=== PATIENT | male | born 1960 | race Two or more races ===

== ENCOUNTER 2020-06-12 12:53 | Outpatient (REF) | payer OTHER, SELFPAY ==
--- NOTE | 2020-06-12 | US_ITS ---
EXAMINATION: RIGHT and LEFT LOWER EXTREMITY VENOUS ULTRASOUND (Reflux Exam) CLINICAL INDICATION: leg pain and varicose veins. COMPARISON: None. TECHNIQUE: Color flow triplex imaging and compression Doppler was performed to evaluate both the deep and the superficial systems bilaterally. To evaluate the superficial system, the examination was performed in the upright position. Color-flow Doppler ultrasound and compression ultrasound were utilized. In addition, maneuvers were utilized to demonstrate reflux. FINDINGS: 1. DEEP VENOUS ULTRASOUND OF THE RIGHT LOWER EXTREMITY: Respiratory variation, normal compression and augmented flow are noted in the right common femoral vein as well as the right popliteal vein and there is no evidence of deep venous thrombosis at these locations. There is no evidence of reflux in the deep system in either the common femoral vein or the popliteal vein. There is no evidence of a Roberson's cyst. 2. SUPERFICIAL ULTRASOUND WITH DOPPLER OF RIGHT LOWER EXTREMITY: The right great saphenous vein at the saphenofemoral junction measures 7 mm, at the mid thigh 2 mm, jkfph-hah-bdqd 2 mm, ldjoo-nkk-esof 2 mm, at mid calf 2 mm and at the ankle measures 2 mm. There is no reflux demonstrated in the right great saphenous vein. There is a small lateral accessory right greater saphenous vein that measures 2 mm and does not demonstrate reflux. The right small saphenous vein measures 1 mm and shows no reflux. There is a varicosity in the mid thigh and at the knee that measure 4 mm and do not demonstrate reflux. 3. DEEP VENOUS ULTRASOUND OF THE LEFT LOWER EXTREMITY: Respiratory variation, normal compression and augmented flow are noted in the left common femoral vein as well as the left popliteal vein and there is no evidence of deep venous thrombosis at these locations. There is no evidence of reflux in the deep system in either the common femoral vein or the popliteal vein. . There is no evidence of a Roberson's cyst. 4. SUPERFICIAL ULTRASOUND WITH DOPPLER OF LEFT LOWER EXTREMITY: Left great saphenous vein at the saphenofemoral junction measures 5 mm, at the mid thigh 3 mm, jmnxr-qdo-zzlg 2 mm, beocn-jes-cbgo 4 mm, at mid calf to mm and at the ankle measures 2 mm. There is 3.4 seconds reflux in the left greater saphenous vein at the mid thigh and at the knee. There is an accessory lateral greater saphenous vein that measures 3 mm and does not demonstrate reflux. The left small saphenous vein measures 1-2 mm and shows no reflux. IMPRESSION: 1. No evidence of reflux or thrombus in the common femoral veins or popliteal veins bilaterally. 2. Left greater saphenous vein reflux. No right greater saphenous vein reflux.
== END 2020-06-12 12:54 | disposition home or self-care (01) ==
LOC: HO.US 12:53
PROVIDERS: Visit Provider Surgery Vascular Surgery
DX: I83.12 Varicose veins of left lower extremity with inflammation (principal)
CPT/HCPCS: 93970

== ENCOUNTER → 2020-06-26 13:02 | Outpatient (BNVA) | payer OTHER, SELFPAY | PROVIDERS: PCP Internal Medicine; Visit Provider Surgery Vascular Surgery | DX: Z76.89 Persons encountering health services in other specified circumstances (principal) ==

== ENCOUNTER → 2020-07-25 10:28 | Outpatient (BNVA) | payer OTHER, SELFPAY | PROVIDERS: PCP Internal Medicine; Visit Provider Surgery Vascular Surgery | DX: I83.12 Varicose veins of left lower extremity with inflammation (principal) | CPT/HCPCS: 36482 ==

== ENCOUNTER → 2020-08-07 12:57 | Outpatient (BNVA) | payer OTHER, SELFPAY | PROVIDERS: PCP Internal Medicine; Visit Provider Surgery Vascular Surgery | DX: Z76.89 Persons encountering health services in other specified circumstances (principal) ==

== ENCOUNTER → 2020-08-08 14:25 | Outpatient (BNVA) | payer OTHER, SELFPAY | PROVIDERS: PCP Internal Medicine; Referring Provider Internal Medicine; Visit Provider Nurse Practitioner | DX: Z76.89 Persons encountering health services in other specified circumstances (principal) ==

== ENCOUNTER → 2020-08-22 11:23 | Outpatient (BNVA) | payer OTHER, SELFPAY | PROVIDERS: PCP Internal Medicine; Referring Provider Internal Medicine; Visit Provider Surgery Vascular Surgery | DX: I83.12 Varicose veins of left lower extremity with inflammation (principal) | CPT/HCPCS: 37766 ==

== ENCOUNTER → 2020-09-04 10:24 | Outpatient (BNVA) | payer OTHER, SELFPAY | PROVIDERS: PCP Internal Medicine; Visit Provider Surgery Vascular Surgery | DX: Z76.89 Persons encountering health services in other specified circumstances (principal) ==

== ENCOUNTER 2021-07-02 09:02 | Outpatient (REF) | payer OTHER, SELFPAY ==
--- NOTE | 2021-07-02 | PFT_ITS ---
FLOWS: FEV1 109% of predicted at 3.88 L. FVC 101% of predicted at 4.64 L. FEV1 to FVC ratio of 0.84. No bronchodilator response. LUNG VOLUMES: Total lung capacity 107% of predicted at 7.53 L. Residual volume 114% of predicted at 2.65 L. Slow vital capacity 104% of predicted at 4.89 L. Expiratory reserve volume 66% of predicted at 0.91 L. Diffusion capacity is normal. IMPRESSION: No obstructive or restrictive ventilatory defect. No bronchodilator response. Normal pulmonary function test. MD TIAGO Morales/MODL / [id number] MTDD
== END 2021-07-02 09:03 | disposition home or self-care (01) ==
LOC: HO.RESP 09:02
PROVIDERS: PCP Internal Medicine; Visit Provider Internal Medicine
DX: R05.9 Cough, unspecified (principal)
CPT/HCPCS: 94060; 94727; 94729

== ENCOUNTER → 2021-08-10 12:56 | Outpatient (BNVA) | payer OTHER, SELFPAY | PROVIDERS: PCP Internal Medicine; Referring Provider Internal Medicine; Visit Provider Nurse Practitioner ==

== ENCOUNTER 2021-12-24 08:24 | Day surgery (SDC) | payer OTHER, SELFPAY ==
[2021-12-16 12:46] VITALS: BMI 28.5
[2021-12-24 08:26] VITALS: BP 163/92; PULSE 69; RESP 18; TEMP 36.6; O2SAT 100
--- NOTE | 2021-12-24 08:55 | MHC.SHP ---
Pre-Procedural Eval Section A Date of Service: 12/24/21 Section B Chief Complaint: screening Details of Present Illness: FHX of CRC, brother at age 45 of CRC. Relevant Family History (Specify if Yes): Yes Relevant Social History: None Present Medications: see Short Stay Collaborative assessment Medical History: Significant History (HTN, Hep C, varicose veins ) History of Previous Operations: Relevant previous surgery/procedure and date(s) (History of colonoscopy Mass of ureter) Allergies: Allergies Allergy/AdvReac Type Severity Reaction Status Date / Time SEASONAL ALLERGIES Allergy Unknown UNKNOWN Uncoded 05/22/20 15:12 Review of Systems Sugical H&P ROS: Negative: Constitution, Cardiovascular, Respiratory, Neurological, Psychiatric, Hem-Onc, Allergic/Immunologic, Gastrointestinal, Genitourinary, Musculoskeletal, Integumentary, Endocrine and Eyes/Ears/Nose/Throat Exam Surgical H&P Exam: Normal: HEENT, Normal: Heart, Normal: Lungs, Normal: Extremities, Normal: Abdomen, Normal: Skin and Normal: Neurological Plan Diagnosis/Plan: Unchanged I have reviewed the history and physical and performed a pertinent physical examination on my patient. No changes have occurred unless specified.
--- NOTE | 2021-12-24 09:26 | PM.OP ---
Brief Operative Note Date of Service: 12/24/21 Pre-op diagnosis: FH CRC Post-op diagnosis: same Procedure: see op note Surgeon: Hussein Whitehead MD Anesthesia: MAC Was an Wrecking Supervisor used for this Procedure?: No Estimated blood loss (mL): 0 Condition: stable Disposition: PACU
--- NOTE | 2021-12-24 09:27 | W.PM.OPN ---
Operative Note Operative Note Date of Service: 12/24/21 Narrative: Operative Information Procedure Description: Colonoscopy Indication: colon cancer screening, high risk-FH of CRC in brother Anesthesia: MAC COLONOSCOPY Instrument: Olympus variable stiffness pediatric scope 190L Colonoscopy Monitoring: Vital signs and clinical assessment, continuous EKG monitoring, Pulse oximetry, Carbon Dioxide monitoring and blood pressure monitoring were done throughout the procedure. Colon withdrawal time was 11 minutes. Procedure: The patient was placed in the left lateral decubitis position and pre-procedure medications were administered. After a digital rectal examination of the ano-rectum, the video colonoscope was inserted into the rectum and advanced through the colon to the cecum/TI. The colonoscope was slowly withdrawn in a retrograde panoramic fashion and the colon mucosa was carefully examined including a retroflexed view of the rectum. Findings and interventions are described below. Procedure Difficulty: easy Findings: Terminal Ileum-normal Right sided retroflexion was normal Cecum:normal Ascending Colon: normal Transverse Colon -normal Descending Colon:normal Sigmoid Colon: 9-10 mm sessile polyp removed with cold snare and then some residual tissue with cold forceps Rectum: Retroflexion with small internal hemorrhoids, grade I Anorectum - normal Colon preparation: [place] Bowel Preparation Scale Right colon; 2 Transverse colon: 3 Left colon; 3 (0 = Unprepared colon segment with mucosa not seen due to solid stool that cannot be cleared. 1 = Portion of mucosa of the colon segment seen, but other areas of the colon segment not well seen due to staining, residual stool and/or opaque liquid. 2 = Minor amount of residual staining, small fragments of stool and/or opaque liquid, but mucosa of colon segment seen well. 3 = Entire mucosa of colon segment seen well with no residual staining, small fragments of stool or opaque liquid) Impression and Post Procedure Diagnosis: polyp internal hemorrhoids Plan: High fiber diet leaflet Avoid straining at stool, epsom salts and sitz bath, anusol supps or cream Repeat Colonoscopy in 5 years due to FH of CRC or earlier if clinically indicated Above findings were reviewed with the patient and relevant handouts were provided if indicated.
[2021-12-24 10:05] VITALS: BP 94/48; PULSE 56; RESP 16; TEMP 36.5; O2SAT 98
[2021-12-24 10:20] VITALS: BP 116/67; PULSE 64; RESP 16; TEMP 36.5; O2SAT 100
== END 2021-12-24 10:42 | disposition home or self-care (01) ==
PROVIDERS: PCP Internal Medicine; Visit Provider Internal Medicine Gastroenterology
PROC: 0DJD8ZZ Inspection of Lower Intestinal Tract, Via Natural or Artificial Opening Endoscopic (ICD-10-PCS; CPT 45378; principal; 2021-12-24 10:10)
DX: Z12.11 Encounter for screening for malignant neoplasm of colon (principal); Z86.010 Personal history of colon polyps; Z80.0 Family history of malignant neoplasm of digestive organs; K63.5 Polyp of colon; K64.0 First degree hemorrhoids; B19.20 Unspecified viral hepatitis C without hepatic coma; I10 Essential (primary) hypertension; R73.9 Hyperglycemia, unspecified; Z79.899 Other long term (current) drug therapy
CPT/HCPCS: 45385; 45380; 88305

== ENCOUNTER 2022-06-24 07:41 | Outpatient (REF) | payer OTHER, SELFPAY ==
--- NOTE | ~2022-06-24 | US_ITS ---
EXAMINATION: US COMPLETE ABDOMEN WITH LIVER ELASTOGRAPHY CLINICAL INFORMATION: Chronic viral hepatitis C COMPARISON: None. TECHNIQUE: Real-time imaging of the abdominal viscera. Noninvasive ultrasound liver fibrosis assessment is performed using Aissat[employer] ElastPQ point quantification shear wave elastography (2D-SWE) with a C5-2 MHz transducer. Multiple elastography samples are obtained. FINDINGS: PANCREAS: Normal. ABDOMINAL AORTA: The proximal, middle, and distal aortic segments are normal in caliber. There is evidence of atherosclerotic disease with vessel wall calcification. INFERIOR VENA CAVA: Visualized portions are normal. LIVER: Liver echotexture is slightly heterogeneous. No focal lesion or intrahepatic biliary duct dilatation. The left lobe is enlarged. The right lobe measures 12 cm in length. The left lobe measures 13.6 cm in length. Portal flow is normal/hepatopedal Shear wave liver elastography median stiffness is 2 m/s (reference: normal median stiffness is 1.3 m/s or less). IQR/median stiffness to assess sampling precision is 0.07 (reference: good quality data set is IQR/median stiffness of 0.15 or less). GALLBLADDER: Small 2 mm echogenic density adjacent to the gallbladder wall probably representing a small gallbladder wall polyp. No definite gallstones. Normal-size gallbladder. COMMON BILE DUCT: Normal in caliber measuring 0.5 cm in diameter. RIGHT KIDNEY: Normal. No hydronephrosis. No renal calculi or focal parenchymal lesions. The kidney measures 12 cm in maximum dimension. LEFT KIDNEY: Normal. No hydronephrosis. No renal calculi or focal parenchymal lesions. The kidney measures 12.6 cm in maximum dimension. SPLEEN: The spleen is enlarged. The spleen measures 15.6 cm in maximum dimension. FREE FLUID: None. US/US abdomen comp w elastography IMPRESSION: 1. Impression: Question mild cirrhotic changes of the liver. No focal liver lesion. Small gallbladder wall polyp. Enlarged spleen. No ascites. 2. Liver elastography: Adequate liver sampling. Increased liver stiffness suggestive of compensated advanced chronic liver disease but need further test for confirmation. REFERENCE: Society of Radiologists in Ultrasound Liver Stiffness Thresholds (2019): LIVER STIFFNESS THRESHOLDS: *Liver Stiffness equal or less than 1.3 m/s: High probability of being normal. *Liver Stiffness less than 1.7 m/s: In the absence of other known clinical signs, rules out compensated advanced chronic liver disease. *Liver Stiffness 1.7-2.1 m/s: Suggestive of compensated advanced chronic liver disease but need further test for confirmation. *Liver Stiffness over 2.1 m/s: Rules in compensated advanced chronic liver disease. *Liver Stiffness over 2.4 m/s: Suggestive of clinically significant portal hypertension. QUALITY OF DATA SET: *IQR/Median value equal or less than 0.15 implies a quality data set. *IQR/Median value over 0.15 implies a poor quality data set. SIGNIFICANT CHANGE FROM PRIOR EXAM: Significant change if liver stiffness measurement is 10% or greater from prior exam. OTHER CONSIDERATIONS: The stage of liver fibrosis may be overestimated in the setting of acute hepatitis, liver inflammation, elevated liver function tests, hepatic vascular congestion, obstructive cholestasis, non-fasting state, and infiltrative diseases such as amyloidosis and lymphoma. In some patients with NAFLD, the liver stiffness thresholds for compensated advanced chronic liver disease may be lower. In causes other than viral hepatitis and NAFLD, liver stiffness thresholds are not well established.
== END 2022-06-24 07:42 | disposition home or self-care (01) ==
LOC: HO.US 07:41
PROVIDERS: PCP Internal Medicine; Visit Provider Internal Medicine
DX: B18.2 Chronic viral hepatitis C (principal)
CPT/HCPCS: 76705; 76981

== ENCOUNTER 2023-06-22 08:08 | Outpatient (AMB) | payer MEDICARE, SELFPAY ==
--- NOTE | 2023-06-22 08:16 | A.OFFVIS_ITS ---
Intake Vital Signs 06/22/23 08:17 Height 5 ft 9 in Weight 170 lb BMI 25.1 BP 144/60 H Blood Pressure Location Lt brachial Position Sitting Pulse 62 Intake Visit Reasons: Hep C follow up Intake Note: Patient follow up for HCV Patient denies any GI issues. Morning Nanny Required: No Accompanied by: Self / Same As Patient Allergies SEASONAL ALLERGIES Allergy (Unknown, Uncoded 02/23/22 13:26) UNKNOWN HPI Hep C follow up HPI Details This is a [facility] patient and last time I saw in the setting hepatitis C was being treated in-house by their providers. He says says he was tx'ed for Hep C but did not achieve SVR. He has an upcoming appt with his Hep C provider to discuss re treatment. He says he has insurance problems and coverage problems with the tx. CURRENT CORRESPONDENCE On 06/21/23 @ 13:47 Laure Abbott Wrote To ScarLaure (2) Okay, now that makes more sense. No I should be able to handle this. On 06/21/23 @ 13:39 Sohan Johnson Wrote To ScarDecember Per [facility] notes reviewed patient was treated for Hep C by Dr. Mcbride on 2019 but PT failed treatment with Epclusa. He was referred to us back in September this year for management of Hep C and liver cirrhosis. Should he go to MD? PMX Allergic rhinitis Hepatitis C Hypertension Mild varicose veins of lower extremities Impaired fasting glucose Nocturia Erectile dysfunction Housing instability Allergic rhinitis Tubular adenoma * SURGICAL HISTORY Colonoscopy Removal of ureter mass 2012 * ALLERGIES Jey inhibitors * LABS SUPPLIED BY PCP: 06/15/2022 AST/ALT 176/119 alk-phos is normal total bilirubin 1.0, unremarkable renal panel, GGT 51, ULTRASOUND OF THE ABDOMEN WITH ELASTOGRAPHY. 06/30/22 (F-2.) .FINDINGS: PANCREAS: Normal. ABDOMINAL AORTA: The proximal, middle, and distal aortic segments are normal in caliber. There is evidence of atherosclerotic disease with vessel wall calcification. INFERIOR VENA CAVA: Visualized portions are normal. LIVER: Liver echotexture is slightly heterogeneous. No focal lesion or intrahepatic biliary duct dilatation. The left lobe is enlarged. The right lobe measures 12 cm in length. The left lobe measures 13.6 cm in length. Portal flow is normal/hepatopedal Shear wave liver elastography median stiffness is 2 m/s (reference: normal median stiffness is 1.3 m/s or less). IQR/median stiffness to assess sampling precision is 0.07 (reference: good quality data set is IQR/median stiffness of 0.15 or less). GALLBLADDER: Small 2 mm echogenic density adjacent to the gallbladder wall probably representing a small gallbladder wall polyp. No definite gallstones. Normal-size gallbladder. COMMON BILE DUCT: Normal in caliber measuring 0.5 cm in diameter. RIGHT KIDNEY: Normal. No hydronephrosis. No renal calculi or focal parenchymal lesions. The kidney measures 12 cm in maximum dimension. LEFT KIDNEY: Normal. No hydronephrosis. No renal calculi or focal parenchymal lesions. The kidney measures 12.6 cm in maximum dimension. SPLEEN: The spleen is enlarged. The spleen measures 15.6 cm in maximum dimension. FREE FLUID: None. US/US abdomen comp w elastography IMPRESSION: 1. Impression: Question mild cirrhotic c hanges of the liver. No focal liver lesion. Small gallbladder wall polyp. Enlarged spleen. No ascites. 2. Liver elastography: Adequate liver s ampling. Increased liver stiffness suggestive of compensated advanced chronic liver disease but need further test for confirmation. TODAY'S VISIT THIS PATIENT HAS NOT BEEN SEEN SINCE 10/2021 No sgn/sx of liver disease. No ETOH, no repeat IVDU etc. he has failed to reg imens 1 years back PEG interferon/ribavirin and then Epclusa treatment more recently. He says he was told years ago that he had a ?harder to cure? genotype. Since I have no information on genotype last viral load etc. I will need to retest him. This is also true because it has been over a year since his last labs and his last ultrasound with elastography. I explained to him that this really is an insurance requirement and also will help ensure that there are no problems to risk his health or the success of treatment. Once I noted that he does not or does have any [place] hepatitis-B infection to watch for and once I have the labs then we will consider starting him on Vosevi rescue therapy. Time was spent educating him that this treatment should be well tolerated along same lines as his Epclusa.. He is very eager a to be cured. He is trying to live ?as clean as possible? he is trying to attended his diet he exercises regularly and does not engage in any unhealthy habits. He does have hypertension which is well controlled. At this point return office visit in 8 weeks or sooner depending on how long it takes us to get the ultrasound. He is going to go update his insurance information with my staff in the front office so that this will be ready when we try to go get a prior approval for his medications. [facility] Medical History (Updated 06/22/23 @ 10:04 by MUKUL Slade) Hepatitis Hyperglycemia Complications affecting other specified body systems, hypertension Surgical History History of colonoscopy Mass of ureter Family History Father No problems noted. Mother Family history of high blood pressure Social History Alcohol intake: never Patient Tobacco Use Status: Never used Tobacco Advance Directives Date on File: 06/12/20 Review of Systems Const Denies fatigue, Denies fever(s), Denies night sweats, Denies poor appetite and Denies weight loss Eyes Details: glasses Reports requires corrective lenses ENT Reports Normal hearing present, Denies dental pain, Denies dysphagia, Denies hearing loss, Denies mouth pain, Denies odynophagia, Denies throat swelling, Denies tongue swelling and Reports other (Dentition adequate) Card Reports no additional complaints Resp Reports no additional complaints GI Denies abdominal pain, Denies melena, Denies bloating, Denies hematochezia, Denies constipation, Denies GI cramping, Denies dysphagia, Denies excessive flatus, Denies early satiety, Denies heartburn, Denies diarrhea, Denies nausea, Denies odynophagia, Denies vomiting and Denies hematemesis Skin/Breast Denies pruritus, Denies lesions, Denies rash and Denies jaundice Neuro Reports Normal hearing present and Denies Abnormal speech present Endo Denies fatigue Aller/Immun Denies throat swelling and Denies tongue swelling Physical Exam Vital Signs: Last Vital Signs Pulse 62 06/22/23 08:17 BP 144/60 H 06/22/23 08:17 BMI result Body Mass Index 25.1 Const General: cooperative, no acute distress, well developed and well groomed Nutritional Appearance: average body habitus and well nourished Orientation/consciousness: oriented to person, oriented to place and oriented to time Limitations: No language barrier HEENT Head: Yes normocephalic and Yes atraumatic Eyes General: appearance normal, both eyes and all related structures Pupils: Equal, round and reactive pupils present Neck Neck: Yes normal visual inspection and Yes no lymphadenopathy Thyroid: Thyroid normal Resp Effort & Inspection: normal respiratory effort and able to speak in complete sentences Auscultation: clear to auscultation bilaterally Cardio Rate: regular rate Rhythm: regular rhythm Heart sounds: Normal, physiologic split S2 sound present Peripheral pulses: radial pulses present and posterior tibial pulses present GI Inspection: No distended and No Abdominal panniculus present Palpation (GI): Soft to palpation, nontender, no guarding, not rigid and No hepatosplenomegaly present Percussion: Yes normal to percussion Auscultation: normal bowel sounds Rectal Exam - Male: Yes deferred Skin General skin exam: no rashes or lesions noted, turgor normal, skin not dry, no jaundice, No spider nevi and no striae Rashes: no rashes Nails: normal Neuro General: oriented to person, oriented to place and oriented to time Cranial nerves: Yes Equal, round and reactive pupils present and Yes Normal hearing present Speech: No Abnormal speech present Extrem General: Yes normal to inspection, No clubbing, No cyanosis and No edema Psych Appearance: grossly normal and well kempt Mental Status: mental status grossly normal Speech and movement: Normal speech and movement present Affect: normal affect Attitude: cooperative Thought process: Normal thought process present and not confabulating Thought content: Normal thought content present Insight: Fair insight present (Psych) Judgement: Fair judgement present (Psych) Assessment & Plan Assessment & Plan (1) Hepatitis C: Comment: In the past was treated by [facility] but recently failed to have a sustained viral clearance status post Epclusa and was referred to our services Code(s): B19.20 - Unspecified viral hepatitis C without hepatic coma Plan: THIS PATIENT HAS NOT BEEN SEEN SINCE 10/2021 No sgn/sx of liver disease. No ETOH, no repeat IVDU etc. he has failed to regimens 1 years back PEG interferon/ribavirin and then Epclusa treatment more recently. He says he was told years ago that he had a ?harder to cure? genotype. Since I have no information on genotype last viral load etc. I will need to retest him. This is also true because it has been over a year since his last labs and his last ultrasound with elastography. I explained to him that this really is an insurance requirement and also will help ensure that there are no problems to risk his health or the success of treatment. Once I noted that he does not or does have any [place] hepatitis-B infection to watch for and once I have the labs then we will consider starting him on Vosevi rescue therapy. Time was spent educating him that this treatment should be well tolerated along same lines as his Epclusa.. He is very eager a to be cured. He is trying to live ?as clean as possible? he is trying to attended his diet he exercises regularly and does not engage in any unhealthy habits. He does have hypertension which is well controlled. At this point return office visit in 8 weeks or sooner depending on how long it takes us to get the ultrasound. He is going to go update his insurance information with my staff in the front office so that this will be ready when we try to go get a prior approval for his medications. (2) Transaminitis: Code(s): R74.01 - Elevation of levels of liver transaminase levels Orders: Orders Hepatitis C Viral Load Today B19.20 - Unspecified viral hepatitis C without hepatic coma, R74.01 - Elevation of levels of liver transaminase levels Liver Fibrosis Pnl Today B19.20 - Unspecified viral hepatitis C without hepatic coma, R74.01 - Elevation of levels of liver transaminase levels T Spot TB Today B19.20 - Unspecified viral hepatitis C without hepatic coma, R74.01 - Elevation of levels of liver transaminase levels Alpha Fetoprotein Today B19.20 - Unspecified viral hepatitis C without hepatic coma, R74.01 - Elevation of levels of liver transaminase levels JEFF Reflex Titer and Pattern Today B19.20 - Unspecified viral hepatitis C without hepatic coma, R74.01 - Elevation of levels of liver transaminase levels Hepatitis A,B,C Profile Today B19.20 - Unspecified viral hepatitis C without hepatic coma, R74.01 - Elevation of levels of liver transaminase levels Hepatitis C Genotype Today B19.20 - Unspecified viral hepatitis C without hepatic coma, R74.01 - Elevation of levels of liver transaminase levels Comprehensive Met. Panel Today B19.20 - Unspecified viral hepatitis C without hepatic coma, R74.01 - Elevation of levels of liver transaminase levels Complete Blood Count Auto Diff Today B19.20 - Unspecified viral hepatitis C without hepatic coma, R74.01 - Elevation of levels of liver transaminase levels US abdomen comp w elastography Today B19.20 - Unspecified viral hepatitis C without hepatic coma, R74.01 - Elevation of levels of liver transaminase levels HIV Ab/Ag Today B19.20 - Unspecified viral hepatitis C without hepatic coma, R74.01 - Elevation of levels of liver transaminase levels Ferritin Today B19.20 - Unspecified viral hepatitis C without hepatic coma, R74.01 - Elevation of levels of liver transaminase levels Mitochondrial Antibody Today B19.20 - Unspecified viral hepatitis C without hepatic coma, R74.01 - Elevation of levels of liver transaminase levels Smooth Muscle Antibody Today B19.20 - Unspecified viral hepatitis C without hepatic coma, R74.01 - Elevation of levels of liver transaminase levels Coding Level of Care Code Est Pt Level 4 (52559) Diagnoses Hepatitis C B19.20 Transaminitis R74.01
[2023-06-22 08:17] VITALS: BP 144/60; PULSE 62; BMI 25.1
== END 2023-06-22 09:00 | disposition home or self-care (01) ==
PROVIDERS: PCP Internal Medicine; Visit Provider Nurse Practitioner
DX: B19.20 Unspecified viral hepatitis C without hepatic coma (principal); R74.01 Elevation of levels of liver transaminase levels
CPT/HCPCS: 99214

== ENCOUNTER 2023-06-22 08:08 | Outpatient (REF) | payer MEDICARE, SELFPAY ==
[2023-06-22 09:35] LABS: MANUAL DIFF FLAG NO
[2023-06-22 10:21] LABS: Basophils Percent Auto 0.5 % (0-2); Eosinophils Absolute Auto 0.1 X10*3/uL (0.0-0.4); Eosinophils Percent Auto 2.3 % (0-4); Hematocrit 42.5 % (42.0-52.0); Hemoglobin 14.9 g/dl (14.0-18.0); Imm Gran Abs Auto 0.01 X10*3/uL (0.00-0.03); Imm Gran Pct Auto 0.2 % (0.0-0.4); Lymphocytes Percent Auto 22.4 % (20-40); Mean Corpuscular HGB Conc 35.1 g/dl (31.0-36.0); Mean Corpuscular Hemoglobin 31.5 pg (27.0-33.0); Mean Corpuscular Volume 89.9 fL (80.0-98.0); Mean Platelet Volume 10.8 fL (9.4-12.4); Monocytes Absolute Auto 0.6 X10*3/uL (0.1-1.2); Monocytes Percent Auto 13.5 % (2-11); Neutrophils Absolute Auto 2.6 x10*3/uL (2.0-8.3); Neutrophils Percent Auto 61.1 % (45-73); Platelet Count 116 X10*3/uL (160-400); Red Blood Count 4.73 X10*6/uL (4.60-5.80); Red Cell Distribution Width 11.8 % (11.0-16.0); White Blood Count 4.3 X10*3/uL (4.8-10.8)
[2023-06-22 10:56] LABS: Alanine Aminotransferase 196 U/L (0-40); Albumin Level 3.8 g/dL (3.5-5.0); Alkaline Phosphatase 99 U/L (39-117); Anion Gap 13 (12-20); Aspartate Amino Transferase 114 U/L (5-37); Blood Urea Nitrogen 26 mg/dL (9-16); Calcium 9.2 mg/dL (8.4-10.2); Carbon Dioxide 23 mmol/L (22-29); Chloride 104 mmol/L (96-108); Estimated Glomerular Filt Rate > 60; Glucose Random 142 mg/dL (60-115); Potassium 4.1 mmol/L (3.3-5.1); Sodium 136 mmol/L (135-145); Total Protein 7.1 g/dL (6.5-8.0)
[2023-06-22 11:12] LABS: Ferritin 253 ng/mL (20-250); HBS Num1 67.44 mIU/mL (0-7.99); HBc Num1 4.77 S/CO (0.00-0.79); HBsAGNum1 0.39 S/CO (0.00-0.99); HIV AB/AG Nonreactive (Nonreactive); HIV Num 1 0.05 S/CO (0.00-0.99); Hepatitis A Antibody IgM 0.14 Index (0-0.79); Hepatitis B Surface Antigen Negative (Negative); ~HepC Num1 15.08 S/CO (0.00-0.79); ~Hepatitis A Antibody IgM Nonreactive (Nonreactive); ~Hepatitis B Surface Antibody REACTIVE (Nonreactive); ~Hepatitis C Antibody Reactive (Nonreactive)
[2023-06-22 12:14] LABS: HBc Num2 4.82 S/CO; HBc Num3 4.76 S/CO; Hepatitis B Core Antibody Reactive (Nonreactive)
[2023-06-23 12:38] LABS: Alpha Fetoprotein 4.8 ng/mL (<6.1)
[2023-06-24 11:54] LABS: Mitochondrial Antibodies NEGATIVE (NEGATIVE)
[2023-06-24 16:13] LABS: HCV RNA PCR Qn 3170000 IU/mL (NOT DETECTED)
[2023-06-24 22:23] LABS: TS Negative Control Passed; TS Panel A 0; TS Panel B 0; TS Positive Control Passed; TSpotTB Negative (Negative)
[2023-06-26 22:43] LABS: Smooth Muscle Antibody <20 U (<20)
[2023-06-27 10:00] LABS: Anti Nuclear Antibody Screen NEGATIVE (NEGATIVE)
[2023-06-29 10:13] LABS: HCV Genotype LiPA 1b
[2023-07-01 00:14] LABS: FIB-ALT 167 U/L (9-46); FIB-Alpha-2-Macroglobulin 329 mg/dL (106-279); FIB-Apolipoprotein A1 198 mg/dL (94-176); FIB-GGT 47 U/L (3-70); FIB-Haptoglobin 11 mg/dL (43-212); FIB-Total Bilirubin 0.9 mg/dL (0.2-1.2); Liver Fibrosis Score 0.84; Liver Fibrosis Stage F4; Nec Inflam Act Grade A3; Nec Inflam Act Score 0.88
== END 2023-06-22 08:09 | disposition home or self-care (01) ==
LOC: HO.LAB 08:08
PROVIDERS: PCP Internal Medicine; Visit Provider Nurse Practitioner
DX: B19.20 Unspecified viral hepatitis C without hepatic coma (principal); R74.01 Elevation of levels of liver transaminase levels; Z11.3 Encounter for screening for infections with a predominantly sexual mode of transmission
CPT/HCPCS: 36415; 80053; 81596; 82105; 82728; 85025; 86015; 86038; 86381; 86481; 86704; 86706; 86709; 86803; 87340; 87389; 87522; 87902; 99212

== ENCOUNTER 2023-07-21 09:50 | Outpatient (REF) | payer MEDICARE, SELFPAY ==
--- NOTE | ~2023-07-21 | US_ITS ---
EXAMINATION: US COMPLETE ABDOMEN WITH LIVER ELASTOGRAPHY CLINICAL INFORMATION: Viral hepatitis COMPARISON: Previous abdominal ultrasound most recent June 2022 TECHNIQUE: Real-time imaging of the abdominal viscera. Noninvasive ultrasound liver fibrosis assessment is performed using Aissat[employer] ElastPQ point quantification shear wave elastography (2D-SWE) with a C5-2 MHz transducer. Multiple elastography samples are obtained. FINDINGS: PANCREAS: Normal. ABDOMINAL AORTA: The proximal, middle aortic segments are normal in caliber. Distal abdominal aorta not well visualized due to bowel gas. INFERIOR VENA CAVA: Visualized portions are normal. LIVER: Echotexture is slightly increased and heterogeneous. The liver is normal in contour. The left lobe is enlarged. No focal lesion or intrahepatic biliary duct dilatation. The right lobe measures 12 cm in length. The left lobe measures 13 cm in length. Portal flow is normal/hepatopedal Shear wave liver elastography median stiffness is 2.2 m/s (reference: normal median stiffness is 1.3 m/s or less). Previous 1.97 m/s. IQR/median stiffness to assess sampling precision is 0.16 (reference: good quality data set is IQR/median stiffness of 0.15 or less). GALLBLADDER: two stable small polyps largest measuring 3 mm. The gallbladder is otherwise normal. No definite stones. COMMON BILE DUCT: Normal in caliber measuring 0.4 cm in diameter. RIGHT KIDNEY: Normal. No hydronephrosis. No renal calculi or focal parenchymal lesions. The kidney measures 11 cm in maximum dimension. LEFT KIDNEY: Normal. No hydronephrosis. No renal calculi or focal parenchymal lesions. The kidney measures 12 cm in maximum dimension. SPLEEN: The spleen is enlarged. The spleen measures 15 cm in maximum dimension. FREE FLUID: None. US/US abdomen comp w elastography IMPRESSION: 1. Impression: Slightly echogenic heterogeneous appearing liver. Enlarged spleen. Stable small gallbladder wall polyps. 2. Liver elastography: Slightly limited due to sampling error. Increased liver stiffness suggestive of compensated advanced chronic liver disease. REFERENCE: Society of Radiologists in Ultrasound Liver Stiffness Thresholds (2020): LIVER STIFFNESS THRESHOLDS: *Liver Stiffness equal or less than 1.3 m/s: High probability of being normal. *Liver Stiffness less than 1.7 m/s: In the absence of other known clinical signs, rules out compensated advanced chronic liver disease. *Liver Stiffness 1.7-2.1 m/s: Suggestive of compensated advanced chronic liver disease but need further test for confirmation. *Liver Stiffness over 2.1 m/s: Rules in compensated advanced chronic liver disease. *Liver Stiffness over 2.4 m/s: Suggestive of clinically significant portal hypertension. QUALITY OF DATA SET: *IQR/Median value equal or less than 0.15 implies a quality data set. *IQR/Median value over 0.15 implies a poor quality data set. SIGNIFICANT CHANGE FROM PRIOR EXAM: Significant change if liver stiffness measurement is 10% or greater from prior exam. OTHER CONSIDERATIONS: The stage of liver fibrosis may be overestimated in the setting of acute hepatitis, liver inflammation, elevated liver function tests, hepatic vascular congestion, obstructive cholestasis, non-fasting state, and infiltrative diseases such as amyloidosis and lymphoma. In some patients with NAFLD, the liver stiffness thresholds for compensated advanced chronic liver disease may be lower. In causes other than viral hepatitis and NAFLD, liver stiffness thresholds are not well established.
== END 2023-07-21 09:51 | disposition home or self-care (01) ==
LOC: HO.US 09:50
PROVIDERS: PCP Internal Medicine; Visit Provider Nurse Practitioner
DX: B19.20 Unspecified viral hepatitis C without hepatic coma (principal); R74.01 Elevation of levels of liver transaminase levels
CPT/HCPCS: 76705; 76981

== ENCOUNTER 2023-08-23 08:36 | Outpatient (AMB) | payer MEDICARE, SELFPAY ==
--- NOTE | 2023-08-23 08:54 | AM.OFFVISNUR ---
Intake Vital Signs 08/23/23 08:55 Height 5 ft 9 in Weight 173 lb BMI 25.5 Intake Visit Reasons: 2 month follow up Intake Note: Patient returns to in office visit today in 2 months follow up of hep C and labs. CC: Allergies SEASONAL ALLERGIES Allergy (Unknown, Uncoded 02/23/22 13:26) UNKNOWN Coding
[2023-08-23 08:55] VITALS: BP 154/80; PULSE 67; BMI 25.5
--- NOTE | 2023-08-23 08:59 | MHC.OFFVIS ---
Intake Vital Signs 08/23/23 08:55 Height 5 ft 9 in Weight 173 lb BMI 25.5 BP 154/80 H Blood Pressure Location Rt brachial Position Sitting Pulse 67 Intake Visit Reasons: 2 month follow up Intake Note: Patient returns to in office visit today in follow up of Hepatitis C. CC: Patient in 2 months follow up to discuss US and lab results. Reports doing well today and denies having any GI symptoms today. Instrument Sterilizer Required: No Accompanied by: Self / Same As Patient Allergies No Known Drug Allergies Allergy (Unknown, Verified 08/23/23 08:58) none SEASONAL ALLERGIES Allergy (Unknown, Uncoded 02/23/22 13:26) UNKNOWN Medication List - Last Reconciled 08/23/23 by MUKUL Slade blood pressure test kit-large As directed fluticasone propionate 50 mcg/actuation 1 spray intranasal BID losartan-hydrochlorothiazide 50-12.5 mg 1 tab PO DAILY sildenafil mg PO nyctjllboj-yelxvrsu-hfvtisyjry 400-100-100 mg (Vosevi) 1 tab PO DAILY tamsulosin 0.4 mg PO DAILY HPI 2 month follow up HPI Details Assessment & Plan (1) Hepatitis C: Comment: In the past was treated by [facility] but recently failed to have a sustained viral clearance status post Epclusa and was referred to our services Code(s): B19.20 - Unspecified viral hepatitis C without hepatic coma Plan: THIS PATIENT HAS NOT BEEN SEEN SINCE 10/2021 No sgn/sx of liver disease. No ETOH, no repeat IVDU etc. he has failed to regimens 1 years back PEG interferon/ribavirin and then Epclusa treatment more recently. He says he was told years ago that he had a ?harder to cure? genotype. Since I have no information on genotype last viral load etc. I will need to retest him. This is also true because it has been over a year since his last labs and his last ultrasound with elastography. I explained to him that this really is an insurance requirement and also will help ensure that there are no problems to risk his health or the success of treatment. Once I noted that he does not or does have any [place] hepatitis-B infection to watch for and once I have the labs then we will consider starting him on Vosevi rescue therapy. Time was spent educating him that this treatment should be well tolerated along same lines as his Epclusa.. He is very eager a to be cured. He is trying to live ?as clean as possible? he is trying to attended his diet he exercises regularly and does not engage in any unhealthy habits. He does have hypertension which is well controlled. At this point return office visit in 8 weeks or sooner depending on how long it takes us to get the ultrasound. He is going to go update his insurance information with my staff in the front office so that this will be ready when we try to go get a prior approval for his medications. (2) Transaminitis: Code(s): R74.01 - Elevation of levels of liver transaminase levels Orders: Orders Hepatitis C Viral Load Today B19.20 - Unspecifi ed viral hepatitis C without hepatic coma, R74.01 - El evation of levels of liver transamin ase levels Liver Fibrosis Pnl Today B19.20 - Unspecifi ed viral hepatitis C without hepatic coma, R74.01 - El evation of levels of liver transamin ase levels T Spot TB Today B19.20 - Unspecifi ed viral hepatitis C without hepatic coma, R74.01 - El evation of levels of liver transamin ase levels Alpha Fetoprotein Today B19.20 - Unspecifi ed viral hepatitis C without hepatic coma, R74.01 - El evation of levels of liver transamin ase levels JEFF Reflex Titer a nd Pattern Today B19.20 - Unspecifi ed viral hepatitis C without hepatic coma, R74.01 - El evation of levels of liver transamin ase levels Hepatitis A,B,C Pr ofile Today B19.20 - Unspecifi ed viral hepatitis C without hepatic coma, R74.01 - El evation of levels of liver transamin ase levels Hepatitis C Genoty pe Today B19.20 - Unspecifi ed viral hepatitis C without hepatic coma, R74.01 - El evation of levels of liver transamin ase levels Comprehensive Met. Panel Today B19.20 - Unspecifi ed viral hepatitis C without hepatic coma, R74.01 - El evation of levels of liver transamin ase levels Complete Blood Cou nt Auto Diff Today B19.20 - Unspecifi ed viral hepatitis C without hepatic coma, R74.01 - El evation of levels of liver transamin ase levels US abdomen comp w elastography Today B19.20 - Unspecifi ed viral hepatitis C without hepatic coma, R74.01 - El evation of levels of liver transamin ase levels HIV Ab/Ag Today B19.20 - Unspecifi ed viral hepatitis C without hepatic coma, R74.01 - El evation of levels of liver transamin ase levels Ferritin Today B19.20 - Unspecifi ed viral hepatitis C without hepatic coma, R74.01 - El evation of levels of liver transamin ase levels Mitochondrial Anti body Today B19.20 - Unspecifi ed viral hepatitis C without hepatic coma, R74.01 - El evation of levels of liver transamin ase levels Smooth Muscle Anti body Today B19.20 - Unspecifi ed viral hepatitis C without hepatic coma, R74.01 - El evation of levels of liver transamin ase levels LABS: Laboratory Tests 06/22/23 09:21 WBC 4.3 L Hgb 14.9 Hct 42.5 Plt Count 116 L Estimated GFR > 60 Ferritin 253 H Total Bilirubin 1.0 AST 114 H ALT 196 H Alkaline Phosphata se 99 Liver GGT 47 Liver Fibrosis Sta ge F4 Alpha Fetoprotein 4.8 JEFF Screen NEGATIVE Anti-Mitochondrial Ab NEGATIVE Anti-Smooth Muscle Ab <20 Hepatitis A IgM Ab Nonreactive Hep Bs Antigen Negative Hep Bs Antibody REACTIVE Hep B Core Total A b Reactive Hepatitis C Ab (EI A) Reactive H HCV RNA Genotype L iPA 1b HCV RNA (PCR) IUs/ ml [id number] H HCV RNA PCR log IU s/ml 6.50 H HIV 1&2 Ab/P24 Ag 4thGn Nonreactive TB Test (T-Spot) C om Negative ULTRASOUND OF THE ABDOMEN ELASTOGRAPHY . 07/22/23 . (F3) FINDINGS: PANCREAS: Normal. ABDOMINAL AORTA: The proximal, middle aortic segments are normal in caliber. Distal abdominal aorta not well visualized due to bowel gas. INFERIOR VENA CAVA: Visualized portions are normal. LIVER: Echotexture is slightly increased and heterogeneous. The liver is normal in contour. The left lobe is enlarged. No focal lesion or intrahepatic biliary duct dilatation. The right lobe measures 12 cm in length. The left lobe measures 13 cm in length. Portal flow is normal/hepatopedal Shear wave liver elastography median stiffness is 2.2 m/s (reference: normal median stiffness is 1.3 m/s or less). Previous 1.97 m/s. IQR/median stiffness to assess sampling precision is 0.16 (reference: good quality data set is IQR/median stiffness of 0.15 or less). GALLBLADDER: two stable small polyps largest measuring 3 mm. The gallbladder is otherwise normal. No definite stones. COMMON BILE DUCT: Normal in caliber measuring 0.4 cm in diameter. RIGHT KIDNEY: Normal. No hydronephrosis. No renal calculi or focal parenchymal lesions. The kidney measures 11 cm in maximum dimension. LEFT KIDNEY: Normal. No hydronephrosis. No renal calculi or focal parenchymal lesions. The kidney measures 12 cm in maximum dimension. SPLEEN: The spleen is enlarged. The spleen measures 15 cm in maximum dimension. FREE FLUID: None. US/US abdomen comp w elastography IMPRESSION: 1. Impression: Slightly echogenic heterogeneous appearing liver. Enlarged spleen. Stable small gallbladder wall polyps. 2. Liver elastography: Slightly limited due to sampling error. Increased liver stiffness suggestive of compensated advanced chronic liver disease. TODAY'S VISIT He continues to feel well without any signs or symptoms of overt liver disease. We review all of the labs and he does have hepatitis C genotype 1 B that has failed PEG interferon treatment and Epclusa. At this point we will progress him to [facility]. He was unaware that he also had a [place] hepatitis-B infection and I educate him about this because of the importance of watching for possible reactivation. I explained to him that his body fought the initial infection off and he is not carrying any viral load so he cannot transmitted this infection but it is important that he keep his appointments for his lab follow-ups we can make sure we do not complicate his cure possibility. He is aware that he still contends med hepatitis C since he does carry an active viral load. He avoids repeat risky behaviors and he is aware of the behaviors he should avoid to limit transmission to anyone else. At this point we need to do a prior approval for the medication and he is aware that he should call us before he starts treatment so that we can set up his lab in follow-up date. Return office visit to be determined. [facility] Medical History Hepatitis Hyperglycemia Complications affecting other specified body systems, hypertension Surgical History History of colonoscopy Mass of ureter Family History Father No problems noted. Mother Family history of high blood pressure Social History Alcohol intake: never Patient Tobacco Use Status: Never used Tobacco Advance Directives Date on File: 06/12/20 Review of Systems Const Denies fatigue, Denies fever(s), Denies night sweats, Denies poor appetite and Denies weight loss Eyes Details: glasses Reports requires corrective lenses ENT Reports Normal hearing present, Denies dental pain, Denies dysphagia, Denies hearing loss, Denies mouth pain, Denies odynophagia, Denies throat swelling, Denies tongue swelling and Reports other (Dentition adequate) Card Reports no additional complaints Resp Reports no additional complaints GI Denies abdominal pain, Denies melena, Denies bloating, Denies hematochezia, Denies constipation, Denies GI cramping, Denies dysphagia, Denies excessive flatus, Denies early satiety, Denies heartburn, Denies diarrhea, Denies nausea, Denies odynophagia, Denies vomiting and Denies hematemesis Skin/Breast Denies pruritus, Denies lesions, Denies rash and Denies jaundice Neuro Reports Normal hearing present and Denies Abnormal speech present Endo Denies fatigue Aller/Immun Denies throat swelling and Denies tongue swelling Physical Exam Vital Signs: Last Vital Signs Pulse 67 08/23/23 08:55 BP 154/80 H 08/23/23 08:55 BMI result Body Mass Index 25.5 Const General: cooperative, no acute distress, well developed and well groomed Nutritional Appearance: average body habitus and well nourished Orientation/consciousness: oriented to person, oriented to place and oriented to time Limitations: No language barrier HEENT Head: Yes normocephalic and Yes atraumatic Eyes General: appearance normal, both eyes and all related structures Pupils: Equal, round and reactive pupils present Neck Neck: Yes normal visual inspection and Yes no lymphadenopathy Thyroid: Thyroid normal Resp Effort & Inspection: normal respiratory effort and able to speak in complete sentences Auscultation: clear to auscultation bilaterally Cardio Rate: regular rate Rhythm: regular rhythm Heart sounds: Normal, physiologic split S2 sound present Peripheral pulses: radial pulses present and posterior tibial pulses present GI Inspection: No distended and No Abdominal panniculus present Palpation (GI): Soft to palpation, nontender, no guarding, not rigid and No hepatosplenomegaly present Percussion: Yes normal to percussion Auscultation: normal bowel sounds Rectal Exam - Male: Yes deferred Skin General skin exam: no rashes or lesions noted, turgor normal, skin not dry, no jaundice, No spider nevi and no striae Rashes: no rashes Nails: normal Neuro General: oriented to person, oriented to place and oriented to time Cranial nerves: Yes Equal, round and reactive pupils present and Yes Normal hearing present Speech: No Abnormal speech present Extrem General: Yes normal to inspection, No clubbing, No cyanosis and No edema Psych Appearance: grossly normal and well kempt Mental Status: mental status grossly normal Speech and movement: Normal speech and movement present Affect: normal affect Attitude: cooperative Thought process: Normal thought process present and not confabulating Thought content: Normal thought content present Insight: Good insight present (Psych) Judgement: Good judgement present (Psych) Assessment & Plan Assessment & Plan (1) Hepatitis C: Comment: In the past was treated by [facility] but recently failed to have a sustained viral clearance status post Epclusa and was referred to our services Laboratory Tests 06/22/23 09:21 WBC 4.3 L Hgb 14.9 Hct 42.5 Plt Count 116 L Estimated GFR > 60 Ferritin 253 H Total Bilirubin 1.0 AST 114 H ALT 196 H Alkaline Phosphatase 99 Liver GGT 47 Liver Fibrosis Stage F4 Alpha Fetoprotein 4.8 JEFF Screen NEGATIVE Anti-Mitochondrial Ab NEGATIVE Anti-Smooth Muscle Ab <20 Hepatitis A IgM Ab Nonreactive Hep Bs Antigen Negative Hep Bs Antibody REACTIVE Hep B Core Total Ab Reactive Hepatitis C Ab (EIA) Reactive H HCV RNA Genotype LiPA 1b HCV RNA (PCR) IUs/ml [id number] H HCV RNA PCR log IUs/ml 6.50 H HIV 1&2 Ab/P24 Ag 4thGn Nonreactive TB Test (T-Spot) Com Negative ULTRASOUND OF THE ABDOMEN ELASTOGRAPHY . 07/22/23 . (F3) FINDINGS: PANCREAS: Normal. ABDOMINAL AORTA: The proximal, middle aortic segments are normal in caliber. Distal abdominal aorta not well visualized due to bowel gas. INFERIOR VENA CAVA: Visualized portions are normal. LIVER: Echotexture is slightly increased and heterogeneous. The liver is normal in contour. The left lobe is enlarged. No focal lesion or intrahepatic biliary duct dilatation. The right lobe measures 12 cm in length. The left lobe measures 13 cm in length. Portal flow is normal/hepatopedal Shear wave liver elastography median stiffness is 2.2 m/s (reference: normal median stiffness is 1.3 m/s or less). Previous 1.97 m/s. IQR/median stiffness to assess sampling precision is 0.16 (reference: good quality data set is IQR/median stiffness of 0.15 or less). GALLBLADDER: two stable small polyps largest measuring 3 mm. The gallbladder is otherwise normal. No definite stones. COMMON BILE DUCT: Normal in caliber measuring 0.4 cm in diameter. RIGHT KIDNEY: Normal. No hydronephrosis. No renal calculi or focal parenchymal lesions. The kidney measures 11 cm in maximum dimension. LEFT KIDNEY: Normal. No hydronephrosis. No renal calculi or focal parenchymal lesions. The kidney measures 12 cm in maximum dimension. SPLEEN: The spleen is enlarged. The spleen measures 15 cm in maximum dimension. FREE FLUID: None. US/US abdomen comp w elastography IMPRESSION: 1. Impression: Slightly echogenic heterogeneous appearing liver. Enlarged spleen. Stable small gallbladder wall polyps. 2. Liver elastography: Slightly limited due to sampling error. Increased liver stiffness suggestive of compensated advanced chronic liver disease. Code(s): B19.20 - Unspecified viral hepatitis C without hepatic coma (2) Hepatitis B core antibody positive: Code(s): R76.8 - Other specified abnormal immunological findings in serum Plan He continues to feel well without any signs or symptoms of overt liver disease. We review all of the labs and he does have hepatitis C genotype 1 B that has failed PEG interferon treatment and Epclusa. At this point we will progress him to [facility]. He was unaware that he also had a [place] hepatitis-B infection and I educate him about this because of the importance of watching for possible reactivation. I explained to him that his body fought the initial infection off and he is not carrying any viral load so he cannot transmitted this infection but it is important that he keep his appointments for his lab follow-ups we can make sure we do not complicate his cure possibility. He is aware that he still contends med hepatitis C since he does carry an active viral load. He avoids repeat risky behaviors and he is aware of the behaviors he should avoid to limit transmission to anyone else. At this point we need to do a prior approval for the medication and he is aware that he should call us before he starts treatment so that we can set up his lab in follow-up date. Return office visit to be determined. Coding Level of Care Code Est Pt Level 3 (64987) Diagnoses Hepatitis C B19.20 Hepatitis B core antibody positive R76.8
== END 2023-08-23 09:24 | disposition home or self-care (01) ==
PROVIDERS: PCP Internal Medicine; Visit Provider Nurse Practitioner
DX: B19.20 Unspecified viral hepatitis C without hepatic coma (principal); R76.8 Other specified abnormal immunological findings in serum
CPT/HCPCS: 99213

== ENCOUNTER → 2023-08-23 08:36 | Outpatient (BNVA) | payer MEDICARE, SELFPAY | PROVIDERS: PCP Internal Medicine; Visit Provider Nurse Practitioner | DX: B19.20 Unspecified viral hepatitis C without hepatic coma (principal); R76.8 Other specified abnormal immunological findings in serum | CPT/HCPCS: 99212 ==

== ENCOUNTER 2024-01-29 13:26 | Emergency (ER) | payer MEDICARE, SELFPAY ==
--- NOTE | ~2024-01-29 | CT_ITS ---
EXAMINATION: US VENOUS ULTRASOUND WITH DOPPLER LOWER EXTREMITY, BILATERAL CLINICAL INFORMATION: Bilateral lower extremity swelling. COMPARISON: 06/12/2020. TECHNIQUE: Ultrasound of the deep veins is performed from the hip to the calf with compression sonography and color and pulse Doppler assessment. Spectral analysis with color-flow imaging is performed. FINDINGS: RIGHT: There is normal venous compression and respiratory variation and augmented flow. The visualized common femoral vein, superficial femoral vein, profunda femoral vein, popliteal vein, and the trifurcation region shows no evidence of deep venous thrombosis. There is no significant popliteal fossa cyst. LEFT: There is normal venous compression and respiratory variation and augmented flow. The visualized common femoral vein, superficial femoral vein, profunda femoral vein, popliteal vein, and the trifurcation region shows no evidence of deep venous thrombosis. There is no significant popliteal fossa cyst. If the patient's symptoms persist, followup ultrasound in 5 days 7 days might be of value to exclude proximal propagation from a non-visualized calf vein. CT/CT abdomen pelvis w IV con IMPRESSION: No DVT demonstrated in the bilateral lower extremities.
[2024-01-29 13:55] VITALS: BP 177/82; PULSE 57; RESP 16; TEMP 37.1; O2SAT 98; BMI 25.3
--- NOTE | 2024-01-29 13:55 | ED.GENADULT ---
HPI - General Adult General Chief complaint: General Medical Stated complaint: Numbness/tingling in legs/arms Time Seen by Provider: 01/29/24 20:56 Source: patient Mode of arrival: ambulatory Limitations: no limitations History of Present Illness ED Provider: Dr. Deric Harris HPI narrative: 63-year-old male with a history of hepatitis-C, hypertension who presents emergency department for evaluation of dull, constant abdominal pain with a bloated sensation x1 week, bilateral lower extremity swelling x1 month with left greater than right and bilateral lower extremity numbness x2 weeks with left upper extremity numbness starting this morning. Patient states that all of these symptoms are new and he has never had them before in the past. The patient did have varicose veins in the left lower extremity which were treated he states that since then he was worn a compression stocking but despite wearing this he still has had increased swelling. He denied fever, chills, chest pain, shortness of breath, dyspnea on exertion. He does have nausea but no vomiting. He states that he has 2 bowel movements per day. Patient has a history of hepatitis states that was treated in the past but was unsuccessful. He states that he has been offered a need treatment however his co-payment is $3,000 per treatment and he will need 3 treatments and he has not been able to afford his co-pay.. Related Data Home Medications ?Medication ?Instructions ?Recorded ?Confirmed blood pressure test kit-large #1 ea 06/26/20 fluticasone propionate 50 1 spray intranasal BID 08/10/21 mcg/actuation nasal spray,suspension losartan 50 mg-hydrochlorothiazide 1 tab PO DAILY 08/10/21 12.5 mg tablet sildenafil 100 mg tablet mg PO 08/10/21 tamsulosin 0.4 mg capsule 0.4 mg PO DAILY 08/23/23 Previous Rx's ?Medication ?Instructions ?Recorded sofosbuvir 400 mg-velpatasvir 100 1 tab PO DAILY 30 days #30 tabs 09/13/23 mg-voxilaprevir 100 mg tablet (Vosevi) furosemide 40 mg tablet (Lasix) 40 mg PO DAILY #60 tabs 01/30/24 Allergies Allergy/AdvReac Type Severity Reaction Status Date / Time No Known Drug Allergies Allergy Unknown none Verified 01/29/24 13:57 SEASONAL ALLERGIES Allergy Unknown UNKNOWN Uncoded 01/29/24 13:57 Review of Systems Review of Systems: Yes all other systems are reviewed and are negative [facility] Past Medical History [facility] Narrative: Social history: He denies tobacco, alcohol and drug use. Medical History Hepatitis Hyperglycemia Complications affecting other specified body systems, hypertension Surgical History History of colonoscopy Mass of ureter Family History Family History Father No problems noted. Mother Family history of high blood pressure Social History Social History Alcohol intake: never Patient Tobacco Use Status: Never used Tobacco Advance Directives: No Advance Directives Information Provided: Yes Advance Directives Date on File: 06/12/20 Physical Exam ED Vital Signs: Vital Signs - 24 hr 01/29/24 13:55 01/29/24 20:28 01/29/24 22:53 Temperature 98.8 F 97.9 F Pulse Rate 57 54 50 Respiratory Rate 16 16 16 Blood Pressure 177/82 H 157/75 H 150/81 H Pulse Oximetry 98 99 96 Oxygen Delivery Method Room Air Room Air Room Air 01/29/24 23:59 01/30/24 00:13 Temperature 98.1 F 98.1 F Pulse Rate 56 56 Respiratory Rate 16 16 Blood Pressure 144/81 H 144/81 H Pulse Oximetry 98 98 Oxygen Delivery Method Room Air Room Air BMI result Body Mass Index 25.3 Vital signs revealed an elevated blood pressure of 177/86. Exam: General: Awake, alert in no distress Head: Normocephalic, atraumatic EENT: PERRL, Lids normal, sclera normal, conjunctiva normal, nose normal , ears normal, throat without erythema or exudates Neck: Supple, no adenopathy Lung: breath sounds symmetric, no wheezing, rales or rhonchi Chest: symmetric movement, nontender Heart: regular rate and rhythm, normal S1, S2 no murmurs or rubs Abdomen: Mildly distended, normoactive bowel sounds, mild diffuse tenderness with no localizing tenderness, no rebound, no voluntary or involuntary guarding Back: no vertebral tenderness, no CVAT Extremities: Patient has ecchymosis to the left knee area which she stated since due to a recent injury, patient does have varicose veins to the left lower extremity with +pitting edema, left lower extremity appears to be larger than the right lower extremity and he has 1+ pitting edema in the right lower Neuro: Awake, alert, oriented, normal speech, cranial nerves intact, moves all extremities symmetrically Psych: Pleasant, cooperative Course Course Course Narrative: RME- 63 year old male presents for evaluation of abdominal pain, nausea over the last week. He also endorses feeling numbness in both his arms and legs. Plan for cardiac workup. Medications Administered Discontinued Medications Generic Name Dose Route Start Last Admin Trade Name Freq PRN Reason Stop Dose Admin Iohexol 100 ml 01/29/24 22:20 01/29/24 22:20 Iohexol 350 Mg/Ml 100 Ml Infus..Btl IV 01/29/24 22:21 85 ml ONCE ONE Administration Medical Decision Making Medical Decision Making [facility] Narrative: 63-year-old male with a history of hepatitis-C, hypertension who presents emergency department for evaluation of dull, constant abdominal pain with a bloated sensation x1 week, bilateral lower extremity swelling x1 month with left greater than right and bilateral lower extremity numbness x2 weeks with left upper extremity numbness starting this morning. Vital signs did reveal an elevated blood pressure otherwise unremarkable. Physical examination did reveal mildly distended abdomen with diffuse tenderness and no localizing tenderness. Patient has 1+ pitting edema to his lower extremities left greater than right with varicose veins to the left lower extremities. Patient's neurologic exam was nonfocal. Differential diagnosis: ?Includes but is not limited to peripheral edema, cirrhosis secondary to hepatitis-C, ascites, bowel obstruction, bilateral DVT, myocardial infarction, myocardial ischemia, cardiomegaly, B12 and folate deficiency, hypothyroidism Following evaluation was ordered:CBC, CMP, lipase, magnesium, PT/INR, PTT, troponin, TSH, B12 and folate, EKG, CT scan of the abdomen pelvis with IV contrast, bilateral duplex ultrasound lower extremities. Course: My interpretation patient's laboratory evaluation is as follows: WBC low 4100, platelet count low 108,000-this is chronic most likely secondary to hepatitis-C Elevated BUN of 25 with a normal creatinine of 1.09. Elevated glucose 156. AST and ALT were elevated 135 and 247-chronic secondary to hepatitis-C. High sensitive troponin I was detectable but not elevated at 5.0. Lipase was normal. TSH was normal. Duplex ultrasound revealed no DVT. CT scan of the abdomen pelvis with IV contrast revealed cirrhotic appearing liver and splenomegaly. At this time I believe that the patient's peripheral edema is related to his liver disease. The patient was treated with Lasix 40 mg once a day for few weeks. 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 Admission/Observation Consideration of admission/observation: Escalation of care including admission/observation considered Lab Data MDM Lab Attestation statement: I reviewed the patient's lab results. 01/29/24 14:24 01/29/24 14:24 Labs: Lab Results 01/29/24 Range/Units 14:24 WBC 4.1 L (4.8-10.8) X10*3/uL RBC 4.56 L (4.60-5.80) X10*6/uL Hgb 14.3 (14.0-18.0) g/dl Hct 40.1 L (42.0-52.0) % MCV 87.9 (80.0-98.0) fL MCH 31.4 (27.0-33.0) pg MCHC 35.7 (31.0-36.0) g/dl RDW 11.7 (11.0-16.0) % Plt Count 108 L (160-400) X10*3/uL MPV 10.7 (9.4-12.4) fL Immature Gran % (Auto) 0.5 H (0.0-0.4) % Neut % (Auto) 54.8 (45-73) % Lymph % (Auto) 28.2 (20-40) % [place] % (Auto) 13.1 H (2-11) % Eos % (Auto) 2.7 (0-4) % Baso % (Auto) 0.7 (0-2) % Lymph # (Auto) 1.2 (1.2-4.9) X10*3/uL [place] # (Auto) 0.5 (0.1-1.2) X10*3/uL Eos # (Auto) 0.1 (0.0-0.4) X10*3/uL Baso # (Auto) 0.0 (0.0-0.2) X10*3/uL Abs Immat Gran (auto) 0.02 (0.00-0.03) X10*3/uL Absolute Neuts (auto) 2.3 (2.0-8.3) x10*3/uL Absolute Nucleated RBC 0.000 (0.0-0.012) X10*3/uL Nucleated RBC % (auto) 0.0 (0.0-0.2) /100WBC PT 11.8 (11.1-13.3) SEC INR 1.0 (0.9-1.1) Sodium 138 (135-145) mmol/L Potassium 3.7 (3.3-5.1) mmol/L Chloride 104 (96-108) mmol/L Carbon Dioxide 26 (22-29) mmol/L Anion Gap 12 (12-20) BUN 25 H (9-16) mg/dL Creatinine 1.09 (0.5-1.4) mg/dL Estim Creat Clear Calc 69.7 Estimated GFR > 60 Random Glucose 156 H (60-115) mg/dL Calcium 8.9 (8.4-10.2) mg/dL Magnesium 1.9 (1.6-2.6) mg/dL Total Bilirubin 0.7 (0.0-1.0) mg/dL AST 135 H (5-37) U/L ALT 247 H (0-40) U/L Alkaline Phosphatase 92 (39-117) U/L Troponin I High Sens 5.0 (<3.5-35.0) ng/L Total Protein 7.1 (6.5-8.0) g/dL Albumin 3.8 (3.5-5.0) g/dL Lipase 37 (8-78) U/L TSH 0.79 (0.32-4.0) uIU/mL Independent Interpretation I performed an independent interpretation of an: EKG Interpretation: My interpretation the patient's 12 EKG done at 14:15 hours is as follows: Sinus bradycardia with a rate of 50 200 and 6 milliseconds, normal QRS duration and QTC interval, no ST segment elevation, no ST segment depression, nonspecific T-wave abnormalities, compared to EKG dated 02/25/2020 there has no significant difference. Radiology Impression Discussion of test interpretation with radiology: I have reviewed the radiologist's reading. Radiologist Impression: US venous duplex LE BI IMPRESSION: No DVT demonstrated in the bilateral lower extremities. Dictated By: Madi Pollock EXAMINATION: CT ABDOMEN AND PELVIS WITH CONTRAST CLINICAL INFORMATION: Abdominal pain.. COMPARISON: None available. FINDINGS: VISUALIZED CHEST: Visualized lung bases and mediastinum are normal. No pleural effusion. LIVER, GALLBLADDER, AND BILIARY TREE: The liver is irregular in contour. No focal liver lesions are seen. There is no intrahepatic biliary duct dilatation. The gallbladder is normal in appearance. PANCREAS: Normal; no mass or surrounding fluid. SPLEEN: The spleen is enlarged measuring up to 16 cm. ADRENAL GLANDS: Normal; no mass. KIDNEYS AND URETERS: The kidneys are normal in size, shape, and attenuation. No hydronephrosis, hydroureter, or calculi. GASTROINTESTINAL TRACT: Stomach and small bowel non-dilated. No colonic wall thickening or pericolonic inflammatory changes. The appendix is visualized and is within normal limits. ABDOMINAL WALL: There is a small umbilical hernia containing fat. LYMPHOVASCULAR STRUCTURES: No lymphadenopathy. The aorta is normal in caliber. BLADDER: No focal mass or wall thickening seen. No bladder calculi. PELVIC VISCERA: There is mild prostate gland hypertrophy. OSSEOUS STRUCTURES: There is diffuse moderate lumbar disc degenerative change. IMPRESSION: Cirrhotic-appearing liver and splenomegaly. No acute findings Discharge Plan Discharge Clinical Impression: Edema, peripheral, Transaminitis Patient Disposition: Home, Self-Care Additional Instructions: You had a low white blood cell count, platelet count and elevated liver tests. This is consistent with your hepatitis-C and you had similar changes in your blood work in the past. On your examination you have fluid in your lower extremities, this is called peripheral edema. The duplex ultrasound test of your legs revealed no blood clots I am starting you on a water pill (diuretic) called Lasix (furosemide) 40 mg once a day for 2 weeks. While your on this water pill I want you to only drink fluid when you were thirsty. The idea is to get you into a negative fluid balance where your paying out more fluid than your drinking. You can stop the furosemide early if the fluid in your legs goes away Follow-up with your doctor in 2 days. Please return to the emergency department if your symptoms get worse or if you develop any symptoms that are concerning to you. Prescriptions: New furosemide [Lasix] 40 mg tablet 40 mg PO DAILY Qty: 60 0RF No Action Vosevi 400-100-100 mg tablet 1 tab PO DAILY 30 Days Qty: 30 3RF Rx Instructions: must administer with a meal/food (DME) blood pressure test kit-large Kit See Rx Instructions .ROUTE .MEDSUPPLY Qty: 1 Rx Instructions: As directed fluticasone propionate 50 mcg/actuation spray,suspension 1 spray intranasal BID losartan-hydrochlorothiazide 50-12.5 mg tablet 1 tab PO DAILY sildenafil 100 mg tablet PO tamsulosin 0.4 mg capsule 0.4 mg PO DAILY Interventions: ED Discharge Assessment Last Done: 01/30/24 00:13 Discharge Date/Time: 01/30/24 00:14 Print Language: Senegalese
--- NOTE | 2024-01-29 13:56 | ECG_ITS ---
Test Reason : PAIN Blood Pressure : / mmHG Vent. Rate : 058 BPM Atrial Rate : 058 BPM P-R Int : 206 ms QRS Dur : 096 ms QT Int : 452 ms P-R-T Axes : 000 -03 -12 degrees QTc Int : 443 ms Ectopic atrial rhythm Nonspecific ST and T wave abnormality Abnormal ECG When compared with ECG of 25-FEB-2020 09:48, ectopic atrial rhythm present Referred By: César Mata Electronically Signed By:Dheeraj Sales
[2024-01-29 14:31] LABS: MANUAL DIFF FLAG NO
[2024-01-29 14:33] LABS: Basophils Percent Auto 0.7 % (0-2); Eosinophils Absolute Auto 0.1 X10*3/uL (0.0-0.4); Eosinophils Percent Auto 2.7 % (0-4); Hematocrit 40.1 % (42.0-52.0); Hemoglobin 14.3 g/dl (14.0-18.0); Imm Gran Abs Auto 0.02 X10*3/uL (0.00-0.03); Imm Gran Pct Auto 0.5 % (0.0-0.4); Lymphocytes Absolute Auto 1.2 X10*3/uL (1.2-4.9); Lymphocytes Percent Auto 28.2 % (20-40); Mean Corpuscular HGB Conc 35.7 g/dl (31.0-36.0); Mean Corpuscular Hemoglobin 31.4 pg (27.0-33.0); Mean Corpuscular Volume 87.9 fL (80.0-98.0); Mean Platelet Volume 10.7 fL (9.4-12.4); Monocytes Absolute Auto 0.5 X10*3/uL (0.1-1.2); Monocytes Percent Auto 13.1 % (2-11); Neutrophils Absolute Auto 2.3 x10*3/uL (2.0-8.3); Neutrophils Percent Auto 54.8 % (45-73); Platelet Count 108 X10*3/uL (160-400); Red Blood Count 4.56 X10*6/uL (4.60-5.80); Red Cell Distribution Width 11.7 % (11.0-16.0); White Blood Count 4.1 X10*3/uL (4.8-10.8)
[2024-01-29 14:38] LABS: Prothrombin Time 11.8 SEC (11.1-13.3)
[2024-01-29 14:54] LABS: Alanine Aminotransferase 247 U/L (0-40); Albumin Level 3.8 g/dL (3.5-5.0); Alkaline Phosphatase 92 U/L (39-117); Anion Gap 12 (12-20); Aspartate Amino Transferase 135 U/L (5-37); Bilirubin Total 0.7 mg/dL (0.0-1.0); Blood Urea Nitrogen 25 mg/dL (9-16); Calcium 8.9 mg/dL (8.4-10.2); Carbon Dioxide 26 mmol/L (22-29); Chloride 104 mmol/L (96-108); Creatinine Clr Calc Pharmacy 69.7; Estimated Glomerular Filt Rate > 60; Glucose Random 156 mg/dL (60-115); Lipase 37 U/L (8-78); Magnesium 1.9 mg/dL (1.6-2.6); Potassium 3.7 mmol/L (3.3-5.1); Sodium 138 mmol/L (135-145); Total Protein 7.1 g/dL (6.5-8.0)
[2024-01-29 15:09] LABS: TSH reflex Free T4 0.79 uIU/mL (0.32-4.0)
[2024-01-29 20:28] VITALS: BP 157/75; PULSE 54; RESP 16; TEMP 36.6; O2SAT 99
[2024-01-29] MEDS: iohexoL 350 MG/ML 100 ML INFUS..BTL IV (22:20)
[2024-01-29 22:53] VITALS: BP 150/81; PULSE 50; RESP 16; O2SAT 96
[2024-01-29 23:59] VITALS: BP 144/81; PULSE 56; RESP 16; TEMP 36.7; O2SAT 98
[2024-01-30 00:13] VITALS: BP 144/81; PULSE 56; RESP 16; TEMP 36.7; O2SAT 98
== END 2024-01-30 00:14 | disposition home or self-care (01) ==
PROVIDERS: Physician Assistant; Emergency Provider Emergency Medicine Emergency Medical Services; PCP Internal Medicine
DX: R60.0 Localized edema (principal); R74.01 Elevation of levels of liver transaminase levels; R10.9 Unspecified abdominal pain; I10 Essential (primary) hypertension
CPT/HCPCS: 36415; 74177; 80053; 83690; 83735; 84443; 84484; 85025; 85610; 93005; 93970; 99284; Q9967

== ENCOUNTER → 2024-01-29 13:56 | Outpatient (BNV) | payer MEDICARE, SELFPAY | PROVIDERS: Emergency Provider Emergency Medicine Emergency Medical Services; PCP Internal Medicine; Visit Provider Internal Medicine Cardiovascular Disease | DX: R94.31 Abnormal electrocardiogram [ECG] [EKG] (principal) | CPT/HCPCS: 93010 ==

== ENCOUNTER 2024-02-09 14:47 | Outpatient (REF) | payer MEDICARE, SELFPAY ==
[2024-02-09 15:13] LABS: Ammonia 41 umol/L (13-55)
[2024-02-09 16:24] LABS: Partial Thromboplastin Time 28.4 SEC (26.0-36.8)
[2024-02-09 16:34] LABS: Anion Gap 10 (12-20); Blood Urea Nitrogen 25 mg/dL (9-16); Calcium 9.6 mg/dL (8.4-10.2); Carbon Dioxide 27 mmol/L (22-29); Chloride 105 mmol/L (96-108); Estimated Glomerular Filt Rate > 60; Glucose Random 107 mg/dL (60-115); Potassium 3.7 mmol/L (3.3-5.1); Sodium 138 mmol/L (135-145)
[2024-02-11 15:34] LABS: HCV Log PCR 6.63 Log IU/mL (NOT DETECTED); HepC Viral Load 4280000 IU/mL (NOT DETECTED)
[2024-02-13 15:04] LABS: Alpha Fetoprotein 4.9 ng/mL (<6.1)
[2024-02-14 07:03] LABS: Hepatitis C Genotype 1b
== END 2024-02-09 14:48 | disposition home or self-care (01) ==
LOC: HO.LAB 14:47
PROVIDERS: Nurse Practitioner; PCP Internal Medicine; Visit Provider Internal Medicine
DX: B19.20 Unspecified viral hepatitis C without hepatic coma (principal); R74.01 Elevation of levels of liver transaminase levels; B18.2 Chronic viral hepatitis C; K74.69 Other cirrhosis of liver
CPT/HCPCS: 36415; 80048; 82105; 82140; 85730; 87522; 87902

== ENCOUNTER 2024-02-17 12:14 | Outpatient (AMB) | payer MEDICARE, SELFPAY ==
--- NOTE | 2024-02-17 12:25 | MHC.OFFVIS ---
Vital Signs 02/17/24 12:33 Height 5 ft 9 in Weight 168 lb BMI 24.8 BP 115/56 L Blood Pressure Location Lt brachial Position Sitting Pulse 66 Intake Visit Reasons: ED f/u Cirrhotic Appearing Liver, Splenomegaly Intake Note: Patient follow up ED f/u Cirrhosis on liver, Splenomegaly Patient cc: abdominal pain with bloating on and off and some swallowing difficulty. 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 Accompanied by: Self / Same As Patient Allergies No Known Drug Allergies Allergy (Unknown, Verified 02/17/24 12:34) none SEASONAL ALLERGIES Allergy (Unknown, Uncoded 01/29/24 13:57) UNKNOWN HPI HPI ED f/u Cirrhotic Appearing Liver, Splenomegaly: Details: Assessment & Plan (1) Hepatitis C: Comment: In the past was treated by [facility] but recently failed to have a sustained viral clearance status post Epclusa and was referred to our services Laboratory Tests 06/22/23 09:21 WBC 4.3 L Hgb 14.9 Hct 42.5 Plt Count 116 L Estimated GFR > 60 Ferritin 253 H Total Bilirubin 1.0 AST 114 H ALT 196 H Alkaline Phosphatase 99 Liver GGT 47 Liver Fibrosis Stage F4 Alpha Fetoprotein 4.8 JEFF Screen NEGATIVE Anti-Mitochondrial Ab NEGATIVE Anti-Smooth Muscle Ab <20 Hepatitis A IgM Ab Nonreactive Hep Bs Antigen Negative Hep Bs Antibody REACTIVE Hep B Core Total Ab Reactive Hepatitis C Ab (EIA) Reactive H HCV RNA Genotype LiPA 1b HCV RNA (PCR) IUs/ml [id number] H HCV RNA PCR log IUs/ml 6.50 H HIV 1&2 Ab/P24 Ag 4thGn Nonreactive TB Test (T-Spot) Com Negative ULTRASOUND OF THE ABDOMEN ELASTOGRAPHY . 07/22/23 . (F3) FINDINGS: PANCREAS: Normal. ABDOMINAL AORTA: The proximal, middle aortic segments are normal in caliber. Distal abdominal aorta not well visualized due to bowel gas. INFERIOR VENA CAVA: Visualized portions are normal. LIVER: Echotexture is slightly increased and heterogeneous. The liver is normal in contour. The left lobe is enlarged. No focal lesion or intrahepatic biliary duct dilatation. The right lobe measures 12 cm in length. The left lobe measures 13 cm in length. Portal flow is normal/hepatopedal Shear wave liver elastography median stiffness is 2.2 m/s (reference: normal median stiffness is 1.3 m/s or less). Previous 1.97 m/s. IQR/median stiffness to assess sampling precision is 0.16 (reference: good quality data set is IQR/median stiffness of 0.15 or less). GALLBLADDER: two stable small polyps largest measuring 3 mm. The gallbladder is otherwise normal. No definite stones. COMMON BILE DUCT: Normal in caliber measuring 0.4 cm in diameter. RIGHT KIDNEY: Normal. No hydronephrosis. No renal calculi or focal parenchymal lesions. The kidney measures 11 cm in maximum dimension. LEFT KIDNEY: Normal. No hydronephrosis. No renal calculi or focal parenchymal lesions. The kidney measures 12 cm in maximum dimension. SPLEEN: The spleen is enlarged. The spleen measures 15 cm in maximum dimension. FREE FLUID: None. US/US abdomen comp w elastography IMPRESSION: 1. Impression: Slightly echogenic heterogeneous appearing liver. Enlarged spleen. Stable small gallbladder wall polyps. 2. Liver elastography: Slightly limited due to sampling error. Increased liver stiffness suggestive of compensated advanced chronic liver disease. Code(s): B19.20 - Unspecified viral hepatitis C without hepatic coma (2) Hepatitis B core antibody positive: Code(s): R76.8 - Other specified abnormal immunological findings in serum Plan He continues to feel well without any signs or symptoms of overt liver disease. We review all of the labs and he does have hepatitis C genotype 1 B that has failed PEG interferon treatment and Epclusa. At this point we will progress him to Vosevi. He was unaware that he also had a [place] hepatitis-B infection and I educate him about this because of the importance of watching for possible reactivation. I explained to him that his body fought the initial infection off and he is not carrying any viral load so he cannot transmitted this infection but it is important that he keep his appointments for his lab follow-ups we can make sure we do not complicate his cure possibility. He is aware that he still contends med hepatitis C since he does carry an active viral load. He avoids repeat risky behaviors and he is aware of the behaviors he should avoid to limit transmission to anyone else. At this point we need to do a prior approval for the medication and he is aware that he should call us before he starts treatment so that we can set up his lab in follow-up date. Return office visit to be determined. LABS: Laboratory Tests 01/29/24 02/09/24 14:24 15:00 WBC 4.1 L RBC 4.56 L Hgb 14.3 Hct 40.1 L MCV 87.9 Plt Count 108 L Estimated GFR > 60 Total Bilirubin 0.7 AST 135 H ALT 247 H Alkaline Phosphatase 92 Alpha Fetoprotein 4.9 TSH 0.79 Hep C Viral Load [id number] H Hep C Viral Load Log 6.63 H Hepatitis C Genotype 1b CORRESPONDENCE On 02/13/24 @ 16:06 Laure Abbott Wrote To ScarDecember (2) Okay thanks On 02/13/24 @ 15:49 Radha Luna Wrote To ScarDecember so December - this is what [facility] informed me of. I last spoke to patient on that day and I advised him to call for the copay assistance. Unfortunately when I first spoke w/ patient about this he informed me that he called but they required too much info so he didn't complete it. On 01/31/24 @ 14:23 Radha Luna Wrote To Scar I spoke w/ [facility], so it seems patient denied medication back in September due to high Copay cost of $3,316.74 and he was given the copay assistance number but never followed up. I called patient and inquired further. patient states he called but did not forward at the time. I encouraged him to call copay assistance program again to get cost waived given he is on a fixed income, retired. patient states he is going to call copay assistance program: #[phone] On 01/31/24 @ 14:07 Laure Abbott Wrote To Radha Luna Laure Abbott removed from item. On 01/31/24 @ 14:06 Laure Abbott Wrote To ScarDecember (2) Ok thanks, please schedule him for follow up as he seems to have fallen through the crack in follow up for hepatitis C. (Did he ever get Vosevi and riba therapyi??). On 01/31/24 @ 13:57 Radha Luna Wrote To ScarLaure patient called and states he went to ED recently. It looks like he had some Edema and they put him on diuretics. patient states he had CT due to abdominal pain and it shows Splenomegaly, and cirrhotic appearing liver. I scheduled him for f/u but wanted to forward the message so you could review in case you want to order anything prior to hi On 01/31/24 @ 14:06 Laure Abbott Wrote To ScarDecember (2) Ok thanks, please schedule him for follow up as he seems to have fallen through the crack in follow up for hepatitis C. (Did he ever get Vosevi and riba therapyi??). On 01/31/24 @ 13:57 Radha Luna Wrote To ScarDecember patient called and states he went to ED recently. It looks like he had some Edema and they put him on diuretics. patient states he had CT due to abdominal pain and it shows Splenomegaly, and cirrhotic appearing liver. I scheduled him for f/u but wanted to forward the message so you could review in case you want to order anything prior to his appt On 09/08/23 @ 14:22 Radha Luna Wrote To Radha Luna appeal was approved, [id number], 08/23/23 TO 11/22/23 On 08/24/23 @ 08:28 Radha Luna Wrote To Radha Luna re-submitted Radha Alfonso completed item. On 08/23/23 @ 16:10 Laure Abbott Wrote To Radha Luna I am reading the literature and I believe they are mistaken, adding ribavirin is only if they have genotype 3, have already failed vosavi or Mavyret or are decompensated: see the following link: [email or web address].com/view-large/[email or web address] On 08/23/23 @ 14:48 Radha Luna Wrote To Laure Abbott per denial notice, drug needs to be used in combination w/ Ribavirin? please advise On 08/23/23 @ 10:36 Radha Luna Wrote To Radha Luna Radha Luna completed item. On 08/23/23 @ 10:36 Radha Luna Wrote To Radha Luna PA submitted via [facility]. On 08/23/23 @ 09:22 Laure Abbott Wrote To Radha Luna THis pt needs a PA for Vosevi as he has failed peg/intron/ribavirin course and Epclusa. REVIEW OF THE ER VISIT Following evaluation was ordered:CBC, CMP, lipase, magnesium, PT/INR, PTT, troponin, TSH, B12 and folate, EKG, CT scan of the abdomen pelvis with IV contrast, bilateral duplex ultrasound lower extremities. Course: My interpretation patient's laboratory evaluation is as follows: WBC low 4100, platelet count low 108,000-this is chronic most likely secondary to hepatitis-C Elevated BUN of 25 with a normal creatinine of 1.09. Elevated glucose 156. AST and ALT were elevated 135 and 247-chronic secondary to hepatitis-C. High sensitive troponin I was detectable but not elevated at 5.0. Lipase was normal. TSH was normal. Duplex ultrasound revealed no DVT. CT scan of the abdomen pelvis with IV contrast revealed cirrhotic appearing liver and splenomegaly. At this time I believe that the patient's peripheral edema is related to his liver disease. The patient was treated with Lasix 40 mg once a day for few weeks. 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 atient Disposition: Home, Self-Care Additional Instructions: You had a low white blood cell count, platelet count and elevated liver tests. This is consistent with your hepatitis-C and you had similar changes in your blood work in the past. On your examination you have fluid in your lower extremities, this is called peripheral edema. The duplex ultrasound test of your legs revealed no blood clots I am starting you on a water pill (diuretic) called Lasix (furosemide) 40 mg once a day for 2 weeks. While your on this water pill I want you to only drink fluid when you were thirsty. The idea is to get you into a negative fluid balance where your paying out more fluid than your drinking. You can stop the furosemide early if the fluid in your legs goes away Follow-up with your doctor in 2 days. Please return to the emergency department if your symptoms get worse or if you develop any symptoms that are concerning to you. Prescriptions: New furosemide [Lasix] 40 mg tablet 40 mg PO DAILY Qty: 60 0RF No Action Vosevi 400-100-100 mg tablet 1 tab PO DAILY 30 Days Qty: 30 3RF Rx Instructions: must administer with a meal/food (DME) blood pressure test kit-large Kit See Rx Instructions .ROUTE .MEDSUPPLY Qty: 1 Rx Instructions: As directed fluticasone propionate 50 mcg/actuation spray,suspension 1 spray intranasal BID losartan-hydrochlorothiazide 50-12.5 mg tablet 1 tab PO DAILY sildenafil 100 mg tablet PO tamsulosin 0.4 mg capsule 0.[address] ABDOMEN AND PELVIS 01/30/24 FINDINGS: VISUALIZED CHEST: Visualized lung bases and mediastinum are normal. No pleural effusion. LIVER, GALLBLADDER, AND BILIARY TREE: The liver is irregular in contour. No focal liver lesions are seen. There is no intrahepatic biliary duct dilatation. The gallbladder is normal in appearance. PANCREAS: Normal; no mass or surrounding fluid. SPLEEN: The spleen is enlarged measuring up to 16 cm. ADRENAL GLANDS: Normal; no mass. KIDNEYS AND URETERS: The kidneys are normal in size, shape, and attenuation. No hydronephrosis, hydroureter, or calculi. GASTROINTESTINAL TRACT: Stomach and small bowel non-dilated. No colonic wall thickening or pericolonic inflammatory changes. The appendix is visualized and is within normal limits. ABDOMINAL WALL: There is a small umbilical hernia containing fat. LYMPHOVASCULAR STRUCTURES: No lymphadenopathy. The aorta is normal in caliber. BLADDER: No focal mass or wall thickening seen. No bladder calculi. PELVIC VISCERA: There is mild prostate gland hypertrophy. OSSEOUS STRUCTURES: There is diffuse moderate lumbar disc degenerative change. IMPRESSION: Cirrhotic-appearing liver and splenomegaly. TODAY'S VISIT THIS PATIENT HAS NOT BEEN SEEN SINCE 08/23/2023 He says he is on a waiting list for his Hep C medications, ? r/t the ribaviron??? May consider referral to [facility]. In the meantime I will get an EGD as he is having dysphagia of solid foods stuck mid sternally, No HB. Will start famotidine qhs. Consider barium swallow depending on EGD - also need for varicies. Though decompensated liver - but no acsites and only one leg was swollen - no help with 3 days of lasix. Sx of N/V dizziness resolved w/o tx ? virus. ROV 6 mos. [facility] Medical History Hepatitis Hyperglycemia Complications affecting other specified body systems, hypertension Surgical History History of colonoscopy Mass of ureter Family History Father No problems noted. Mother Family history of high blood pressure Social History Alcohol intake: never Patient Tobacco Use Status: Never used Tobacco Advance Directives Date on File: 06/12/20 Review of Systems Const Denies fatigue, Denies fever(s), Denies night sweats, Denies poor appetite and Denies weight loss Eyes Details: glasses Reports requires corrective lenses ENT Reports Normal hearing present, Denies dental pain, Denies dysphagia, Denies hearing loss, Denies mouth pain, Denies odynophagia, Denies throat swelling, Denies tongue swelling and Reports other (Dentition adequate) Card Reports no additional complaints Resp Reports no additional complaints GI Details: Denies abdominal pain, Denies melena, Denies bloating, Denies hematochezia, Denies constipation, Denies GI cramping, Denies dysphagia, Denies excessive flatus, Denies early satiety, Reports heartburn, Denies diarrhea, Denies nausea, Denies odynophagia, Denies vomiting and Denies hematemesis Skin/Breast Denies pruritus, Denies lesions, Denies rash and Denies jaundice Neuro Reports Normal hearing present and Denies Abnormal speech present Endo Denies fatigue Aller/Immun Denies throat swelling and Denies tongue swelling Physical Exam Vital Signs: Last Vital Signs Pulse 66 02/17/24 12:33 BP 115/56 L 02/17/24 12:33 BMI result Body Mass Index 24.8 Const General: cooperative, no acute distress, well developed and well groomed Nutritional Appearance: average body habitus and well nourished Orientation/consciousness: oriented to person, oriented to place and oriented to time Limitations: No language barrier HEENT Head: Yes normocephalic and Yes atraumatic Eyes General: appearance normal, both eyes and all related structures Pupils: Equal, round and reactive pupils present Neck Neck: Yes normal visual inspection and Yes no lymphadenopathy Thyroid: Thyroid normal Resp Effort & Inspection: normal respiratory effort and able to speak in complete sentences Auscultation: clear to auscultation bilaterally Cardio Rate: regular rate Rhythm: regular rhythm Heart sounds: Normal, physiologic split S2 sound present Peripheral pulses: radial pulses present and posterior tibial pulses present GI Inspection: No distended and No Abdominal panniculus present Palpation (GI): Soft to palpation, nontender, no guarding, not rigid and No hepatosplenomegaly present Percussion: Yes normal to percussion Auscultation: normal bowel sounds Rectal Exam - Male: Yes deferred Skin General skin exam: no rashes or lesions noted, turgor normal, skin not dry, no jaundice, No spider nevi and no striae Rashes: no rashes Nails: normal Neuro General: oriented to person, oriented to place and oriented to time Cranial nerves: Yes Equal, round and reactive pupils present and Yes Normal hearing present Speech: No Abnormal speech present Extrem General: Yes normal to inspection, No clubbing, No cyanosis and No edema Psych Appearance: grossly normal and well kempt Mental Status: mental status grossly normal Speech and movement: Normal speech and movement present Affect: normal affect Attitude: cooperative Thought process: Normal thought process present and not confabulating Thought content: Normal thought content present Insight: Fair insight present (Psych) and Limited insight present (Psych) Judgement: Fair judgement present (Psych) and Limited judgement present (Psych) Assessment & Plan Assessment & Plan (1) Hepatitis C: Comment: In the past was treated by [facility] but recently failed to have a sustained viral clearance status post Epclusa and was referred to our services Laboratory Tests 06/22/23 09:21 WBC 4.3 L Hgb 14.9 Hct 42.5 Plt Count 116 L Estimated GFR > 60 Ferritin 253 H Total Bilirubin 1.0 AST 114 H ALT 196 H Alkaline Phosphatase 99 Liver GGT 47 Liver Fibrosis Stage F4 Alpha Fetoprotein 4.8 JEFF Screen NEGATIVE Anti-Mitochondrial Ab NEGATIVE Anti-Smooth Muscle Ab <20 Hepatitis A IgM Ab Nonreactive Hep Bs Antigen Negative Hep Bs Antibody REACTIVE Hep B Core Total Ab Reactive Hepatitis C Ab (EIA) Reactive H HCV RNA Genotype LiPA 1b HCV RNA (PCR) IUs/ml [id number] H HCV RNA PCR log IUs/ml 6.50 H HIV 1&2 Ab/P24 Ag 4thGn Nonreactive TB Test (T-Spot) Com Negative ULTRASOUND OF THE ABDOMEN ELASTOGRAPHY . 07/22/23 . (F3) FINDINGS: PANCREAS: Normal. ABDOMINAL AORTA: The proximal, middle aortic segments are normal in caliber. Distal abdominal aorta not well visualized due to bowel gas. INFERIOR VENA CAVA: Visualized portions are normal. LIVER: Echotexture is slightly increased and heterogeneous. The liver is normal in contour. The left lobe is enlarged. No focal lesion or intrahepatic biliary duct dilatation. The right lobe measures 12 cm in length. The left lobe measures 13 cm in length. Portal flow is normal/hepatopedal Shear wave liver elastography median stiffness is 2.2 m/s (reference: normal median stiffness is 1.3 m/s or less). Previous 1.97 m/s. IQR/median stiffness to assess sampling precision is 0.16 (reference: good quality data set is IQR/median stiffness of 0.15 or less). GALLBLADDER: two stable small polyps largest measuring 3 mm. The gallbladder is otherwise normal. No definite stones. COMMON BILE DUCT: Normal in caliber measuring 0.4 cm in diameter. RIGHT KIDNEY: Normal. No hydronephrosis. No renal calculi or focal parenchymal lesions. The kidney measures 11 cm in maximum dimension. LEFT KIDNEY: Normal. No hydronephrosis. No renal calculi or focal parenchymal lesions. The kidney measures 12 cm in maximum dimension. SPLEEN: The spleen is enlarged. The spleen measures 15 cm in maximum dimension. FREE FLUID: None. US/US abdomen comp w elastography IMPRESSION: 1. Impression: Slightly echogenic heterogeneous appearing liver. Enlarged spleen. Stable small gallbladder wall polyps. 2. Liver elastography: Slightly limited due to sampling error. Increased liver stiffness suggestive of compensated advanced chronic liver disease. 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 r/t the ribaviron??? May consider referral to [facility]. In the meantime I will get an EGD as he is having dysphagia of solid foods stuck mid sternally, No HB. Will start famotidine qhs. Consider barium swallow depending on EGD - also need for varicies. Though decompensated liver - but no acsites and only one leg was swollen - no help with 3 days of lasix. Sx of N/V dizziness resolved w/o tx ? virus. ROV 6 mos. Orders: Orders EGD with Vanessa - GI Use Only 02/17/24 B19.20 - Unspecified viral hepatitis C without hepatic coma, K74.69 - Other cirrhosis of liver Medications: New famotidine (Pepcid) 40 mg PO BEDTIME 30 tabs 6RF R13.10 - Dysphagia, unspecified Discontinued furosemide Discontinued Reason: Patient Completed Course 40 mg PO DAILY 60 tabs 0RF Coding Level of Care Code Est Pt Level 3 (46832) Diagnoses Hepatitis C B19.20 Hepatitis B core antibody positive R76.8 Decompensated cirrhosis related to hepatitis C virus (HCV) B19.20; K74.69 Dysphagia R13.10
[2024-02-17 12:33] VITALS: BP 115/56; PULSE 66; BMI 24.8
== END 2024-02-17 13:15 | disposition home or self-care (01) ==
PROVIDERS: PCP Internal Medicine; Visit Provider Nurse Practitioner
DX: B19.20 Unspecified viral hepatitis C without hepatic coma (principal); R76.8 Other specified abnormal immunological findings in serum; K74.69 Other cirrhosis of liver; R13.10 Dysphagia, unspecified
CPT/HCPCS: 99213

== ENCOUNTER → 2024-02-17 12:14 | Outpatient (BNVA) | payer MEDICARE, SELFPAY | PROVIDERS: PCP Internal Medicine; Visit Provider Nurse Practitioner | DX: B19.20 Unspecified viral hepatitis C without hepatic coma (principal); K74.69 Other cirrhosis of liver; R76.8 Other specified abnormal immunological findings in serum; R13.10 Dysphagia, unspecified | CPT/HCPCS: 99212 ==

== ENCOUNTER 2024-11-15 06:46 | Outpatient (REF) | payer MEDICARE, SELFPAY ==
--- OUTSIDE RECORDS SUMMARY | 2024-11-15 06:49 | XMS_ITS | Encounter Summary ---
Author Organization [employer] Address [address] [place] [address] Care Team Providers Care [facility] Name Role Phone Randi Cedeno MD Primary Care Provider + Reason for Visit * Reason Comments Pre-visit Planning SDOH unable to reach LVM Encounter Details Date Type Department Care Team ([facility] Contact Info) Description 11/02/2024 Patient Outreach [facility] [address] [place], [place] [id number] Randi Cedeno MD [address] [place] [address] Pre-visit Planning (SDOH unable to reach LVM) Social History Tobacco Use Types Packs/Day Years Used Date Smoking Tobacco: Never Smokeless Tobacco: Never Alcohol Use Standard Drinks/Week Comments Never 0 (1 standard drink = 0.6 oz pur e alcohol) Depression Answer Date Recorded Patient Health Questionnaire-9 Score 0 07/09/2024 Patient Health Questionnaire-9 Score 0 07/09/2024 Last PHQ-9: Questionnaire Data Not on file 1 09/08/2023 Housing Stability Answer Date Recorded What is your housing situation today? I have talonradha hartmann 07/09/[address] you li ve. Do you have problems with any of the following? Not on file 07/09/2024 Food Insecurity Answer Date Recorded Within the past 12 months, y ou worried that your food would run out before you got money to buy more: Never True 07/09/2024 Within the past 12 months,th e food you bought just didn't last and you didn't have enough money to get more: Never True 12/2023 Transportation Answer Date Recorded In the past 12 months, has l ack of transportation kept you from medical appts, meetings, work or from getting things needed for daily living? No 07/09/2024 Utilities Answer Date Recorded In the past 12 months, has t he electric, gas, oil or water company threatened to shut off services in your home? No 07/09/2024 Depression Answer Date Recorded Patient Health Questionnaire-2 Score 0 07/09/2024 Internet Access Answer Date Recorded Internet Access Q1 Yes 07/09/2024 Internet Access Q2 Not on file 07/09/2024 Sex and Gender Information Value Date Recorded Sex Assigned at Male 07/05/2022 10:17 AM EDT Legal Sex Male 10:17 AM EDT Gender Identity Female 07/05/2022 10:17 AM EDT Sexual Orientation Choose not to disclose 2021 10:17 AM EDT documented as of this encounter Progress Notes * Obdulia Martinez - 11/02/2024 10:20 AM EST CC Obdulia Blair placed outbound call to patient to complete pre-visit planning. No answer at this time. Patient name and were not confirmed. CC left voicemail requesting return call. Direct contactinformation provided. documented in this encounter Plan of Treatment Not on file documented as of this encounter Visit Diagnoses Not on filedocumented in this encounter Additional Health Concerns Assessment Noted Time PHQ-9 Depression Total Score: 0 07/09/20 24 1:15 PM EST documented as of this encounter Care Teams [facility] Relationship Specialty Start Date End Date Randi Cedeno MD [address] [place] [address] PCP - General Family Medicine 04/22/20 documented as of this encounter
--- OUTSIDE RECORDS SUMMARY | 2024-11-15 06:49 | XMS_ITS | Encounter Summary ---
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 Name Role Phone Randi Cedeno MD Primary Care Provider + Encounter Details Date Type Department Care Team ([facility] Contact Info) Description 08/24/2022 Orders Only [facility] [address], [place] [phone] Helga Gardiner LPN Social History Tobacco Use Types Packs/Day Years Used Date Smoking Tobacco: Never Assessed Sex and Gender Information Value Date Recorded Sex Assigned at Male 07/05/2022 10:17 AM EDT Legal Sex Male 10:17 AM EDT Gender Identity Female 07/05/2022 10:17 AM EDT Sexual Orientation Choose not to disclose 2021 10:17 AM EDT documented as of this encounter Plan of Treatment Not on file documented as of this encounter Procedures Procedure Name Priority Date/Time Associated Diagnosis Comments HIV ANTIBODY/ANTIGEN (WI DP) Routine 06/22/2023 9:21 AM EDT HCV RNA BY PCR, QN RFX GRACE Routine 06/22/2023 9:21 AM EDT T-SPOT(R).TB Routine 06/22/2023 9:21 AM EDT LIVER FIBROSIS, FIBROTEST ACTITEST PANEL Routine 06/22/2023 9:21 AM EDT HEPATITIS PANEL, GENERAL Routine 06/22/2023 9:21 AM EDT CBC WITH AUTO DIFFERENTIAL Routine 06/22/2023 9:21 AM EDT ACTIN (SMOOTH MUSCLE) ANTIBODY (IGG) Routine 06/22/2023 9:21 AM EDT ALPHA FETOPROTEIN, TUMOR MARKER Routine 06/22/2023 9:21 AM EDT MITOCHONDRIAL ANTIBODY WITH REFLEX TO TITER Routine 06/22/2023 9:21 AM EDT RANDI SCREEN, IFA, W/REFL TITER AND PATTERN Routine 06/22/2023 9:21 AM EDT FERRITIN Routine 06/22/2023 9:21 AM EDT COMPREHENSIVE METABOLIC PANEL Routine 06/22/2023 9:21 AM EDT documented in this encounter Results * (ABNORMAL) Liver Fibrosis, FibroTest-ActiTest Panel (06/22/2023 9:21 AM EDT) Liver Fibrosis Score 0.84 [facility] Liver Fibrosis Stage F4 [facility] Liver Fibrosis Interpretation SEE NOTE [facility] Comment:severe fibrosisFibro Test Score (f) Metavir Score f>=0 and f<=0.21 : F0 (no fibrosis)f>0.21 and f<=0.27 : F0-F1 (no fibrosis)f>0.27 and f<=0.31 : F1 (minimal fibrosis)f>0.31 and f<=0.48 : F1-F2 (minimal fibrosis)f>0.48 and f<=0.58 : F2 (moderate fibrosis)f>0.58 and f<=0.72 : F3 (advanced fibrosis)f>0.72 and f<=0.74 : F3-F4 (advanced fibrosis)f>0.74 and f<=1.00 : F4 (severe fibrosis) Nec Inflam Act Score 0.88 [facility] Nec Inflam Act Grade A3 [facility] Nec Inflam Act Interpretation SEE NOTE [facility] Comment:severe activityActiT est Score (a) Metavir Score a>=0 and a<=0.17 : A0 (no activity)a>0.17 and a<=0.29 : A0-A1 (no activity)a>0.29 and a<=0.36 : A1 (minimal activity)a>0.36 and a<=0.52 : A1-A2 (minimal activity)a>0.52 and a<=0.60 : A2 (significant activity)a>0.60 and a<=0.62 : A2-A3 (significant activity)a>0.62 and a<=1.00 : A3 (severe activity) HCK-Gobyd-7-Macroglo bulin 329(A) 106 - 279 mg/dL [facility] FIB-Haptoglobin 11(A) 43 - 212 mg/dL [facility] FIB-Apolipoprotein A1 198(A) 94 - 176 mg/dL [facility] FIB-Total Bilirubin 0.9 0.2 - 1.2 mg/dL [facility] FIB-GGT 47 3 - 70 U/L [facility] FIB-ALT 167(A) 9 - 46 U/L [facility] Reference ID [id number] [facility] Footnote SEE NOTE [facility] Comment: The reliability of results is dependent on compliance withthe preanalytical and analytical conditions recommended byBioPredictive. The tests have to be deferred for: acutehemolysis, acute hepatitis, acute inflammation, extrahepatic cholestasis. The advice of a specialist should besought for interpretation in chronic hemolysis and Gilbert'ssyndrome. The test interpretation is not validated in livertransplant patients. Isolated extreme values of one of thecomponents should lead to caution in interpreting theresults. In case of discordance between a biopsy result katie test, it is recommended to seek the advice of aspecialist. The causes of these discordances could be due toa flaw of the test or to a flaw in the biopsy: i.e. a liverbiopsy has a 33% variability rate for one fibrosis stage.FibroTest is interpretable for chronic hepatitis B and C,alcoholic and non alcoholic steatosis. ActiTest isinterpretable for chronic hepatitis B and C.The performance characteristics have been determined by[facility]. Ithas not been cleared or approved by the U.S. Food and DrugAdministration. Performance characteristics refer to theanalytical performance of the test.[employer], [employer], the associated logo, Sharon and all associated [employer] alvarez are theregistered trademarks of [employer]. All third partymarks - (R) and (TM) - are the property of their respectiveowners. (C) [id number] [employer]. Allrights reserved.THIS TEST WAS PERFORMED AT:[facility]/Gema [id number] [address] [facility], [place] ??[phone] SHAH MD,PHD,LAUREN 06/22/2023 9:21 AM EDT 06/22/2023 9:33 AM EDT us Generic External Data Provider LAB BLOOD ORDERAB LES Final Result [facility] [address] [place] [phone] * RANDI Screen,IFA, with Reflex to Titer and Pattern (06/22/2023 9:21 AM EDT) Anti Nuclear Antibody Screen NEGATIVE NEGATIVE [facility] Comment:RANDI IFA is a first l ine screen for detecting thepresence of up to approximately 150 autoantibodies invarious autoimmune diseases. A negative RANDI IFA resultsuggests an RANDI-associated autoimmune disease is notpresent at this time, but is not definitive. If thereis high clinical suspicion for Sjogren's syndrome,testing for anti-SS-A/Ro antibody should be considered.Anti-Amy-1 antibody should be considered for clinicallysuspected inflammatory myopathies.AC-0: NegativeInternational Consensus on RANDI Patterns(https://doi.org/10.1515/lfvm-7774-4515)For additional information, please refer tohttp://education.Zoomin.com/faq/YJX755(This link is being provided for informational/educational purposes only.)THIS TEST WAS PERFORMED AT:[facility] [address] [address]LVMNQLINO MCGARRY MD RANDI Titer TNP [facility] RANDI Pattern TNP [facility] RANDI TITER 2 (REF LAB) TNP [facility] RANDI Pattern 2 TNP [facility] RANDI TITER 3 TNP [facility] RANDI PATTERN 3 TNP [facility] 06/22/2023 9:21 AM EDT 06/22/2023 9:33 AM EDT [facility] External Provider LAB BLO OD ORDERABLES Final Result Performing Organization Address [facility] Co de Phone Number [facility] [address] [place] [address] [phone] * Actin (Smooth Muscle) Antibody (IgG) (06/22/2023 9:21 AM EDT) Smooth Muscle Antibody <20 <20 U [facility] Comment:Reference Range: <20 U: Negative>or=20 U: PositiveAntibodies recognizing actin are the main componentof smooth muscle antibodies associated with auto- immune liver disease. Actin antibodies are found inapproximately 75% of patients with autoimmunehepatitis (AIH) type 1, approximately 65% of patientswith autoimmune cholangitis, approximately 30% ofpatients with primary biliary cirrhosis andapproximately 2% of healthy controls. High values areclosely correlated with AIH type 1.THIS TEST WAS PERFORMED AT:[employer]/[id number] [place] [address]APFFLCLSCOTTIE MCKENNA MD,PHD 06/22/2023 9:21 AM EDT 06/22/2023 9:33 AM EDT Generic External Data Provider LAB BLOOD ORDERAB LES Final Result Performing Organization Address [facility]/ZIP Co de Phone Number [facility] [address] [place] [address] [phone] * T-SPOT??.TB (06/22/2023 9:21 AM EDT) T Spot TB Negative Negative [facility] Comment:A negative test resu lt does not exclude the possibilityof exposure to or infection with Mycobacteriumtuberculosis (M. tuberculosis). Patients with recentexposure to TB infected individuals exhibiting anegative T-SPOT.TB result should be considered forretesting within 6 weeks or if other relevant clinicalsymptoms indicate. Results from T-SPOT.TB testing mustbe used in conjunction with each individual'sepidemiological history, current medical status,and results of other diagnostic evaluations.The T-SPOT.TB test is qualitative and results arereported as positive, borderline, or negative, giventhat the test controls perform as expected. In linewith the Centers for Disease Control and Prevention's2010 recommendation to report quantitative measurementsalongside the qualitative result, the laboratoryprovides spot counts for informational purposes only.The T-SPOT.TB test should not be interpreted as aquantitative test. TS PANEL A 0 [facility] TS PANEL B 0 [facility] Negative Control Passed [facility] Positive Control Passed [facility] Comment:For additional infor matanjali, please refer tohttp://education.Solvonics/faq/XKR073(This link is being provided for informational/educational purposes only.)THIS TEST WAS PERFORMED AT:[employer]/COLVIN [id number] [place] [address]IAVLINZSCOTTIE MCKENNA MD,PHD 06/22/2023 9:21 AM EDT 06/22/2023 9:33 AM EDT us [facility] External Provider LAB BLO OD ORDERABLES Final Result [facility] [address] [place] [phone] * (ABNORMAL) HCV RNA BY PCR, QN RFX GRACE (06/22/2023 9:21 AM EDT) [facility] HCV RNA PCR QN [id number]( A) NOT DETECTED IU/mL [facility] HCV RNA PCR QN 6.50(A) NOT DETECTED Log IU/mL [facility] HCV RNA COMMENT SEE NOTE [facility] Comment:This test was perfor med using Real-Time Polymerase ChainReaction.Reportable Range: 15 IU/mL to 100,000,000 IU/mL(1.18 Log IU/mL to 8.00 Log IU/mL).The analytical performance characteristics of this assayhave been determined by [employer]. Themodifications have not been cleared or approved by theFDA. This assay has been validated pursuant to the CLIARegulations and is used for clinical purposes.For more information on this test, go to:http://education.Solvonics/faq/QLJ48k8(This link is being provided for informational/Educational purposes only.)THIS TEST WAS PERFORMED AT:[facility] [place] [id number] MCGARRY MD HCV RNA GENOTYPE,LIPA 1b [facility] Comment:The method used in t his test is RT-PCR and reversehybridization (Line Probe) of the 5' UTR and coreregion of the HCV genome.The analytical performance characteristics of thisassay have been determined by [facility], [place], [place]. The modificationshave not been cleared or approved by the FDA. Thisassay has been validated pursuant to the CLIAregulations and is used for clinical purposes.For additional information, please refer tohttp://education.Zoomin.com/faq/HCVGenotyping(This link is being provided for informational/educational purposes only.)THIS TEST WAS PERFORMED AT:[employer]/PSYCHIATRICY[address] [place] [address]NIISGYOSCOTTIE MCKENNA MD,PHD 06/22/2023 9:21 AM EDT 06/22/2023 9:33 AM EDT us [facility] External Provider LAB BLO OD ORDERABLES Final Result [facility] [address] [place] [address] [phone] * Mitochondrial Antibody with Reflex to Titer (06/22/2023 9:21 AM EDT) Pathologist [facility] Mitochondrial Antibodies NEGATIVE NEGATIVE [facility] Comment:THIS TEST WAS PERFOR MED AT:[facility] [address] [phone] MCGARRY MD Mitochondrial Ab Titer TNP [facility] 06/22/2023 9:21 AM EDT 06/22/2023 9:33 AM EDT [facility] External Provider LAB BLO OD ORDERABLES Final Result Performing Organization Address [facility] Phone Number [facility] [address] [place] [phone] * Alpha-Fetoprotein, Tumor Marker (06/22/2023 9:21 AM EDT) [facility] Alpha Fetoprotein 4.8 <6.1 ng/mL [facility] Comment:This test was perfor med using the Jesús Coulterchemiluminescent method. Values obtained fromdifferent assay methods cannot be usedinterchangeably. AFP levels, regardless ofvalue, should not be interpreted as absoluteevidence of the presence or absence of disease.THIS TEST WAS PERFORMED AT:[facility] [address] [address]NGUBVLINO MCGARRY MD 06/22/2023 9:21 AM EDT 06/22/2023 9:33 AM EDT [facility] External Provider LAB BLO OD ORDERABLES Final Result Performing Organization Address [facility] Co de Phone Number [facility] [address] [place] [phone] * HIV Ab/Ag (DUSTIN FELICIANO) (06/22/2023 9:21 AM EDT) HIV AB/AG Nonreactive Nonreactive [facility] Comment:HIV-1 p24 Ag and/or HIV-1/HIV-2 Ab not detected.A test result that is nonreactive does not exclude thepossibility of exposure to or infection with HIV-1 and/orHIV-2. Nonreactive results in this assay for individualswith prior exposure to HIV-1 and/or HIV-2 may be due toantigen and antibody levels that are below the limit ofdetection of this assay.The [employer] HIV Ag/Ab Combo assay result andsupplemental assay results should be interpreted inconjunction with the patient's clinical presentation,history and other laboratory results. If the results areinconsistent with clinical evidence, additional testing issuggested to confirm the result. 06/22/2023 9:21 AM EDT 06/22/2023 9:33 AM EDT [facility] External Data Provider LAB BLOOD ORDERAB LES Final Result Performing Organization Address [facility] de Phone Number [facility] [address] [place] [phone] * (ABNORMAL) Hepatitis Panel, General (06/22/2023 9:21 AM EDT) Pathologist [facility] Hepatitis A IgM Nonreactive Nonreactive [facility] Comment:IgM antibodies to LIM V not detected; does not exclude earlyacute or recovered HAV infection. ~Hepatitis B Surface Antibody REACTIVE Nonreactive [facility] Comment:REACTIVE: > 11.99 mI U/mL Hepatitis B Core Antibody Reactive Nonreactive [facility] Comment:Presumptive evidence of anti-HBc. Hepatitis C Antibody Reactive(A) Nonreactive [facility] Comment:Presumptive evidence of antibodies to HCV. Hepatitis B Surface Ag Negative Negative [facility] 06/22/2023 9:21 AM EDT 06/22/2023 9:33 AM EDT [facility] External Provider LAB BLO OD ORDERABLES Final Result Performing Organization Address [facility] Co de Phone Number [facility] [address] [place] [address] [phone] * (ABNORMAL) Ferritin (06/22/2023 9:21 AM EDT) Ferritin 253(H) 20 - 250 ng/mL [facility] 06/22/2023 9:21 AM EDT 06/22/2023 9:33 AM EDT us Generic External Data Provider LAB BLOOD ORDERAB LES Final Result [facility] [address] [place] [address] [phone] * (ABNORMAL) Comprehensive Metabolic Panel (06/22/2023 9:21 AM EDT) Pathologist [facility] Sodium 136 135 - 145 mmol/L [facility] Potassium 4.1 3.3 - 5.1 mmol/L [facility] Chloride 104 96 - 108 mmol/L [facility] Carbon Dioxide 23 22 - 29 mmol/L [facility] Anion Gap 13 12 - 20 [facility] Urea Nitrogen (BUN) 26(H) 9 - 16 mg/dL [facility] Creatinine, Serum 0.88 0.5 - 1.4 mg/dL [facility] Estimated Glomerular Filt Rate >60 [facility] Comment:NOTE: For -Am erican individuals, multiply the result by 1.210.Chronic Kidney Disease: Estimated GFR < 60 mL/min/1.90q0Ehapzc Kidney Disease: Estimated GFR < 15 mL/min/1.73m2 Glucose 142(H) 60 - 115 mg/dL [facility] Calcium 9.2 8.4 - 10.2 mg/dL [facility] Bilirubin, Total 1.0 0.0 - 1.0 mg/dL [facility] Aspartate Amino Transferase 114(H) 5 - 37 U/L [facility] Alanine Aminotransferase 196(H) 0 - 40 U/L [facility] Total Protein 7.1 6.5 - 8.0 g/dL [facility] Albumin Level 3.8 3.5 - 5.0 g/dL [facility] Alkaline Phosphatase 99 39 - 117 U/L [facility] 06/22/2023 9:21 AM EDT 06/22/2023 9:33 AM EDT us [facility] External Provider LAB BLO OD ORDERABLES Final Result [facility] [address] [place] [phone] [phone] * (ABNORMAL) CBC auto differential (06/22/2023 9:21 AM EDT) White Blood Count 4.3(L) 4.8 - 10.8 X10*3/uL [facility] Red Blood Count 4.73 4.60 - 5.80 X10*6/uL [facility] Hemoglobin 14.9 14.0 - 18.0 g/dl [facility] Hematocrit 42.5 42.0 - 52.0 % [facility] Mean Corpuscular Volume 89.9 80.0 - 98.0 fL [facility] Mean Corpuscular Hemoglobin 31.5 27.0 - 33.0 pg [facility] Mean Corpuscular HGB Conc 35.1 31.0 - 36.0 g/dl [facility] Red Cell Distribution Width 11.8 11.0 - 16.0 % [facility] Platelet Count 116(L) 160 - 400 X10*3/uL [facility] Mean Platelet Volume 10.8 9.4 - 12.4 fL [facility] Neutrophils Percent Auto 61.1 45 - 73 % [facility] Imm Gran Pct Auto 0.2 0.0 - 0.4 % [facility] Lymphocytes Percent Auto 22.4 20 - 40 % [facility] Monocytes Percent Auto 13.5(H) 2 - 11 % [facility] Eosinophils Percent Auto 2.3 0 - 4 % [facility] Basophils Percent Auto 0.5 0 - 2 % [facility] NRBC Pct Auto 0.0 0.0 - 0.2 /100WBC [facility] Neutrophils Absolute Auto 2.6 2.0 - 8.3 x10*3/uL [facility] Imm Gran Abs Auto 0.01 0.00 - 0.03 X10*3/uL [facility] Lymphocytes Absolute Auto 1.0(L) 1.2 - 4.9 X10*3/uL [facility] Monocytes Absolute Auto 0.6 0.1 - 1.2 X10*3/uL [facility] Eosinophils Absolute Auto 0.1 0.0 - 0.4 X10*3/uL [facility] Basophils Absolute Auto 0.0 0.0 - 0.2 X10*3/uL [facility] NRBC Abs Auto 0.000 0.0 - 0.012 X10*3/uL [facility] 06/22/2023 9:21 AM EDT 06/22/2023 9:33 AM EDT us [facility] External Provider LAB BLO OD ORDERABLES Final Result Performing Organization Address City/State/[facility] Co de Phone Number [facility] [address] [place] [phone] documented in this encounter Visit Diagnoses Not on filedocumented in this encounter Care Teams Marine Plumber Relationship Specialty Start Date End Date Randi Cedeno MD [address] [place] [phone] PCP - General Family Medicine 04/22/20 documented as of this encounter
--- OUTSIDE RECORDS SUMMARY | 2024-11-15 06:49 | XMS_ITS | Clinical Summary ---
Author Organization [employer] Address [address] [facility] [address] [place] [address] Care Team Providers Care Sugar Sampler Name Role Phone Randi Cedeno MD Primary Care Provider + Allergies Active Allergy Reactions Criticality Noted Date Comments Jey Inhibitors Cough 10/06/2021 Medications clobetasol (Temovate) 0.05 % ointmentIndica tions:Irritant contact dermatitis, unspecified trigger Apply topically 2 times daily. 30 g 04/05/20 23 Active losartan-hydro CHLOROthiazide (Hyzaar) 50-12.5 MG tabletIndicati ons:HTN (hypertension) , benign TAKE 1 TABLET BY MOUTH EVERY DAY 90 tablet 1 07/04/20 24 Active acetaminophen (Tylenol) 500 MG tablet take 1 tablet by oral route every6 -8 hours as needed not to exceed 4 tablets per 24hrs 07/28/20 22 Active oxyCODONE (Roxicodone) 5 MG immediate release tablet Take 5 mg by mouth every 6 (six) hours if needed. 08/18/20 23 Active loteprednol (Lotemax) 0.5 % ophthalmic suspension SHAKE LIQUID AND INSTILL 1 DROP IN RIGHT EYE DAILY FOR 1 WEEK. CALL IF SYMPTOMS PERSIST OR WORSEN 06/20/20 24 Active ketotifen (Zaditor) 0.025 % ophthalmic solution Administer 1 drop into affected eye(s) every 8 (eight) hours. 02/11/20 21 Active tamsulosin (Flomax) 0.4 MG 24 hr capsuleIndicat ions:Lower urinary tract symptoms (LUTS) Take 1 capsule (0.4 mg) by mouth at bedtime. 90 capsule 2 11/10/19 25 026 Active cetirizine (ZyrTEC) 10 MG tablet Take 1 tablet by mouth at bed time. 08/02/20 22 025 Discontinued(Th erapy completed) cyclobenzaprin e (Flexeril) 10 MG tablet Take 1 tablet by mouth every 12 (twelve) hours. 06/20/20 20 025 Discontinued flurbiprofen (Ansaid) 100 MG tablet Take 100 mg by mouth 2 times daily. 06/15/20 24 025 Discontinued(Th erapy completed) fluticasone (Flonase) 50 MCG/ACT nasal spray Administer 1-2 sprays into affected nostril(s) at bed time. 10/06/19 025 Discontinued tamsulosin (Flomax) 0.4 MG 24 hr capsuleIndicat ions:Lower urinary tract symptoms (LUTS) Take 1 capsule (0.4 mg) by mouth at bedtime. 90 capsule 2 07/10/20 025 Discontinued(Re order (will not trigger notification to Pharmacy)) Active Problems Problem Noted Date Diagnosed Date Lower urinary tract symptoms (LUTS) 04/05/2023 Assessment & Plan (11/09/2024 12:41 PM EST): He has BPH, doing better on Flomax. Continue Flomax nightly Assessment & Plan (07/10/2024 8:57 AM EST): It seems to be sec to BPH, improving on Flomax Continue Flomax and fu in 6m Assessment & Plan (06/21/2023 12:56 PM EDT): Most likely DPH, doing well on Flomax Cont Flomax x 1 yr and re-evaluate Assessment & Plan (04/05/2023 10:09 AM EDT): Normal PSA, symptoms might be related to BPH most likely worsened by new DM Start flomax qhs and FU with me in 1 month Irritant contact dermatitis 04/05/2023 Assessment & Plan (06/21/2023 12:56 PM EDT): Resolved Assessment & Plan (04/05/2023 10:08 AM EDT): On left arm. Use clobetasol ointment BID and reconsult prn Neck pain 04/05/2023 Assessment & Plan (06/21/2023 2:22 PM EDT): Improved but still with significant difficulty for movs, specially when doing exercise. Refer to PT Assessment & Plan (04/05/2023 10:06 AM EDT): no major evidence of muscle spasm use tylenol PRN and FU with me in 1 month, if no improvement will refer to PT and do further workup Varicose veins of lower extremity 04/01/2023 Right upper quadrant pain 04/01/2023 IFG (impaired fasting glucose) 04/01/2023 Assessment & Plan (07/10/2024 10:56 AM EST): Stable, Aic is improved. I have discussed with patient regarding increasing physicial activity and decrease calorie intake To check RBS at next visit. FU in 6m Assessment & Plan (04/05/2023 10:10 AM EDT): It has progressed to type 2 DM Will refer to dietitian diagnosis discussed with pt. Housing instability 04/01/2023 Essential hypertension 04/01/2023 Assessment & Plan (11/09/2024 12:40 PM EST): Uncontrolled today. Patient will check BP at home 3 times per week and drop BP log at the first front ventilator or send it to us via [employer]. Continue losartan HCTZ, order labs. Reminded him regarding low-salt diet, exercise. Assessment & Plan (06/21/2023 12:57 PM EDT): Controlled. Repeated was 140/82 Continue lisinopril/hctz same dose Counseled re low salt diet/increase moderate physical activity. Check home BP BIW and prn CP/LIM/BEAN Non smoking patient. Assessment & Plan (04/05/2023 10:10 AM EDT): Uncontrolled today, recheck was 160/90. Continue losartan/HCTZ 50/12.5 and fu with me in 1 month Counseled re low salt diet/increase moderate physical activity. Check home BP BIW and prn CP/LIM/BEAN Non smoking patient. Cough 04/01/2023 Cirrhosis of liver 04/01/2023 Assessment & Plan (07/10/2024 10:55 AM EST): Sec to HCV, hx IVDU/ETOH (he's abstinent now). Liver elastography on 2022 showed compensated cirrhosis. Fu LFTs yearly, for increased risk Hepatocell Ca, last AFP was 4.9, next lasb due on 02/2025 Advised to avoid ETOH/drugs, keep healthy weight and life style. Advised Izs, declined Covid vax, agreed to Influenza vax today. Chronic hepatitis C 04/01/2023 Assessment & Plan (11/09/2024 12:41 PM EST): Failed IFN and Epclusa. Followed by GI but unable to afford copayment for new treatment. He has the phone number of copayment assistance program: #[phone] , I reminded him to call and follow-up with GI for EGD, if no rx is possible bc access $$$, I will refer him to [facility]. 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 Referred to [facility] but he's unable to afford copayment for Vosevi I gave him infor re copayment assistance program: #[phone] for him to call and fu with GI on Aug. If no rx is possible bc access $$$, I will refer him to [facility]. He's Hep A/B immune (previous Hep B infection) Assessment & Plan (04/05/2023 10:09 AM EDT): Failed treatment with epclusa Will refer to GI for further treatment Acute COVID-19 04/01/2023 Vasculogenic erectile dysfunction 04/01/2023 Resolved Problems Problem Noted Date Diagnosed Date Resolved Date Type 2 diabetes mellitus wit hout complication, without long-term current use of insulin 04/05/2023 07/10/2024 Assessment & Plan (06/21/2023 12:58 PM EDT): Most likely controlled Continue lifetime modifications Counseled re more frequent low calorie/carb meals. Check fgstk once daily Encouraged physical activity as tolerated. FU in 4 months. Assessment & Plan (04/05/2023 10:06 AM EDT): New diagnosis. Findings discussed with pt he has a strong family history of DM + Hep C Refer to dietitian Counseled re more frequent low calorie/carb meals. Encouraged physical activity as tolerated. FU with me in 1 month and check fingerstick then Nocturia 04/01/2023 07/09/2024 Hyperglycemia 04/01/2023 07/09/2024 Dizziness 04/01/2023 07/09/2024 Encounters Date Type Department Care Team Description 11/09/2024 9:00 AM EST Office Visit [facility] [address] [place] [phone] Randi Cedeno MD Chronic hepatitis C without hepatic coma (CMS/HCC) (Primary Dx); Essential hypertension; IFG (impaired fasting glucose); Lower urinary tract symptoms (LUTS); HTN (hypertension), benign 11/09/2024 Travel 11/06/2024 Telephone [facility] [address] [place] [address] Randi Cedeno MD Chart prep 11/02/2024 Patient Outreach [facility] [address] [place], [place] [phone] Randi Cedeno MD Pre-visit Planning ([facility] unable to reach [facility]) 09/07/2024 Telephone [facility] [address] [place] [address] Randi Cedeno MD November recall from Last 3 Months Immunizations Name Administration Dates Next Due Influenza High-dose Quadriva lent Preservative Free 06/21/2023 Influenza injectable quadriv alent preservative free 06/11/2021,06/20/2020 Influenza, seasonal, injecta ble, preservative free 07/09/2024 Moderna Covid-19 Vaccine 12+ 01/14/2021,12/18/19 21,11/16/2020 Social History Tobacco Use Types Packs/Day Years Used Date Smoking Tobacco: Never Smokeless Tobacco: Never Tobacco Cessation:Counseling Given: Not Answered Alcohol Use Standard Drinks/Week Comments Never 0 (1 standard drink = 0.6 oz pur e alcohol) Depression Answer Date Recorded Patient Health Questionnaire-9 Score 0 07/09/2024 Patient Health Questionnaire-9 Score 0 07/09/2024 Last PHQ-9: Questionnaire Data Not on file 1 09/08/2023 Housing Stability Answer Date Recorded What is your housing situation today? I have talon mary kate 11/09/[address] you li ve. Do you have problems with any of the following? None of the above 11/09/2024 Food Insecurity Answer Date Recorded Within the [...] Access Answer Date Recorded Internet Access Q1 No 11/09/2024 Internet Access Q2 I do not want or need it 03/2025 Sex and Gender Information Value Date Recorded Sex Assigned at Male 07/05/2022 10:17 AM EDT Legal Sex Male 10:17 AM EDT Gender Identity Female 07/05/2022 10:17 AM EDT Sexual Orientation Choose not to disclose 2021 10:17 AM EDT Last Filed Vital Signs Vital Sign Reading Time Taken Comments Blood Pressure 174/92 11/09/2024 9:03 AM EST Pulse 64 11/09/2024 9:03 AM EST Temperature 35.6 ??C (96 ??F) 11/09/2024 9:03 AM EST Respiratory Rate 20 11/09/2024 9:03 AM EST Oxygen Saturation 98% 11/09/2024 9:03 AM EST Inhaled Oxygen Concentration - - Weight 82.3 kg (181 lb 8 oz) 11/09/2024 9:03 AM EST Height 175.3 cm (5' 9 ) 11/09/2024 9:03 AM EST Body Mass Index 26.8 11/09/2024 9:03 AM EST Plan of Treatment Health Maintenance Due Date Last Done Comments CT Colonography 1958 FIT DNA/Cologuard 1958 FIT 1958 FOBT 1958 Sigmoidoscopy 1958 Diabetes: Foot Exam 1968 Eye Exam 1968 Alcohol/Substance Use Screening 1970 DTaP/Tdap/Td Vaccines (1 - Tdap) 1977 Diabetes: Urine Protein Screening 1977 Hepatitis A Vaccines (1 of 2 - Risk 2-dose series) 1977 Pneumococcal Vaccine: 50+ Years (1 of 2 - PCV) 1977 Zoster Vaccines (1 of 2) 2008 Hepatitis B Vaccines (1 of 3 - Risk 3-dose series) 2018 RSV Patients and Patients Aged 60 years or older (1 - Risk 60-74 years 1-dose series) 2018 Lipid Panel 06/15/2023 06/15/2022, 03/10/2020 COVID-19 Vaccine ( season) 2024 01/14/2021, 12/17/2020, 11/16/2020 Diabetes: Hemoglobin A1C 01/06/2025 024, 04/05/2023, 09/23/2020, Additional history exists Depression Screening 07/09/2025 07/09/2024, 07/09/20 24 SDOH Screening 11/09/2025 11/09/2024 Tobacco Screening 11/09/2025 11/09/2024 Colonoscopy 12/24/2026 12/24/2021 Colorectal Cancer Screening 12/24/2026 Influenza Vaccine Completed 07/09/2024, , 06/11/2021, Additional history exists HIB Vaccines Aged Out No longer eligi ble based on patient's age to complete this topic HPV Vaccines Aged Out No longer eligi ble based on patient's age to complete this topic IPV Vaccines Aged Out No longer eligi ble based on patient's age to complete this topic Meningococcal Vaccine Aged Out No charly dariel eligible based on patient's age to complete this topic RSV under 20 months Aged Out No longe r eligible based on patient's age to complete this topic Rotavirus Vaccines Aged Out No longer eligible based on patient's age to complete this topic Procedures Procedure Name Priority Date/Time Associated Diagnosis Comments POCT GLYCATED HEMOGLOBIN, TOTAL Routine 07/09/2024 1:27 PM EST Type 2 diabetes mellitus without complication, without long-term current use of insulin ([facility]) LIPID PANEL, STANDARD Routine 06/15/2022 8:55 AM EDT HM COLONOSCOPY Routine 12/24/2021 from Last 3 Months or Most Recently Relevant to Health Maintenance Results * POCT A1C (07/09/2024 1:27 PM EST) Pathologist [facility] Hemoglobin A1C 6.0 4.0 - 6.0 % QC Media Lot # [id number] Lot# Expiration Date Blood 07/09/2024 1:27 PM EST Randi Cedeno MD POINT OF CARE TEST ENTER /EDIT ORDERABLES Final Result * LIPID PANEL, STANDARD (06/15/2022 8:55 AM EDT) Chol/HDLC Ratio 3.1 <5.0 (calc) CONVERTED LEGACY LABS Cholesterol, Total 175 <200 mg/dL CONVERTED LEGACY LABS HDL Cholesterol 57 > OR = 40 mg/dL CONVERTED LEGACY LABS LDL Cholesterol 99 mg/dL (calc) CONVERTED LEGACY LABS Comment: Reference range: <100 ?? Desirable range <100 mg/dL for primary prevention; ?? <70 mg/dL for patients with CHD or diabetic patients ?? with > or = 2 CHD risk factors. ?? LDL-C is now calculated using the Cherelle ?? calculation, which is a validated novel method providing ?? better accuracy than the Friedewald equation in the ?? estimation of LDL-C. ?? Tio ORNELAS et al. ED. 2013;310(19): 6353-2895 ?? (http://[employer].PeerJ/faq/IFI648) Non-HDL Cholesterol 118 <130 mg/dL (calc) CONVERTED LEGACY LABS Comment: For patients with diabetes plus 1 major ASCVD risk ?? factor, treating to a non-HDL-C goal of <100 mg/dL ?? (LDL-C of <70 mg/dL) is considered a therapeutic ?? option. Triglycerides 101 <150 mg/dL CONVE RTED LEGACY LABS 06/15/2022 8:55 AM EDT Randi Cedeno MD LAB BLOOD ORDERABLES Fin al Result CONVERTED LEGACY LABS * (ABNORMAL) Hm Colonoscopy (12/24/2021) Colonoscopy Abnormal( A) Normal Comment:FH of CRC 12/24/2021 Randi Cedeno MD HEALTH MAINTENANCE Final Result from Last 3 Months or Most Recently Relevant to Health Maintenance Insurance [facility] MEDICARE ADVANTAGE HMO MEDICARE Care Teams Sugar Sampler Relationship Specialty Start Date End Date Randi Cedeno MD [address] [place] [phone] PCP - General Family Medicine 04/22/20
--- OUTSIDE RECORDS SUMMARY | 2024-11-15 06:49 | XMS_ITS | Encounter Summary ---
Author Organization [employer] Address [address] [facility] [address] [place] [address] Care Team Providers Care Grid Casting Machine Operator Helper Name Role Phone Randi Cedeno MD Primary Care Provider + Reason for Visit * Reason Comments Hypertension Encounter Details Date Type Department Care Team ([facility] Contact Info) Description 11/09/2024 9:00 AM EST Office Visit [facility] [address] [place], [place] [phone] Randi Cedeno MD [address] [place], [place] [phone] Chronic hepatitis C without hepatic coma (CMS/HCC) (Primary Dx); Essential hypertension; IFG (impaired fasting glucose); Lower urinary tract symptoms (LUTS); HTN (hypertension), benign Social History Tobacco Use Types Packs/Day Years [...] your housing situation today? I have talon hartmann 11/09/[address] you li [...] AM EDT documented as of this encounter Last Filed Vital Signs Vital Sign Reading [...] Mass Index 26.8 11/09/2024 9:03 AM EST documented in this encounter Progress Notes * Randi Cedeno MD - 11/09/2024 9:00 AM EST SUBJECTIVE: Clyde Luna is a 64 y.o. year old adult who presents for follow up HCV. Denies recent illness, injury, or hospitalization. Patient is here for follow-up, overall he is doing well. He has not started HCV treatment as he is unable to afford the copayment of approximately $3000 per treatment. He has appointment with GI nextmonth apparently for EGD. He denies episodes of icterus, MS changes or GI bleeding. He has not drank alcohol in many years and this denies using any recreational substances. His BP at home is usually controlled, apparently 140s over 80s, he does not check it blood pressureregularly. He needs refills on Flomax. Acute Concerns: Social History Social History Narrative Not on file Patient Active Problem List Diagnosis Varicose veins of lower extremity Right upper quadrant pain IFG (impaired fasting glucose) Housing instability Essential hypertension Cough Cirrhosis of liver (CMS/HCC) Chronic hepatitis C (CMS/HCC) Acute COVID-19 Vasculogenic erectile dysfunction Lower urinary tract symptoms (LUTS) Irritant contact dermatitis Neck pain No family history on file. Review of Systems Constitutional: Negative for chills, fatigue and fever. HENT: Negative for congestion, ear pain, nosebleeds, rhinorrhea, sinus pressure, sore throat and trouble swallowing. Eyes: Negative for pain and discharge. Respiratory: Negative for cough, chest tightness and shortness of breath. Cardiovascular: Negative for chest pain, palpitations and leg swelling. Gastrointestinal: Negative for abdominal pain, blood in stool, constipation, diarrhea and nausea. Endocrine: Negative for polydipsia and polyuria. Genitourinary: Negative for dysuria, frequency, genital sores, pelvic pain and vaginal discharge. Musculoskeletal: Negative for back pain and neck pain. Skin: Negative for rash. Allergic/Immunologic: Negative for environmental allergies. Neurological: Negative for dizziness, seizures, weakness, light-headedness and headaches. Hematological: Negative for adenopathy. Psychiatric/Behavioral: Negative for agitation, behavioral problems, self-injury and suicidal ideas. OBJECTIVE: Vitals: 11/09/24 0903 BP: (!) 174/92 BP Location: Left arm Patient Position: Sitting BP Cuff Size: Large adult Pulse: 64 Resp: 20 Temp: 96 ??F (35.6 ??C) TempSrc: Temporal SpO2: 98% Weight: 181 lb 8 oz (82.3 kg) Height: 5' 9 (1.753 m) Physical Exam HENT: Right Ear: Tympanic membrane and ear canal normal. Left Ear: Tympanic membrane and ear canal normal. Mouth/Throat: Mouth: Mucous membranes are moist. Pharynx: No oropharyngeal exudate or posterior oropharyngeal erythema. Eyes: Pupils: Pupils are equal, round, and reactive to light. Cardiovascular: Rate and Rhythm: Regular rhythm. Pulses: Normal pulses. Heart sounds: Normal heart sounds. No murmur heard. Pulmonary: Breath sounds: Normal breath sounds. Abdominal: General: Bowel sounds are normal. Palpations: Abdomen is soft. Tenderness: There is no abdominal tenderness. Musculoskeletal: General: Normal range of motion. Cervical back: Neck supple. Skin: General: Skin is warm. Neurological: General: No focal deficit present. Mental Status: She is alert and oriented to person, place, and time. Psychiatric: Mood and Affect: Mood normal. Behavior: Behavior normal. Problem List Items Addressed This Visit Chronic hepatitis C (CMS/HCC) - Primary Failed IFN and Epclusa. Followed by GI but unable to afford copayment for new treatment. He has the phone number of copayment assistance program: #[phone] , I reminded him to call andfollow-up with GI for EGD, if no rx is possible bc access $$$, I will refer him to [facility]. He's Hep A/B immune (previous Hep B infection) Follow-up with me in 3 months Essential hypertension Uncontrolled today. Patient will check BP at home 3 times per week and drop BP log at the front desk person or send it to us via [employer]. Continue losartan HCTZ, order labs. Reminded him regarding low-salt diet, exercise. Relevant Orders Basic Metabolic Panel Lipid Panel with Reflex to Direct LDL IFG (impaired fasting glucose) Relevant Orders Lipid Panel with Reflex to Direct LDL TSH with Reflex to Free T4 Lower urinary tract symptoms (LUTS) He has BPH, doing better on Flomax. Continue Flomax nightly Relevant Medications tamsulosin (Flomax) 0.4 MG 24 hr capsule Other Visit Diagnoses HTN (hypertension), benign Follow Up: Current Outpatient Medications on File Prior to Visit Medication Sig Dispense Refill acetaminophen (Tylenol) 500 MG tablet take 1 tablet by oral route every6 -8 hours as needed not to exceed 4 tablets per 24hrs clobetasol (Temovate) 0.05 % ointment Apply topically 2 times daily. 30 g 0 ketotifen (Zaditor) 0.025 % ophthalmic solution Administer 1 drop into affected eye(s) every 8 (eight) hours. losartan-hydroCHLOROthiazide (Hyzaar) 50-12.5 MG tablet TAKE 1 TABLET BY MOUTH EVERY DAY 90 tablet 1 loteprednol (Lotemax) 0.5 % ophthalmic suspension SHAKE LIQUID AND INSTILL 1 DROP IN RIGHT EYE DAILY FOR 1 WEEK. CALL IF SYMPTOMS PERSIST OR WORSEN oxyCODONE (Roxicodone) 5 MG immediate release tablet Take 5 mg by mouth every 6 (six) hours if needed. [DISCONTINUED] cetirizine (ZyrTEC) 10 MG tablet Take 1 tablet by mouth at bed time. [DISCONTINUED] cyclobenzaprine (Flexeril) 10 MG tablet Take 1 tablet by mouth every 12 (twelve) hours. [DISCONTINUED] flurbiprofen (Ansaid) 100 MG tablet Take 100 mg by mouth 2 times daily. [DISCONTINUED] fluticasone (Flonase) 50 MCG/ACT nasal spray Administer 1-2 sprays into affected nostril(s) at bed time. [DISCONTINUED] tamsulosin (Flomax) 0.4 MG 24 hr capsule Take 1 capsule (0.4 mg) by mouth at bedtime. 90 capsule 2 No current facility-administered medications on file prior to visit. documented in this encounter Miscellaneous Notes * Assessment & Plan Note - Randi Cedeno MD - 11/09/2024 12:41 PM EST Associated Problem(s): Lower urinary tract symptoms (LUTS) He has BPH, doing better on Flomax. Continue Flomax nightly * Assessment & Plan Note - Randi Cedeno MD - 11/09/2024 12:41 PM EST Associated Problem(s): Chronic hepatitis C (CMS/HCC) Failed IFN and Epclusa. Followed by GI but unable to afford copayment for new treatment. He has the phone number of copayment assistance program: #[phone] , I reminded him to call andfollow-up with GI for EGD, if no rx is possible bc access $$$, I will refer him to [facility]. He's Hep A/B immune (previous Hep B infection) Follow-up with me in 3 months * Assessment & Plan Note - Randi Cedeno MD - 11/09/2024 12:40 PM EST Associated Problem(s): Essential hypertension Uncontrolled today. Patient will check BP at home 3 times per week and drop BP log at the front desk person or send it to us via [employer]. Continue losartan HCTZ, order labs. Reminded him regarding low-salt diet, exercise. documented in this encounter Plan of Treatment Scheduled Orders Name Type Priority Associated Diagnoses Orde r Schedule Basic Metabolic Panel Lab Routine Essential hypertension Expected: 11/09/2024 (Approximate), Expires: 11/09/2025 Lipid Panel with Reflex to Direct LDL Lab Routine Essential hypertension IFG (impaired fasting glucose) Expected: 11/09/2024 (Approximate), Expires: 11/09/2025 TSH with Reflex to Free T4 Lab Routine IFG (impaired fasting glucose) Expected: 11/09/2024 (Approximate), Expires: 11/09/2025 documented as of this encounter Visit Diagnoses Diagnosis Chronic hepatitis C without hepatic coma (CMS/HCC)- Primary Essential hypertension Unspecified essential hypertension IFG (impaired fasting glucose) Lower urinary tract symptoms (LUTS) HTN (hypertension), benign Essential hypertension, benign documented in this encounter Additional Health Concerns Assessment Noted Time PHQ-9 Depression Total Score: 0 07/09/20 24 1:15 PM EST documented as of this encounter Care Teams Grid Casting Machine Operator Helper Relationship Specialty Start Date End Date Randi Cedeno MD [address] [place] [address] PCP - General Family Medicine 04/22/20 documented as of this encounter
--- OUTSIDE RECORDS SUMMARY | 2024-11-15 06:49 | XMS_ITS | Encounter Summary ---
Author Organization [employer] Address [address] [facility] [address] [place] [address] Care Team Providers Care Manager Commission Name Role Phone Randi Cedeno MD Primary Care Provider + Reason for Visit * Reason Onset Date Comments Chart prep 11/06/2024 Encounter Details Date Type Department Care Team ([facility] Contact Info) Description 11/06/2024 Telephone [facility] [address] [place], [place] [phone] Randi Cedeno MD [address] [place], [place] [phone] Chart prep Social History Tobacco Use Types Packs/Day Years [...] AM EDT documented as of this encounter Miscellaneous Notes * Telephone Encounter - Lisandra Gupta [place] - 11/06/2024 10:29 AM EST Chart Prep Labs: done Images: done Vaccines due: yes Referrals: complete Screenings: Foot Exam Overdue care gaps: SDOH documented in this encounter Plan of Treatment Not on file documented as of this encounter Visit Diagnoses Not on filedocumented in this encounter Additional Health Concerns Assessment Noted Time PHQ-9 Depression Total Score: 0 07/09/20 24 1:15 PM EST documented as of this encounter Care Teams Manager Commission Relationship Specialty Start Date End Date Randi eCdeno MD [address] [place] [id number] PCP - General Family Medicine 04/22/20 documented as of this encounter
--- OUTSIDE RECORDS SUMMARY | 2024-11-15 06:49 | XMS_ITS | Encounter Summary ---
Author Organization [employer] Address [address] [facility] 7t [place] [address] Care Team Providers Care Clinical Support Nurse Name Role Phone Randi Cedeno MD Primary Care Provider + Encounter Details Date Type Department Care Team (Latest Contact Info) Description 11/09/2024 Travel Social History Tobacco Use Types Packs/Day Years [...] documented as of this encounter Care Teams Clinical Support Nurse Relationship Specialty Start Date End Date Randi Cedeno MD [address] [place] [phone] PCP - General Family Medicine 04/22/20 documented as of this encounter
[2024-11-15 08:05] LABS: Anion Gap 12 (12-20); Blood Urea Nitrogen 25 mg/dL (9-16); Calcium 8.6 mg/dL (8.4-10.2); Carbon Dioxide 23 mmol/L (22-29); Chloride 107 mmol/L (96-108); Cholesterol 136 mg/dL (<200); Estimated Glomerular Filt Rate > 60; Glucose Random 209 mg/dL (60-115); HDL Cholesterol 47 mg/dL (>40); LDL Cholesterol Calculated 73 mg/dL (<100); Potassium 4.3 mmol/L (3.3-5.1); Sodium 138 mmol/L (135-145); Triglycerides 81 mg/dL (<150)
[2024-11-15 08:21] LABS: TSH reflex Free T4 1.59 uIU/mL (0.32-4.0)
[2024-11-15 10:32] LABS: Reflex LDLD? No
== END 2024-11-15 06:47 | disposition home or self-care (01) ==
LOC: HO.LAB 06:46
PROVIDERS: PCP Internal Medicine; Visit Provider Internal Medicine
DX: R73.01 Impaired fasting glucose (principal); I10 Essential (primary) hypertension
CPT/HCPCS: 36415; 80048; 80061; 84443

== ENCOUNTER 2025-05-02 13:57 | Outpatient (REF) | payer MEDICARE, SELFPAY ==
--- OUTSIDE RECORDS SUMMARY | 2025-05-02 14:48 | XMS_ITS | Encounter Summary ---
Author Organization [employer] Address [address] [facility] 7t [place] [address] Care Team Providers Care Business Sales Consultant Name Role Phone Randi Cedeno MD Primary Care Provider + Encounter Details Date Type Department Care Team ([facility] Contact Info) Description 05/01/2025 Orders Only [facility] [address] [place], [place] [phone] Rosy Toure MD [address] [place], [place] [phone] Social History Tobacco Use Types Packs/Day Years [...] as of this encounter Plan of Treatment Upcoming Encounters Date Type Department Care Team (Late st Contact Info) Description 06/25/2025 9:00 AM EDT Office Visit [facility] [address] [place] [phone] Randi Cedeno MD [address] [place] [phone] documented as of this encounter Visit Diagnoses Not on filedocumented in this encounter Additional Health Concerns Assessment Noted Time PHQ-9 Depression Total Score: 0 07/09/20 24 1:15 PM EST documented as of this encounter Care Teams Business Sales Consultant Relationship Specialty Start Date End Date Randi Cedeno MD [address] [place] [phone] PCP - General Family Medicine 04/22/20 documented as of this encounter
--- OUTSIDE RECORDS SUMMARY | 2025-05-02 14:48 | XMS_ITS | Encounter Summary ---
Author Organization [employer] Address [address] [facility] 7t [place] [address] Care Team Providers Care Flakeboard Line Tender Name Role Phone Randi Cedeno MD Primary Care Provider + Encounter Details Date Type Department Care Team (Late Contact Info) Description 08/24/2022 Orders Only [facility] [address] [place], [place] [phone] Helga Gardiner LPN Social History Tobacco Use [...] Encounters Date Type Department Care Team (Late Contact Info) Description 06/25/2025 9:00 AM EDT Office Visit [facility] [address] [place], [place] [phone] Randi Cedeno MD [address] [place], [place] [phone] documented as of this encounter Procedures Procedure Name Priority Date/Time Associated Diagnosis Comments HIV ANTIBODY/ANTIGEN ([facility]) Routine 06/22/2023 9:21 AM EDT HCV RNA [...] 9:21 AM EDT) Liver Fibrosis Score 0.84 [facility] Liver Fibrosis Stage F4 [facility] Liver Fibrosis Interpretation SEE NOTE [facility] Comment:severe fibrosisFibro Test Score (f) Metavir Score f>=0 and f<=0.21 : F0 (no fibrosis)f>0.21 and f<=0.27 : F0-F1 (no fibrosis)f>0.27 and f<=0.31 : F1 (minimal fibrosis)f>0.31 and f<=0.48 : F1-F2 (minimal fibrosis)f>0.48 and f<=0.58 : F2 (moderate fibrosis)f>0.58 and f<=0.72 : F3 (advanced fibrosis)f>0.72 and f<=0.74 : F3-F4 (advanced fibrosis)f>0.74 and f<=1.00 : F4 (severe fibrosis) Nec Inflam Act Score 0.88 [facility] Nec Inflam Act Grade A3 [facility] Nec Inflam Act Interpretation SEE NOTE [facility] Comment:severe activityActiT est Score (a) Metavir Score a>=0 and a<=0.17 : A0 (no activity)a>0.17 and a<=0.29 : A0-A1 (no activity)a>0.29 and a<=0.36 : A1 (minimal activity)a>0.36 and a<=0.52 : A1-A2 (minimal activity)a>0.52 and a<=0.60 : A2 (significant activity)a>0.60 and a<=0.62 : A2-A3 (significant activity)a>0.62 and a<=1.00 : A3 (severe activity) LDG-Rrfnz-9-Macroglo bulin 329(A) 106 - 279 mg/dL [facility] FIB-Haptoglobin 11(A) 43 - 212 mg/dL [facility] FIB-Apolipoprotein A1 198(A) 94 - 176 mg/dL [facility] FIB-Total Bilirubin 0.9 0.2 - 1.2 mg/dL [facility] FIB-GGT 47 3 - 70 U/L [facility] FIB-ALT 167(A) 9 - 46 U/L [facility] Reference ID [id number] [facility] Footnote SEE NOTE [facility] Comment: The reliability of results [...] and C.The performance characteristics have been determined byinploid.com [facility]. Ithas not been cleared or approved by the U.S. Food and DrugAdministration. Performance characteristics refer to theanalytical performance of the test.[facility], the associated logo, [employer] and all associated [employer]com alvarez are theregistered trademarks of [employer]. All third partymarks - (R) and (TM) - are the property of their respectiveowners. (C) [phone] [employer] Incorporated. Allrights reserved.THIS TEST WAS PERFORMED AT:[facility]/[employer] [id number] [place] [address]ALOYNCANDY SHAH MD,PHD,LAUREN 06/22/2023 9:21 AM EDT 06/22/2023 9:33 AM EDT us Generic External Data Provider LAB BLOOD ORDERAB LES Final Result [facility] [address] [place] [phone] * RANDI Screen,IFA, with Reflex to Titer and Pattern (06/22/2023 9:21 AM EDT) Anti Nuclear Antibody Screen NEGATIVE NEGATIVE [facility] Comment:RANDI IFA is a first [...] clinicallysuspected inflammatory myopathies.AC-0: NegativeInternational Consensus on RANDI Patterns(https://doi.org/10.1515/nxwa-5798-2194)For additional information, please refer tohttp://education.[employer]/faq/NSB620(This link is being provided for informational/educational purposes only.)THIS TEST WAS PERFORMED AT:[facility] [address] [address]BTZKRLINO MCGARRY MD RANDI Titer TNP [facility] RANDI Pattern TNP [facility] RANDI TITER 2 (REF LAB) TNP [facility] RANDI Pattern 2 TNP [facility] RANDI TITER 3 [facility] PATTERN 3 [facility] 06/22/2023 9:21 AM EDT 06/22/2023 9:33 AM EDT [facility] External Provider LAB BLO OD ORDERABLES Final Result [facility] [address] [place] [phone] * Actin (Smooth Muscle) Antibody (IgG) (06/22/2023 9:21 AM EDT) Smooth Muscle Antibody <20 <20 U [facility] Comment:Reference Range: <20 U: Negative>or=20 [...] with AIH type 1.THIS TEST WAS PERFORMED AT:[facility] [place] [address]BBNTWLMSCOTTIE MCKENNA MD,PHD 06/22/2023 9:21 AM EDT 06/22/2023 9:33 AM EDT Generic External Data Provider LAB BLOOD ORDERAB LES Final Result [facility] [address] [place] [address] [phone] * T-SPOT??.TB (06/22/2023 9:21 AM EDT) T Spot TB Negative Negative [facility] Comment:A negative test resu lt [...] as aquantitative test. TS PANEL A 0 [facility] TS PANEL B 0 [facility] Negative Control Passed [facility] Positive Control Passed [facility] Comment:For additional infor faviola, please refer tohttp://education.[employer]/faq/UTS191(This link is being provided for informational/educational purposes only.)THIS TEST WAS PERFORMED AT:[facility]/[id number] [place] [address]VQYIYDESCOTTIE MCKENNA MD,PHD 06/22/2023 9:21 AM EDT 06/22/2023 9:33 AM EDT [facility] External Provider LAB BLO OD ORDERABLES Final Result [facility] [address] [place] [phone] * (ABNORMAL) HCV RNA BY PCR, QN RFX GRACE (06/22/2023 9:21 AM EDT) HCV RNA PCR QN [id number]( A) NOT DETECTED IU/mL [facility] HCV RNA PCR QN 6.50(A) NOT DETECTED Log IU/mL [facility] HCV RNA COMMENT SEE NOTE [facility] Comment:This test was perfor med using Real-Time Polymerase ChainReaction.Reportable Range: 15 IU/mL to 100,000,000 IU/mL(1.18 Log IU/mL to 8.00 Log IU/mL).The analytical performance characteristics of this assayhave been determined by inploid.com. Themodifications have not been cleared or approved by theFDA. This assay has been validated pursuant to the CLIARegulations and is used for clinical purposes.For more information on this test, go to:http://MCH+.[employer] [facility]/faq/GIJ53h3(This link is being provided for informational/Educational purposes only.)THIS TEST WAS PERFORMED AT:[employer] ([facility])[address] [place] [address]IMWFZLINO MCGARRY MD HCV RNA GENOTYPE,LIPA 1b [facility] Comment:The method used in t his test is RT-PCR and reversehybridization (Line Probe) of the 5' UTR and coreregion of the HCV genome.The analytical performance characteristics of thisassay have been determined by [place]. The modificationshave not been cleared or approved by the FDA. Thisassay has been validated pursuant to the CLIAregulations and is used for clinical purposes.For additional information, please refer tohttp://MCH+.[employer]/faq/HCVGenotyping(This link is being provided for informational/educational purposes only.)THIS TEST WAS PERFORMED AT:[facility] [place] [address]SSKVVBX W. MASON,MD,PHD 06/22/2023 9:21 AM EDT 06/22/2023 9:33 AM EDT [facility] External Provider LAB BLO OD ORDERABLES Final Result Performing Organization Address [facility] Co de Phone Number [facility] [address] [place] [address] [phone] * Mitochondrial Antibody with Reflex to Titer (06/22/2023 9:21 AM EDT) Mitochondrial Antibodies NEGATIVE NEGATIVE [facility] Comment:THIS TEST WAS PERFOR MED AT:[facility] [address] [address]LBHZUEDIE MCGARRY MD Mitochondrial Ab Titer TNP [facility] 06/22/2023 9:21 AM EDT 06/22/2023 9:33 AM EDT [facility] External Provider LAB BLO OD ORDERABLES Final Result Performing Organization Address [facility] de Phone Number [facility] [address] [place] [phone] * Alpha-Fetoprotein, Tumor Marker (06/22/2023 9:21 AM EDT) Pathologist [facility] Alpha Fetoprotein 4.8 <6.1 ng/mL [facility] Comment:This test was perfor med using the Jesús Coulterchemiluminescent method. Values obtained fromdifferent assay methods cannot be usedinterchangeably. AFP levels, regardless ofvalue, should not be interpreted as absoluteevidence of the presence or absence of disease.THIS TEST WAS PERFORMED AT:[facility] [address] [address]ZHFZBEDIE MCGARRY MD 06/22/2023 9:21 AM EDT 06/22/2023 9:33 AM EDT [facility] External Provider LAB BLO OD ORDERABLES Final Result Performing Organization Address [facility]/ZIP Co de Phone Number [facility] [address] [place] [address] [phone] * HIV Ab/Ag (DUSTIN DP) (06/22/2023 9:21 AM EDT) HIV AB/AG Nonreactive Nonreactive [facility] Comment:HIV-1 p24 Ag and/or HIV-1/HIV-2 Ab not detected.A test result that is nonreactive does not exclude thepossibility of exposure to or infection with HIV-1 and/orHIV-2. Nonreactive results in this assay for individualswith prior exposure to HIV-1 and/or HIV-2 may be due toantigen and antibody levels that are below the limit ofdetection of this assay.The [employer] HIV Ag/Ab Combo assay result andsupplemental assay results should be interpreted inconjunction with the patient's clinical presentation,history and other laboratory results. If the results areinconsistent with clinical evidence, additional testing issuggested to confirm the result. 06/22/2023 9:21 AM EDT 06/22/2023 9:33 AM EDT us Generic External Data Provider LAB BLOOD ORDERAB LES Final Result Performing Organization Address [facility] Co de Phone Number [facility] [address] [place] [address] [phone] * (ABNORMAL) Hepatitis Panel, General (06/22/2023 9:21 AM EDT) Hepatitis A IgM Nonreactive Nonreactive [facility] Comment:IgM antibodies to LIM V not detected; does not exclude earlyacute or recovered HAV infection. ~Hepatitis B Surface Antibody REACTIVE Nonreactive [facility] Comment:REACTIVE: > 11.99 mI U/mL Hepatitis B Core Antibody Reactive Nonreactive [facility] Comment:Presumptive evidence of anti-HBc. Hepatitis C Antibody Reactive(A) Nonreactive [facility] Comment:Presumptive evidence of antibodies to HCV. Hepatitis B Surface Ag Negative Negative [facility] 06/22/2023 9:21 AM EDT 06/22/2023 9:33 AM EDT [facility] External Provider LAB BLO OD ORDERABLES Final Result Performing Organization Address City/[facility]/ZIP Co de Phone Number [facility] [address] [place] [address] [phone] * (ABNORMAL) Ferritin (06/22/2023 9:21 AM EDT) Ferritin 253(H) 20 - 250 ng/mL [facility] 06/22/2023 9:21 AM EDT 06/22/2023 9:33 AM EDT Generic External Data Provider LAB BLOOD ORDERAB LES Final Result Performing Organization Address [facility]/ZIP Co de Phone Number [facility] [address] [place] [address] [phone] * (ABNORMAL) Comprehensive Metabolic Panel (06/22/2023 9:21 AM EDT) Sodium 136 135 - 145 mmol/L [facility] Potassium 4.1 3.3 - 5.1 mmol/L [facility] Chloride 104 96 - 108 mmol/L [facility] Carbon Dioxide 23 22 - 29 mmol/L [facility] Anion Gap 13 12 - 20 [facility] Urea Nitrogen (BUN) 26(H) 9 - 16 mg/dL [facility] Creatinine, Serum 0.88 0.5 - 1.4 mg/dL [facility] Estimated Glomerular Filt Rate >60 [facility] Comment:NOTE: For -Am erican individuals, multiply the result by 1.210.Chronic Kidney Disease: Estimated GFR < 60 mL/min/1.17c8Uzvrqu Kidney Disease: Estimated GFR < 15 mL/min/1.73m2 Glucose 142(H) 60 - 115 mg/dL [facility] Calcium 9.2 8.4 - 10.2 mg/dL [facility] Bilirubin, Total 1.0 0.0 - 1.0 mg/dL [facility] Aspartate Amino Transferase 114(H) 5 - 37 U/L [facility] Alanine Aminotransferase 196(H) 0 - 40 U/L [facility] Total Protein 7.1 6.5 - 8.0 g/dL [facility] Albumin Level 3.8 3.5 - 5.0 g/dL [facility] Alkaline Phosphatase 99 39 - 117 U/L [facility] 06/22/2023 9:21 AM EDT 06/22/2023 9:33 AM EDT us [facility] External Provider LAB BLO OD ORDERABLES Final Result [facility] [address] [place], [place] [phone] * (ABNORMAL) CBC auto differential (06/22/2023 9:21 AM EDT) White Blood Count 4.3(L) 4.8 - 10.8 X10*3/uL [facility] Red Blood Count 4.73 4.60 - 5.80 X10*6/uL [facility] Hemoglobin 14.9 14.0 - 18.0 g/dl [facility] Hematocrit 42.5 42.0 - 52.0 % [facility] Mean Corpuscular Volume 89.9 80.0 - 98.0 fL [facility] Mean Corpuscular Hemoglobin 31.5 27.0 - 33.0 pg [facility] Mean Corpuscular HGB Conc 35.1 31.0 - 36.0 g/dl [facility] Red Cell Distribution Width 11.8 11.0 - 16.0 % [facility] Platelet Count 116(L) 160 - 400 X10*3/uL [facility] Mean Platelet Volume 10.8 9.4 - 12.4 fL [facility] Neutrophils Percent Auto 61.1 45 - 73 % [facility] Imm Gran Pct Auto 0.2 0.0 - 0.4 % [facility] Lymphocytes Percent Auto 22.4 20 - 40 % [facility] Monocytes Percent Auto 13.5(H) 2 - 11 % [facility] Eosinophils Percent Auto 2.3 0 - 4 % [facility] Basophils Percent Auto 0.5 0 - 2 % [facility] NRBC Pct Auto 0.0 0.0 - 0.2 /100WBC [facility] Neutrophils Absolute Auto 2.6 2.0 - 8.3 x10*3/uL [facility] Imm Gran Abs Auto 0.01 0.00 - 0.03 X10*3/uL [facility] Lymphocytes Absolute Auto 1.0(L) 1.2 - 4.9 X10*3/uL [facility] Monocytes Absolute Auto 0.6 0.1 - 1.2 X10*3/uL [facility] Eosinophils Absolute Auto 0.1 0.0 - 0.4 X10*3/uL [facility] Basophils Absolute Auto 0.0 0.0 - 0.2 X10*3/uL [facility] NRBC Abs Auto 0.000 0.0 - 0.012 X10*3/uL [facility] 06/22/2023 9:21 AM EDT 06/22/2023 9:33 AM EDT us [facility] External Provider LAB BLO OD ORDERABLES Final Result [facility] [address] [place] [phone] documented in this encounter Visit Diagnoses Not on filedocumented in this encounter Care Teams Flakeboard Line Tender Relationship Specialty Start Date End Date Randi Cedeno MD [address] [place] [phone] PCP - General Family Medicine 04/22/20 documented as of this encounter
--- OUTSIDE RECORDS SUMMARY | 2025-05-02 14:48 | XMS_ITS | Clinical Summary ---
Author Organization [employer] Address [address] [place] [address] [address] [place] [address] Care Team Providers Care Director [employer] Name Role Phone Randi Cedeno MD Primary Care Provider + Allergies Active Allergy Reactions Criticality Noted Date Comments Jey Inhibitors Cough 10/06/2021 Medications acetaminophen (Tylenol) 500 MG tablet take 1 tablet by oral route every6 -8 hours as needed not to exceed 4 tablets per 24hrs 2 Active loteprednol (Lotemax) 0.5 % ophthalmic suspension SHAKE LIQUID AND INSTILL 1 DROP IN RIGHT EYE DAILY FOR 1 WEEK. CALL IF SYMPTOMS PERSIST OR WORSEN 4 Active tamsulosin (Flomax) 0.4 MG 24 hr capsuleIndicati ons:Lower urinary tract symptoms (LUTS) Take 1 capsule (0.4 mg) by mouth at bedtime. 90 capsule 2 5 11/10/19 26 Active FREESTYLE LITE test strip Use to test blood sugar 1x times daily 100 each 12 5 03/13/20 26 Active Lancets misc Use to test blood sugar 1x times daily 100 each 11 5 Active Alcohol Swabs 70 % pads Use to test blood sugar 1x times daily 100 each 3 5 Active Blood Glucose Monitoring Suppl (FreeStyle [employer] Lite) w/Device kit Use to test blood sugar 1x times daily 1 kit 5 Active Blood Glucose Monitoring Suppl (FreeStyle Lite) device Inject 1 each under the skin Use as directed. Please use to check blood sugar once daily. 1 each 5 Active Blood Glucose Monitoring Suppl (Accu-Chek Guide Me) w/Device kitIndications: Type 2 diabetes mellitus without complication, without long-term current use of insulin ([facility]) USE TO TEST BLOOD SUGAR ONCE A DAY 1 kit 5 Active glucose blood (Accu-Chek Guide Test) test stripIndication s:Type 2 diabetes mellitus without complication, without long-term current use of insulin (CMS/HCC) USE TO TEST BLOOD SUGAR ONCE A DAY 100 each 3 5 03/14/20 26 Active Accu-Chek Softclix Lancets lancetsIndicati ons:Type 2 diabetes mellitus without complication, without long-term current use of insulin (CMS/[facility]) USE TO TEST BLOOD SUGAR ONCE A DAY 100 each 3 5 03/14/20 26 Active losartan-hydroC HLOROthiazide (Hyzaar) 100-25 MG tablet Take 1 tablet by mouth Once per day. 90 tablet 3 5 05/01/20 26 Active losartan-hydroC HLOROthiazide (Hyzaar) 50-12.5 MG tabletIndicatio ns:HTN (hypertension), benign TAKE 1 TABLET BY MOUTH EVERY DAY 90 tablet 1 5 05/01/20 25 Discontinu ed(Dose adjustment ) Active Problems Problem Noted Date Diagnosed Date Lower urinary tract symptoms (LUTS) 04/05/2023 Assessment & Plan (03/13/2025 10:35 AM EDT): Partially improved with Flomax. Refer to urologist Assessment & Plan (11/09/2024 12:41 PM EST): [...] workup Varicose veins of lower extremity 04/01/2023 Assessment & Plan (03/13/2025 10:32 AM EDT): More on left side. Continue to use compression stockings. Refer to vascular surgeon Right upper quadrant pain 04/01/2023 IFG (impaired fasting glucose) 04/01/2023 Assessment & Plan (03/13/2025 3:17 PM EDT): Patient has DM, A1c is at goal. Continue off medications I counseled re more frequent low calorie/carb meals. Check fgstk 1x daily Encouraged physical activity as tolerated. FU in 4 months. Will obtain information from this year visit to [facility] eye clinic (Dr. Castro) Foot examination is normal, no diabetic neuropathy Assessment & Plan (07/10/2024 10:56 AM EST): [...] 04/01/2023 Essential hypertension 04/01/2023 Assessment & Plan (03/13/2025 3:16 PM EDT): Uncontrolled today. Continue losartan/hydrochlorothiazide Follow up with the Nurse for blood pressure check in 2 weeks. Continue with a low sodium diet and regular exercise as tolerated. For BP < or = to 139/89 (or 129/79 for diabetic patients) continue current medication regimen and follow up with PCP in 4-5m. For BP > or = to 140/90 (or 130/80 for diabetic patients) increase Losartan/hctz to 100/12.5 mg once a day Follow up with the Nurse for a second blood pressure check in 2-4 weeks if BP 140-150/90+ (or 130-150/80+ for diabetic patients). Refer to CDTM for BP >150/90+. If second Nurse visit is needed: For BP < or = to 139/89 (or 129/79 for diabetic patients) continue current medication regimen and follow up with the PCP in 3m. Order BMP 3-4w after starting new dose For BP > or = to 140/90 (or 130/80 for diabetic patients) increase Losartan/hctz to 100/25 mg once a day Order BMP 3-4w after starting new dose Follow up with the PCP in 4 weeks. Assessment & Plan (11/09/2024 12:40 PM EST): Uncontrolled today. Patient will check BP at home 3 times per week and drop BP log at the front office associate or send it to us via [employer]. Continue losartan HCTZ, order labs. 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 Fu LFTs yearly, for increased risk Hepatocell Ca, order labs I advised to avoid ETOH/drugs, keep healthy weight and life style. Advised Izs including RSV and Tdap, he had 1 dose of shingles and PCV 20. He declined Covid vax, Assessment & Plan (07/10/2024 10:55 AM EST): [...] the phone number of copayment assistance program: #[phone] , I reminded him to call and follow-up with GI for EGD, if no rx is possible bc access $$$, I will refer him to [facility]. 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 Referred to [facility] but he's unable to afford copayment for Vosevi I gave him infor re copayment assistance program: #[phone] for him to call and fu with GI on Aug. If no rx is possible bc access $$$, I will refer him to [facility]. He's Hep A/B immune (previous Hep B [...] Encounters Date Type Department Care Team Description 05/01/2025 Orders Only [facility] [address] [place] [id number] Rosy Toure MD 04/24/2025 9:30 AM EDT Clinical Support [facility] [place] [address] Garfield Devi RN HTN (hypertension), benign 04/24/2025 Travel 03/27/2025 9:30 AM EDT Clinical Support [facility] [place] [address] Garfield Devi RN HTN (hypertension), benign 03/27/2025 Travel 03/19/2025 Telephone [facility] [address] [place] [address] Randi Cedeno MD DME for compression stockings 2025 Refill [facility] [address] [place] [address] Randi Cedeno MD Type 2 diabetes mellitus without complication, without long-term current use of insulin (CMS/HCC) 03/13/2025 9:15 AM EDT Office Visit [facility] [address] [place] [address] Randi Cedeno MD IFG (impaired fasting glucose) (Primary Dx); Essential hypertension; Other cirrhosis of liver (CMS/HCC); Lower urinary tract symptoms (LUTS); Varicose veins of both lower extremities with pain 03/13/2025 Refill [facility] [address] [place] [address] Randi Cedeno MD 03/13/2025 Travel 03/11/2025 Telephone [facility] [address] [place] [address] Randi Cedeno MD Chart Prep 03/05/2025 Patient Outreach [address] [address] Randi Cedeno MD Pre-visit Planning (SDOH screening completed on 11/09/2024) 02/25/2025 Refill [facility] [address] [place] [phone] Randi Cedeno MD HTN (hypertension), benign from Last 3 Months Immunizations Immunization Administration Dates Next Due Influenza High-dose Quadriva [...] Sign Reading Time Taken Comments Blood Pressure 160/82 04/24/2025 9:39 AM EDT manual B/P Pulse 58 04/24/2025 9:38 AM EDT Temperature 36.4 C (97.6 F) 03/13/2025 9:09 AM EDT Respiratory Rate 16 04/24/2025 9:38 AM EDT Oxygen Saturation 97% 04/24/2025 9:3 8 AM EDT Inhaled Oxygen Concentration - - Weight 80.6 kg (177 lb 12.8 oz) 025 9:09 AM EDT Height 175.3 cm (5' 9 ) 03/13/2025 9:09 AM EDT Body Mass Index 26.26 03/13/2025 9:09 AM EDT Plan of Treatment Upcoming Encounters Date Type Department Care Team (Late st Contact Info) Description 06/25/2025 9:00 AM EDT Office Visit [facility] [address] [place], [place] [phone] Randi Cedeno MD [address] [place], [place] [phone] Health Maintenance Due Date Last Done Comments CT Colonography 1958 FIT DNA/Cologuard 1958 FIT 1958 FOBT 1958 Sigmoidoscopy 1958 Eye Exam 1968 Alcohol/Substance Use Screening 1970 DTaP/Tdap/Td Vaccines (1 - Tdap) 1977 Diabetes: Urine Protein Screening 1977 Hepatitis A Vaccines (1 of 2 - Risk 2-dose series) 1977 RSV Patients and Patients Aged 60 years or older (1 - Risk 60-74 years 1-dose series) 2018 COVID-19 Vaccine ( season) 2024 01/14/2021, 12/17/2020, 11/16/2020 Zoster Vaccines (2 of 2) 03/19/2025 01/22/2025 Influenza Vaccine (#1) 2025 , 06/21/2023, 06/11/2021, Additional history exists Depression Screening 07/09/2025 07/09/2024, 07/09/20 24 Diabetes: Hemoglobin A1C 09/13/2025 025, 07/09/2024, 04/05/2023, Additional history exists SDOH Screening 11/09/2025 11/09/2024 Tobacco Screening 11/09/2025 11/09/2024 Lipid Panel 11/15/2025 11/15/2024, 06/05, 03/10/2020 Diabetes: Foot Exam 03/13/2026 03/13/2025, 03/13/2025, 03/13/2025, Additional history exists Colonoscopy 12/24/2026 12/24/2021 Colorectal Cancer Screening 12/24/2026 Pneumococcal Vaccine: 50+ Years Completed 01/22/2025 HIB Vaccines Aged Out No longer eligi ble based on patient's age to complete this topic HPV Vaccines Aged Out No longer eligi ble based on patient's age to complete this topic Hepatitis B Vaccines Discontinued IPV Vaccines Aged Out No longer eligi ble based on patient's age to complete this topic Meningococcal B Vaccine Aged Out No l onger eligible based on patient's age to complete [...] Procedure Name Priority Date/Time Associated Diagnosis Comments ECG 12-LEAD Routine 03/13/2025 2:59 PM EDT Essential hypertension POCT GLYCATED HEMOGLOBIN, TOTAL Routine 03/13/2025 9:53 AM EDT IFG (impaired fasting glucose) POCT GLUCOSE Routine 03/13/2025 9:51 AM EDT IFG (impaired fasting glucose) LIPID PANEL WITH REFLEX TO DIRECT LDL Routine 11/15/2024 7:09 AM EDT Essential hypertension IFG (impaired fasting glucose) HM COLONOSCOPY Routine 12/24/2021 from Last 3 Months or Most Recently Relevant to Health Maintenance Results * ECG 12 lead (03/13/2025 2:59 PM EDT) Narrative Randi Cedeno MD - 03/13/2025 2:59 PM EDT NSR at 64 bpm, normal axis deviation. Few supraventricular complex. Unspecific lateral repolarization abnormalities. us Randi Cedeno MD ECG ORDERABLES Final Re sult * (ABNORMAL) POCT HGB A1C (03/13/2025 9:53 AM EDT) Hemoglobin A1C 6.9(A) 4.0 - 5.7 % QC Media Lot # [id number] Lot# Expiration Date Blood 03/13/2025 9:53 AM EDT Randi Cedeno MD POINT OF CARE TEST ENTER /EDIT ORDERABLES Final Result * POCT Glucose (03/13/2025 9:51 AM EDT) Glucose Blood, POC 176 60 - 200 mg/dL QC Media Lot # [id number] Lot# Expiration Date Blood Capillary blood specimen / Unknown 03/13/2025 9:51 AM EDT Randi Cedeno MD POINT OF CARE TEST ENTER /EDIT ORDERABLES Final Result * Lipid Panel with Reflex to Direct LDL (11/15/2024 7:09 AM EDT) Triglycerides 81 <150 mg/dL [facility] Comment:Desirable Triglyceri de: less than 150 mg/dLBorderline High Triglyceride 150-199 mg/dLHigh Triglyceride: 200-499 mg/dLVery High Triglyceride: greater than or equal to 5OO mg/dL Cholesterol 136 <200 mg/dL [facility] Comment:Desirable Cholestero l: less than 200 mg/dLBorderline High Cholesterol: 200-239 mg/dLHigh Cholesterol: greater than 239 mg/dL LDL Cholesterol Calculated 73 <100 mg/dL [facility] Comment:Desirable LDL: less than 100 mg/dLNear Optimal/Above Optimal LDL: 110- 129 mg/dLBorderline High LDL: 130-159 mg/dLHigh LDL: 160-189 mg/dLVery High LDL: greater than or equal to 190 mg/dL HDL Cholesterol 47 >40 mg/dL [facility] Comment:Desirable HDL: great er than 40 mg/dL Note: This HDL assay may give artificially low results in patients with liver disease. Blood 11/15/2024 7:09 AM EDT 11/15/2024 7:09 AM EDT Randi Cedeno MD LAB BLOOD ORDERABLES Fin al Result [facility] [address] [place] [address] [phone] * (ABNORMAL) Colonoscopy (12/24/2021) Colonoscopy Abnormal( A) Normal Comment:FH of CRC 12/24/2021 Randi Cedeno MD HEALTH MAINTENANCE Final Result from Last 3 Months or Most Recently Relevant to Health Maintenance Insurance [facility] [employer] HMO MEDICARE * Guarantor: Jeremy, Clyde Account Type Relation to Patient Date of Phone Billing Address Personal/Family Self [address] [facility] [address] [place] [id number] Care Teams Director [employer] Relationship Specialty Start Date End Date Randi Cedeno MD [address] [place] [phone] PCP - General Family Medicine 04/22/20
[2025-05-02 16:32] LABS: Hemoglobin A1C 177.0070 umol/L; Total Hemoglobin (HGBA1C) 3754.1154 umol/L
[2025-05-02 16:35] LABS: Anion Gap 13 (12-20); Blood Urea Nitrogen 29 mg/dL (9-16); Carbon Dioxide 23 mmol/L (22-29); Chloride 103 mmol/L (96-108); Estimated Glomerular Filt Rate > 60; Potassium 3.8 mmol/L (3.3-5.1); Sodium 135 mmol/L (135-145)
[2025-05-02 16:36] LABS: Alanine Aminotransferase 300 U/L (0-40); Albumin Level 3.7 g/dL (3.5-5.0); Alkaline Phosphatase 121 U/L (39-117); Aspartate Amino Transferase 169 U/L (5-37); Calcium 8.9 mg/dL (8.4-10.2); Gamma Glutamyl Transpeptidase 70 U/L (11-51); Total Protein 7.1 g/dL (6.5-8.0)
== END 2025-05-02 13:58 | disposition home or self-care (01) ==
LOC: HO.HHCL 13:57
PROVIDERS: PCP Internal Medicine; Visit Provider Internal Medicine
DX: K74.69 Other cirrhosis of liver (principal); R73.01 Impaired fasting glucose
CPT/HCPCS: 36415; 80053; 82105; 82977; 83036

== ENCOUNTER 2025-06-11 13:50 | Outpatient (AMB) | payer MEDICARE, SELFPAY ==
--- NOTE | 2025-06-11 14:06 | MHC.OFFVIS ---
Intake Visit Reasons: Nocturia, urinary frequency Intake Note: New patient presents today for initial visit for nocturia/urinary frequency Urology Medication:Sildenafil, Tamsulosin Blood Thinner:None Antibiotic Allergies:None PVR:134ml Allergies No Known Drug Allergies Allergy (Unknown, Verified 06/11/25 14:15) none SEASONAL ALLERGIES Allergy (Unknown, Uncoded 01/29/24 13:57) UNKNOWN HPI Comments Details: Clyde is a pleasant male. He is a patient of . He is seen for the following urologic conditions. - lower urinary tract symptoms Lower urinary tract symptoms Primarily irritative in nature Nocturia every 2 hours at night Control of urge during the day reasonable Does drink coffee in the evening Previously trialed tamsulosin Trial daily tadalafil plus terazosin Bladder ultrasound PSA PFSH Medical History Hepatitis Hyperglycemia Complications affecting other specified body systems, hypertension Surgical History History of colonoscopy Mass of ureter Family History Father No problems noted. Mother Family history of high blood pressure Social History Alcohol intake: never Patient Tobacco Use Status: Never used Tobacco Advance Directives Date on File: 06/12/20 Review of Systems Const Denies chills and Denies fever(s) Card Reports no additional complaints and Denies syncope Resp Denies cough GI Denies abdominal pain and Denies heartburn Reports as per HPI and Denies change in libido Neuro Denies syncope Psych Denies change in libido Endo Denies change in libido Physical Exam Const General: cooperative, healthy appearing, comfortable and no acute distress Orientation/consciousness: patient oriented x3 HEENT Face and sinus: Yes normal facial exam Mouth: moist mucous membranes Neck Neck: Yes normal visual inspection, Yes full ROM and Yes trachea midline Chest Chest palpation & inspection: normal inspection of the chest Resp Effort & Inspection: normal respiratory effort, able to speak in complete sentences and no respiratory distress GI Inspection: Yes normal to inspection Back/Spine/Pelvis Cervical Spine: normal cervical lordosis Thoracic/Lumbar Spine: thoracic and lumbar spine normal to inspection Skin General skin exam: no rashes or lesions noted Neuro General: patient oriented x3, gait normal, tone normal and moves all extremities Extrem General: Yes normal to inspection and Yes capillary refill normal Assessment & Plan Assessment & Plan (1) Nocturia more than twice per night: Code(s): R35.1 - Nocturia Category: Medical (2) Weak urinary stream: Code(s): R39.12 - Poor urinary stream Category: Medical (3) Bladder outlet obstruction: Code(s): N32.0 - Bladder-neck obstruction Category: Medical Plan Start tadalafil and terazosin Stop Tamsulosin Bladder ultrasound PSA Orders: Orders US bladder Today R35.1 - Nocturia PSA,Total (Free>4and<10) Today R35.1 - Nocturia Medications: New terazosin 5 mg PO BEDTIME 30 caps 1RF 30 days R35.1 - Nocturia tadalafil 5 mg PO DAILY 90 tabs 0RF 90 days R35.1 - Nocturia Patient Instructions: This note is constructed using voice recognition software. While every effort has been made to ensure accuracy luster applicator errors may have been included. Imaging studies, laboratory and physical exam results were discussed and reviewed in detail. No major barriers to patient understanding were identified. An opportunity to ask questions regarding the treatment plan was provided. All questions were answered. The patient expressed understanding and agreement with the above treatment plan. The patient is aware they should contact our office by phone for worsening of their current condition or the appearance of new urologic symptoms. Compliance is encouraged with any medications and followup testing that is ordered. It is a privilege to participate in the urologic care of your patient. If you have any questions or concerns regarding treatment for the above conditions, or other urologic issues, please do not hesitate to contact me. The office telephone contact is [phone]. Sincerely, Dr Remberto Collins MD, [facility] - Urology Compassionate Specialist Care for the Genitourinary System Coding Level of Care Code New Pt Level 4 (00663) Diagnoses Nocturia more than twice per night R35.1 Weak urinary stream R39.12 Bladder outlet obstruction N32.0
--- OUTSIDE RECORDS SUMMARY | 2025-06-11 17:04 | XMS_ITS | Encounter Summary ---
Author Organization [employer] Address [address] [facility] [address] [place] [address] Care Team Providers Care Boarder Hand Name Role Phone Randi Cedeno MD Primary Care Provider + Encounter Details Date Type Department Care Team (Late Contact Info) Description 08/24/2022 Orders Only [facility] [address], [place] [phone] Helga Gardiner LPN Social History Tobacco Use [...] Description 06/25/2025 9:00 AM EDT Office Visit [facility] [address], [place] [phone] Randi Cedeno MD [address] [place], [place] [phone] documented as of this encounter Procedures Procedure Name Priority Date/Time Associated Diagnosis Comments HIV ANTIBODY/ANTIGEN ([facility]) Routine 06/22/2023 9:21 AM EDT HCV [...] 9:21 AM EDT) Liver Fibrosis Score 0.84 [facility] Liver Fibrosis Stage F4 [facility] Liver Fibrosis Interpretation SEE NOTE [facility] Comment:severe fibrosisFibro Test Score (f) Metavir Score f>=0 and f<=0.21 : F0 (no fibrosis)f>0.21 and f<=0.27 : F0-F1 (no fibrosis)f>0.27 and f<=0.31 : F1 (minimal fibrosis)f>0.31 and f<=0.48 : F1-F2 (minimal fibrosis)f>0.48 and f<=0.58 : F2 (moderate fibrosis)f>0.58 and f<=0.72 : F3 (advanced fibrosis)f>0.72 and f<=0.74 : F3-F4 (advanced fibrosis)f>0.74 and f<=1.00 : F4 (severe fibrosis) Nec Inflam Act Score 0.88 [facility] Nec Inflam Act Grade A3 [facility] Nec Inflam Act Interpretation SEE NOTE [facility] Comment:severe activityActiT est Score (a) Metavir Score a>=0 and a<=0.17 : A0 (no activity)a>0.17 and a<=0.29 : A0-A1 (no activity)a>0.29 and a<=0.36 : A1 (minimal activity)a>0.36 and a<=0.52 : A1-A2 (minimal activity)a>0.52 and a<=0.60 : A2 (significant activity)a>0.60 and a<=0.62 : A2-A3 (significant activity)a>0.62 and a<=1.00 : A3 (severe activity) PKM-Fqxry-7-Macroglo bulin 329(A) 106 - 279 mg/dL [facility] FIB-Haptoglobin 11(A) 43 - 212 mg/dL [facility] FIB-Apolipoprotein A1 198(A) 94 - 176 mg/dL [facility] FIB-Total Bilirubin 0.9 0.2 - 1.2 mg/dL [facility] FIB-GGT 47 3 - 70 U/L [facility] FIB-ALT 167(A) 9 - 46 U/L [facility] Reference ID [id number] [facility] Footnote SEE NOTE [facility] Comment: The reliability of results [...] and C.The performance characteristics have been determined by[facility]. Ithas not been cleared or approved by the U.S. Food and DrugAdministration. Performance characteristics refer to theanalytical performance of the test.[employer], the associated logo, [employer] and all associated [employer]varez are theregistered trademarks of [employer]. All third partymarks - (R) and (TM) - are the property of their respectiveowners. (C) [id number] [employer]. Allrights reserved.THIS TEST WAS PERFORMED AT:[employer]/[id number] [place] [address]NTKETCANDY SHAH MD,PHD,LAUREN 06/22/2023 9:21 AM EDT 06/22/2023 9:33 AM EDT us Generic External Data Provider LAB BLOOD ORDERAB LES Final Result [facility] [address] [place] [phone] * RANDI Screen,IFA, with Reflex to Titer and Pattern (06/22/2023 9:21 AM EDT) Anti Nuclear Antibody Screen NEGATIVE NEGATIVE [facility] Comment:RANDI IFA is a first [...] clinicallysuspected inflammatory myopathies.AC-0: NegativeInternational Consensus on RANDI Patterns(https://doi.org/10.1515/ylaf-3520-7701)For additional information, please refer tohttp://education.Root4/faq/UUI252(This link is being provided for informational/educational purposes only.)THIS TEST WAS PERFORMED AT:[employer] [address] [address]VZKKYLINO MCGARRY MD RANDI Titer TNP [facility] RANDI Pattern TNP [facility] RANDI TITER 2 (REF LAB) TNP [facility] RANDI Pattern 2 TNP [facility] RANDI TITER 3 [facility] R[facility] PATTERN 3 [facility] 06/22/2023 9:21 AM EDT 06/22/2023 9:33 AM EDT [facility] External Provider LAB BLO OD ORDERABLES Final Result [facility] [address] [place] [address] [phone] * Actin (Smooth Muscle) Antibody (IgG) (06/22/2023 9:21 AM EDT) Smooth Muscle Antibody <20 <20 U [facility] Comment:Reference Range: <20 U: Negative>or=20 [...] with AIH type 1.THIS TEST WAS PERFORMED AT:[employer]/[id number] [place] [address]LRDHEETSCOTTIE MCKENNA MD,PHD 06/22/2023 9:21 AM EDT 06/22/2023 9:33 AM EDT Generic External Data Provider LAB BLOOD ORDERAB LES Final Result [facility] [address] [place] [address] [phone] * T-SPOT??.TB (06/22/2023 9:21 AM EDT) T Spot TB Negative Negative [facility] Comment:A negative test resu lt [...] as aquantitative test. TS PANEL A 0 [facility] TS PANEL B 0 [facility] Negative Control Passed [facility] Positive Control Passed [facility] Comment:For additional infor faviola, please refer tohttp://education.SimilarSites.com/faq/ZHO465(This link is being provided for informational/educational purposes only.)THIS TEST WAS PERFORMED AT:[employer]/[id number] [place] [address]VNROQXHSCOTTIE MCKENNA MD,PHD 06/22/2023 9:21 AM EDT 06/22/2023 9:33 AM EDT [facility] External Provider LAB BLO OD ORDERABLES Final Result [facility] [address] [place] [address] [phone] * (ABNORMAL) HCV RNA BY PCR, QN RFX GRACE (06/22/2023 9:21 AM EDT) HCV RNA PCR QN [id number]( A) NOT DETECTED IU/mL [facility] HCV RNA PCR QN 6.50(A) NOT DETECTED Log IU/mL [facility] HCV RNA COMMENT SEE NOTE [facility] Comment:This test was perfor med using Real-Time Polymerase ChainReaction.Reportable Range: 15 IU/mL to 100,000,000 IU/mL(1.18 Log IU/mL to 8.00 Log IU/mL).The analytical performance characteristics of this assayhave been determined by [employer]. Themodifications have not been cleared or approved by theFDA. This assay has been validated pursuant to the CLIARegulations and is used for clinical purposes.For more information on this test, go to:http://[employer].SimilarSites.com/faq/GPC86n4(This link is being provided for informational/Educational purposes only.)THIS TEST WAS PERFORMED AT:[employer] [place] [address]UBXNRLINO MCGARRY MD HCV RNA GENOTYPE,LIPA 1b [facility] Comment:The method used in t his test is RT-PCR and reversehybridization (Line Probe) of the 5' UTR and coreregion of the HCV genome.The analytical performance characteristics of thisassay have been determined by [place]. The modificationshave not been cleared or approved by the FDA. Thisassay has been validated pursuant to the CLIAregulations and is used for clinical purposes.For additional information, please refer tohttp://[employer].Root4/faq/HCVGenotyping(This link is being provided for informational/educational purposes only.)THIS TEST WAS PERFORMED AT:[employer]/[facility] [place] [address]RRAQUMJ W. MASON,MD,PHD 06/22/2023 9:21 AM EDT 06/22/2023 9:33 AM EDT [facility] External Provider LAB BLO OD ORDERABLES Final Result Performing Organization Address [facility] Co de Phone Number [facility] [address] [place] [address] [phone] * Mitochondrial Antibody with Reflex to Titer (06/22/2023 9:21 AM EDT) Mitochondrial Antibodies NEGATIVE NEGATIVE [facility] Comment:THIS TEST WAS PERFOR MED AT:[employer] [address] [address]ECHSLEDIE MCGARRY MD Mitochondrial Ab Titer TNP [facility] 06/22/2023 9:21 AM EDT 06/22/2023 9:33 AM EDT [facility] External Provider LAB BLO OD ORDERABLES Final Result Performing Organization Address [facility] de Phone Number [facility] [address] [place] [phone] * Alpha-Fetoprotein, Tumor Marker (06/22/2023 9:21 AM EDT) Pathologist [facility] Alpha Fetoprotein 4.8 <6.1 ng/mL [facility] Comment:This test was perfor med using the Jesús Coulterchemiluminescent method. Values obtained fromdifferent assay methods cannot be usedinterchangeably. AFP levels, regardless ofvalue, should not be interpreted as absoluteevidence of the presence or absence of disease.THIS TEST WAS PERFORMED AT:[employer] [address] [address]MFDWYEDIE MCGARRY MD 06/22/2023 9:21 AM EDT 06/22/2023 9:33 AM EDT [facility] External Provider LAB BLO OD ORDERABLES Final Result Performing Organization Address [facility]/ZIP Co de Phone Number [facility] [address] [place] [address] [phone] * HIV Ab/Ag (DUSTIN DP) (06/22/2023 9:21 AM EDT) HIV AB/AG Nonreactive Nonreactive [facility] Comment:HIV-1 p24 Ag and/or HIV-1/HIV-2 Ab not detected.A test result that is nonreactive does not exclude thepossibility of exposure to or infection with HIV-1 and/orHIV-2. Nonreactive results in this assay for individualswith prior exposure to HIV-1 and/or HIV-2 may be due toantigen and antibody levels that are below the limit ofdetection of this assay.The [employer] HIV Ag/Ab Combo assay result andsupplemental assay results should be interpreted inconjunction with the patient's clinical presentation,history and other laboratory results. If the results areinconsistent with clinical evidence, additional testing issuggested to confirm the result. 06/22/2023 9:21 AM EDT 06/22/2023 9:33 AM EDT us Generic External Data Provider LAB BLOOD ORDERAB LES Final Result Performing Organization Address [facility] Co de Phone Number [facility] [address] [place] [address] [phone] * (ABNORMAL) Hepatitis Panel, General (06/22/2023 9:21 AM EDT) Hepatitis A IgM Nonreactive Nonreactive [facility] Comment:IgM antibodies to LIM V not detected; does not exclude earlyacute or recovered HAV infection. ~Hepatitis B Surface Antibody REACTIVE Nonreactive [facility] Comment:REACTIVE: > 11.99 mI U/mL Hepatitis B Core Antibody Reactive Nonreactive [facility] Comment:Presumptive evidence of anti-HBc. Hepatitis C Antibody Reactive(A) Nonreactive [facility] Comment:Presumptive evidence of antibodies to HCV. Hepatitis B Surface Ag Negative Negative [facility] 06/22/2023 9:21 AM EDT 06/22/2023 9:33 AM EDT [facility] External Provider LAB BLO OD ORDERABLES Final Result Performing Organization Address City/[facility]/ZIP Co de Phone Number [facility] [address] [place] [address] [phone] * (ABNORMAL) Ferritin (06/22/2023 9:21 AM EDT) Ferritin 253(H) 20 - 250 ng/mL [facility] 06/22/2023 9:21 AM EDT 06/22/2023 9:33 AM EDT Generic External Data Provider LAB BLOOD ORDERAB LES Final Result Performing Organization Address [facility]/ZIP Co de Phone Number [facility] [address] [place] [address] [phone] * (ABNORMAL) Comprehensive Metabolic Panel (06/22/2023 9:21 AM EDT) Sodium 136 135 - 145 mmol/L [facility] Potassium 4.1 3.3 - 5.1 mmol/L [facility] Chloride 104 96 - 108 mmol/L [facility] Carbon Dioxide 23 22 - 29 mmol/L [facility] Anion Gap 13 12 - 20 [facility] Urea Nitrogen (BUN) 26(H) 9 - 16 mg/dL [facility] Creatinine, Serum 0.88 0.5 - 1.4 mg/dL [facility] Estimated Glomerular Filt Rate >60 [facility] Comment:NOTE: For -Am erican individuals, multiply the result by 1.210.Chronic Kidney Disease: Estimated GFR < 60 mL/min/1.48a7Ahuxvm Kidney Disease: Estimated GFR < 15 mL/min/1.73m2 Glucose 142(H) 60 - 115 mg/dL [facility] Calcium 9.2 8.4 - 10.2 mg/dL [facility] Bilirubin, Total 1.0 0.0 - 1.0 mg/dL [facility] Aspartate Amino Transferase 114(H) 5 - 37 U/L [facility] Alanine Aminotransferase 196(H) 0 - 40 U/L [facility] Total Protein 7.1 6.5 - 8.0 g/dL [facility] Albumin Level 3.8 3.5 - 5.0 g/dL [facility] Alkaline Phosphatase 99 39 - 117 U/L [facility] 06/22/2023 9:21 AM EDT 06/22/2023 9:33 AM EDT us [facility] External Provider LAB BLO OD ORDERABLES Final Result [facility] [address], [place] [phone] * (ABNORMAL) CBC auto differential (06/22/2023 9:21 AM EDT) White Blood Count 4.3(L) 4.8 - 10.8 X10*3/uL [facility] Red Blood Count 4.73 4.60 - 5.80 X10*6/uL [facility] Hemoglobin 14.9 14.0 - 18.0 g/dl [facility] Hematocrit 42.5 42.0 - 52.0 % [facility] Mean Corpuscular Volume 89.9 80.0 - 98.0 fL [facility] Mean Corpuscular Hemoglobin 31.5 27.0 - 33.0 pg [facility] Mean Corpuscular HGB Conc 35.1 31.0 - 36.0 g/dl [facility] Red Cell Distribution Width 11.8 11.0 - 16.0 % [facility] Platelet Count 116(L) 160 - 400 X10*3/uL [facility] Mean Platelet Volume 10.8 9.4 - 12.4 fL [facility] Neutrophils Percent Auto 61.1 45 - 73 % [facility] Imm Gran Pct Auto 0.2 0.0 - 0.4 % [facility] Lymphocytes Percent Auto 22.4 20 - 40 % [facility] Monocytes Percent Auto 13.5(H) 2 - 11 % [facility] Eosinophils Percent Auto 2.3 0 - 4 % [facility] Basophils Percent Auto 0.5 0 - 2 % [facility] NRBC Pct Auto 0.0 0.0 - 0.2 /100WBC [facility] Neutrophils Absolute Auto 2.6 2.0 - 8.3 x10*3/uL [facility] Imm Gran Abs Auto 0.01 0.00 - 0.03 X10*3/uL [facility] Lymphocytes Absolute Auto 1.0(L) 1.2 - 4.9 X10*3/uL [facility] Monocytes Absolute Auto 0.6 0.1 - 1.2 X10*3/uL [facility] Eosinophils Absolute Auto 0.1 0.0 - 0.4 X10*3/uL [facility] Basophils Absolute Auto 0.0 0.0 - 0.2 X10*3/uL [facility] NRBC Abs Auto 0.000 0.0 - 0.012 X10*3/uL [facility] 06/22/2023 9:21 AM EDT 06/22/2023 9:33 AM EDT us [facility] External Provider LAB BLO OD ORDERABLES Final Result [facility] [address] [place] [address] [phone] documented in this encounter Visit Diagnoses Not on filedocumented in this encounter Care Teams Boarder Hand Relationship Specialty Start Date End Date Randi Cedeno MD [address] [place] [phone] PCP - General Family Medicine 04/22/20 documented as of this encounter
--- OUTSIDE RECORDS SUMMARY | 2025-06-11 17:04 | XMS_ITS | Encounter Summary ---
Author Organization [employer] Address [address] [facility] [address] [place] [address] Care Team Providers Care [employer] Name Role Phone Randi Cedeno MD Primary Care Provider + Encounter Details Date Type Department Care Team ([facility] Contact Info) Description 05/01/2025 Orders Only [facility] [address], [place] [phone] Rosy Toure MD [address] [place], [place] [phone] Social History Tobacco Use Types Packs/Day Years [...] Description 06/25/2025 9:00 AM EDT Office Visit [facility] [address] [place] [phone] Randi Cedeno MD [address] [place] [phone] documented as of this encounter Visit Diagnoses Not on filedocumented in this encounter Additional Health Concerns Assessment Noted Time PHQ-9 Depression Total Score: 0 07/09/20 24 1:15 PM EST documented as of this encounter Care Teams [employer] Relationship Specialty Start Date End Date Randi Cedeno MD [address] [place] [phone] PCP - General Family Medicine 04/22/20 documented as of this encounter
--- OUTSIDE RECORDS SUMMARY | 2025-06-11 17:04 | XMS_ITS | Clinical Summary ---
Author Organization [email or web address] Address [address] [facility] [address] [place] [address] Care Team Providers Care Mrb Engineer Name Role Phone Randi Cedeno MD Primary Care Provider + Allergies Active Allergy Reactions Criticality Noted Date Comments Jey Inhibitors Cough 10/06/2021 Medications acetaminophen (Tylenol) 500 MG tablet take 1 tablet by oral route every6 -8 hours as needed not to exceed 4 tablets per 24hrs 07/28/2022 Active loteprednol (Lotemax) 0.5 % ophthalmic suspension SHAKE LIQUID AND INSTILL 1 DROP IN RIGHT EYE DAILY FOR 1 WEEK. CALL IF SYMPTOMS PERSIST OR WORSEN 06/20/2024 Active tamsulosin (Flomax) 0.4 MG 24 hr capsuleIndicati ons:Lower urinary tract symptoms (LUTS) Take 1 capsule (0.4 mg) by mouth at bedtime. 90 capsule 2 11/09/2024 11/10/19 26 Active FREESTYLE LITE test strip Use to test blood sugar 1x times daily 100 each 12 03/13/2025 03/13/20 26 Active Lancets misc Use to test blood sugar 1x times daily 100 each 11 03/13/2025 Active Alcohol Swabs 70 % pads Use to test blood sugar 1x times daily 100 each 3 03/13/2025 Active Blood Glucose Monitoring Suppl (FreeStyle [place] Lite) w/Device kit Use to test blood sugar 1x times daily 1 kit 03/13/2025 Active Blood Glucose Monitoring Suppl (FreeStyle Lite) device Inject 1 each under the skin Use as directed. Please use to check blood sugar once daily. 1 each 03/13/2025 Active Blood Glucose Monitoring Suppl (Accu-Chek Guide Me) w/Device kitIndications: Type 2 diabetes mellitus without complication, without long-term current use of insulin (HCC) USE TO TEST BLOOD SUGAR ONCE A DAY 1 kit 2025 Active glucose blood (Accu-Chek Guide Test) test stripIndication s:Type 2 diabetes mellitus without complication, without long-term current use of insulin (HCC) USE TO TEST BLOOD SUGAR ONCE A DAY 100 each 3 2025 03/14/20 26 Active Accu-Chek Softclix Lancets lancetsIndicati ons:Type 2 diabetes mellitus without complication, without long-term current use of insulin (HCC) USE TO TEST BLOOD SUGAR ONCE A DAY 100 each 3 2025 03/14/20 26 Active losartan-hydroC HLOROthiazide (Hyzaar) 100-25 MG tablet Take 1 tablet by mouth Once per day. 90 tablet 3 05/01/2025 05/01/20 26 Active Active Problems Problem Noted Date Diagnosed Date [...] obtain information from this year visit to [facility] eye clinic (Dr. Castro) Foot examination is [...] week and drop BP log at the supervisor front or send it to us via [employer]. Continue losartan HCTZ, order labs. Reminded him [...] smoking patient. Cough 04/01/2023 Cirrhosis of liver (CMS/HCC) 04/01/2023 Assessment & Plan (03/13/2025 10:34 AM [...] to Influenza vax today. Chronic hepatitis C (CMS/HCC) 04/01/2023 Assessment & Plan (11/09/2024 12:41 PM EST): Failed IFN and Epclusa. Followed by GI but unable to afford copayment for new treatment. He has the phone number of copayment assistance program: #[phone] , I reminded him to call and follow-up with GI for EGD, if no rx is possible bc access $$$, I will refer him to [facility] GI. 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 Referred to [facility] GI but he's unable to afford copayment for Vosevi I gave him infor copayment assistance program: #[phone] for him to call and fu with GI on Aug. If no rx is possible bc access $$$, I will refer him to [facility] GI. He's Hep A/B immune (previous Hep [...] Encounters Date Type Department Care Team Description 05/10/2025 Results Follow-Up [address] [address] Randi Cedeno MD POCT Glucose, POCT HGB A1C, Comprehensive Metabolic Panel, Additional followed-up results: 2 05/01/2025 Orders Only [facility] [place] [address] Rosy Toure MD 04/24/2025 9:30 AM EDT Clinical Support [address] [facility] [place] [address] Garfield Devi RN HTN (hypertension), benign 04/24/2025 Travel 03/27/2025 9:30 AM EDT Clinical Support [facility] [place] [address] Garfield Devi RN HTN (hypertension), benign 03/27/2025 Travel 03/19/[address] [facility] [address] [place] [address] Randi Cedeno MD DME for compression stockings [address] [facility] [address] [place], [place] [phone] Randi Cedeno MD Type 2 diabetes mellitus without complication, without long-term current use of insulin (CMS/HCC) 03/13/2025 9:15 AM EDT Office Visit [facility] [address] [place] [address] Randi Cedeno MD IFG (impaired fasting glucose) (Primary Dx); Essential hypertension; Other cirrhosis of liver (CMS/HCC); Lower urinary tract symptoms (LUTS); Varicose veins of both lower extremities with pain 03/13/[address] [facility] [address] [place] [address] Randi Cedeno MD 03/13/2025 Travel 03/11/[address] [facility] [address] [place], [place] [phone] Randi Cedeno MD Chart Prep from Last 3 Months Immunizations Immunization Administration [...] Description 06/25/2025 9:00 AM EDT Office Visit [facility] [address] [place] [address] Randi Cedeno MD [address] [place] [address] Health Maintenance Due Date Last Done Comments [...] - Risk 60-74 years 1-dose series) 2018 Zoster Vaccines (2 of 2) 03/19/2025 01/22/2025 COVID-19 Vaccine ( - 2024- season) 2025 01/14/2021, 12/17/2020, 11/16/2020 Influenza Vaccine (#1) 2025 , 06/21/2023, 06/11/2021, Additional history exists Depression Screening 07/09/2025 07/09/2024, 07/09/20 24 Diabetes: Hemoglobin A1C 11/02/202505/02/2 025, 03/13/2025, 07/09/2024, Additional history exists SDOH Screening 11/09/2025 11/09/2024 [...] Procedure Name Priority Date/Time Associated Diagnosis Comments GGT Routine 05/02/2025 2:04 PM EDT Other cirrhosis of liver (CMS/HCC) ALPHA FETOPROTEIN, TUMOR MARKER Routine 05/02/2025 2:04 PM EDT Other cirrhosis of liver (CMS/HCC) COMPREHENSIVE METABOLIC PANEL Routine 05/02/2025 2:04 PM EDT Other cirrhosis of liver (CMS/HCC) HEMOGLOBIN A1C Routine 05/02/2025 2:04 PM EDT IFG (impaired fasting glucose) ECG 12-LEAD Routine 03/13/2025 2:59 PM EDT [...] Recently Relevant to Health Maintenance Results * Alpha-Fetoprotein, Tumor Marker (05/02/2025 2:04 PM EDT) Alpha Fetoprotein 4.7 <6.1 ng/mL [facility] Comment:This test was perfor med using the Jesús Coulterchemiluminescent method. Values obtained fromdifferent assay methods cannot be usedinterchangeably. AFP levels, regardless ofvalue, should not be interpreted as absoluteevidence of the presence or absence of disease.THIS TEST WAS PERFORMED AT:[employer] [place] [phone] MCGARRY MD Blood Venous blood specimen / Unknown 05/02/2025 2:04 PM EDT 05/02/2025 4:11 PM EDT Randi Cedeno MD LAB BLOOD ORDERABLES Fin al Result Performing Organization Address [facility]/ZIP Co de Phone Number [facility] [address] [place] [phone] * (ABNORMAL) Hemoglobin A1c (05/02/2025 2:04 PM EDT) Hemoglobin A1c 6.5(H) <6.0 % [facility] Comment:Hemoglobin A1C Refer ence Range Adults: 4.8 - 6.0 % Non diabetic: < 6.0 % Goal: < 7.0 %Additional Action Suggested: > 8.0 %Note: Hemoglobin A1c results are invalid for patients with abnormal amounts of HbF. Blood transfusions may impact the HbA1c concentration in the patient sample. Estimated Average Glucose 140 mg/dL [facility] Comment:eAG = Estimated ave rage glucose which is %A1C expressed asaverage glucose, using the formula of the X4H-ZvzrbabOhcchkb Glucose study (ADAG), Diabetes Care, Vol.31,#8,Apr. 2007 Blood Venous blood specimen / Unknown 05/02/2025 2:04 PM EDT 05/02/2025 4:06 PM EDT Randi Cedeno MD LAB BLOOD ORDERABLES Fin al Result Performing Organization Address [facility]/ZIP Co de Phone Number [facility] [address] [place] [phone] * (ABNORMAL) Gamma Glutamyl Transferase (GGT) (05/02/2025 2:04 PM EDT) Gamma Glutamyl Transpeptidase 70(H) 11 - 51 U/L [facility] Blood Venous blood specimen / Unknown 05/02/2025 2:04 PM EDT 05/02/2025 4:11 PM EDT Randi Cedeno MD LAB BLOOD ORDERABLES Fin al Result [facility] [address] [place] [phone] * (ABNORMAL) Comprehensive Metabolic Panel (05/02/2025 2:04 PM EDT) Sodium 135 135 - 145 mmol/L [facility] Potassium 3.8 3.3 - 5.1 mmol/L [facility] Chloride 103 96 - 108 mmol/L [facility] Carbon Dioxide 23 22 - 29 mmol/L [facility] Anion Gap 13 12 - 20 [facility] Urea Nitrogen (BUN) 29(H) 9 - 16 mg/dL [facility] Creatinine, Serum 1.20 0.5 - 1.4 mg/dL [facility] Estimated Glomerular Filt Rate >60 [facility] Comment:Chronic Kidney Disea se: Estimated GFR < 60 mL/min/1.38h9Ucyesc Kidney Disease: Estimated GFR < 15 mL/min/1.73m2 Glucose 132(H) 60 - 115 mg/dL [facility] Calcium 8.9 8.4 - 10.2 mg/dL [facility] Bilirubin, Total 0.6 0.0 - 1.0 mg/dL [facility] Aspartate Amino Transferase 169(H) 5 - 37 U/L [facility] Alanine Aminotransferase 300(H) 0 - 40 U/L [facility] Total Protein 7.1 6.5 - 8.0 g/dL [facility] Albumin Level 3.7 3.5 - 5.0 g/dL [facility] Alkaline Phosphatase 121(H) 39 - 117 U/L [facility] Blood Venous blood specimen / Unknown 05/02/2025 2:04 PM EDT 05/02/2025 4:[address] [facility] Randi Cedeno MD LAB BLOOD ORDERABLES Fin al Result [facility] [address] [place] [phone] * ECG 12 lead (03/13/2025 2:59 PM EDT) Narrative Randi Cedeno MD - 03/13/2025 2:59 PM EDT NSR at 64 bpm, normal axis deviation. Few supraventricular complex. Unspecific lateral repolarization abnormalities. Result [facility] Randi Cedeno MD ECG ORDERABLES Final Re sult * (ABNORMAL) POCT HGB A1C (03/13/2025 9:53 AM EDT) Hemoglobin A1C 6.9(A) 4.0 - 5.7 % [employer] Lot # [id number] Lot# Expiration Date Blood 03/13/2025 9:[address] [facility] Randi Cedeno MD POINT OF CARE TEST ENTER /EDIT ORDERABLES Final Result * POCT Glucose (03/13/2025 9:51 AM EDT) Glucose Blood, POC 176 60 - 200 mg/dL [employer] Lot # [id number] Lot# Expiration Date [id number] Blood Capillary blood specimen / Unknown 03/13/2025 9:51 AM EDT Randi Cedeno MD POINT OF CARE TEST ENTER /EDIT ORDERABLES Final Result * Lipid Panel with Reflex to Direct LDL (11/15/2024 7:09 AM EDT) Triglycerides 81 <150 mg/dL [facility] Comment:Desirable Triglyceri de: less than 150 mg/dLBorderline High Triglyceride 150-199 mg/dLHigh Triglyceride: 200-499 mg/dLVery High Triglyceride: greater than or equal to 5OO mg/dL Cholesterol 136 <200 mg/dL [facility] Comment:Desirable Cholestero l: less than 200 mg/dLBorderline High Cholesterol: 200-239 mg/dLHigh Cholesterol: greater than 239 mg/dL LDL Cholesterol Calculated 73 <100 mg/dL [facility] Comment:Desirable LDL: less than 100 mg/dLNear Optimal/Above Optimal LDL: 110- 129 mg/dLBorderline High LDL: 130-159 mg/dLHigh LDL: 160-189 mg/dLVery High LDL: greater than or equal to 190 mg/dL HDL Cholesterol 47 >40 mg/dL [facility] Comment:Desirable HDL: great er than 40 mg/dL Note: This HDL assay may give artificially low results in patients with liver disease. Blood 11/15/2024 7:09 AM EDT 11/15/2024 7:09 AM EDT us Randi Cedeno MD LAB BLOOD ORDERABLES Fin al Result [facility] [address] [place] [phone] * (ABNORMAL) Hm Colonoscopy (12/24/2021) Colonoscopy Abnormal( A) Normal Comment:FH of CRC 12/24/2021 us Randi Cedeno MD HEALTH MAINTENANCE Final Result from Last 3 Months or Most Recently Relevant to Health Maintenance Insurance [facility] [employer]AGE HMO [place] [id number] Care Teams Mrb Engineer Relationship Specialty Start Date End Date Randi Cedeno MD [address] [place] [phone] PCP - General Family Medicine 04/22/20
== END 2025-06-11 14:40 | disposition home or self-care (01) ==
LOC: HO.HUSH 13:50
PROVIDERS: PCP Internal Medicine; Visit Provider Urology
DX: R35.1 Nocturia (principal); R39.12 Poor urinary stream; N32.0 Bladder-neck obstruction; Z13.9 Encounter for screening, unspecified
CPT/HCPCS: 99204

== ENCOUNTER → 2025-06-11 13:50 | Outpatient (BNVA) | payer MEDICARE, SELFPAY | PROVIDERS: PCP Internal Medicine; Visit Provider Urology | DX: R35.1 Nocturia (principal); R39.12 Poor urinary stream; N32.0 Bladder-neck obstruction | CPT/HCPCS: 51798; 81003; 99202 ==

== ENCOUNTER 2025-06-24 08:55 | Outpatient (REF) | payer MEDICARE, SELFPAY ==
--- OUTSIDE RECORDS SUMMARY | 2025-06-24 10:01 | XMS_ITS | Encounter Summary ---
Author Organization [employer] Address [address] [facility] [address] [place] [address] Care Team Providers Care Tire Trimmer Hand Name Role Phone Randi Cedeno MD Primary Care Provider + Encounter Details Date Type Department Care Team ([facility] Contact Info) Description 05/01/2025 Orders Only [facility] [address] [place], [place] [phone] Rosy Toure MD [address] [place], [place] [phone] Social History Tobacco Use Types Packs/Day Years [...] Description 06/25/2025 9:00 AM EDT Office Visit [facility] [address] [place] [phone] Randi Cedeno MD [address] [place] [phone] documented as of this encounter Visit Diagnoses Not on filedocumented in this encounter Additional Health Concerns Assessment Noted Time PHQ-9 Depression Total Score: 0 07/09/20 24 1:15 PM EST documented as of this encounter Care Teams Tire Trimmer Hand Relationship Specialty Start Date End Date Randi Cedeno MD [address] [place] [phone] PCP - General Family Medicine 04/22/20 documented as of this encounter
--- OUTSIDE RECORDS SUMMARY | 2025-06-24 10:01 | XMS_ITS | Encounter Summary ---
Author Organization [employer] Address [address] [facility] [address] [place] [address] Care Team Providers Care Roving Carrier Name Role Phone Randi Cedeno MD Primary Care Provider + Encounter Details Date Type Department Care Team (Late Contact Info) Description 08/24/2022 Orders Only [facility] [address], [place] [phone] Helga Gardiner LPN Social History Tobacco Use [...] Description 06/25/2025 9:00 AM EDT Office Visit [facility] [address], [place] [phone] Randi Cedeno MD [address] [place], [place] [phone] documented as of this encounter Procedures Procedure Name Priority Date/Time Associated Diagnosis Comments HIV ANTIBODY/ANTIGEN ([facility]) Routine 06/22/2023 9:21 AM EDT HCV RNA [...] 9:21 AM EDT) Liver Fibrosis Score 0.84 [facility] Liver Fibrosis Stage F4 [facility] Liver Fibrosis Interpretation SEE NOTE [facility] Comment:severe fibrosisFibro Test Score (f) Metavir Score f>=0 and f<=0.21 : F0 (no fibrosis)f>0.21 and f<=0.27 : F0-F1 (no fibrosis)f>0.27 and f<=0.31 : F1 (minimal fibrosis)f>0.31 and f<=0.48 : F1-F2 (minimal fibrosis)f>0.48 and f<=0.58 : F2 (moderate fibrosis)f>0.58 and f<=0.72 : F3 (advanced fibrosis)f>0.72 and f<=0.74 : F3-F4 (advanced fibrosis)f>0.74 and f<=1.00 : F4 (severe fibrosis) Nec Inflam Act Score 0.88 [facility] Nec Inflam Act Grade A3 [facility] Nec Inflam Act Interpretation SEE NOTE [facility] Comment:severe activityActiT est Score (a) Metavir Score a>=0 and a<=0.17 : A0 (no activity)a>0.17 and a<=0.29 : A0-A1 (no activity)a>0.29 and a<=0.36 : A1 (minimal activity)a>0.36 and a<=0.52 : A1-A2 (minimal activity)a>0.52 and a<=0.60 : A2 (significant activity)a>0.60 and a<=0.62 : A2-A3 (significant activity)a>0.62 and a<=1.00 : A3 (severe activity) OFE-Viufo-2-Macroglo bulin 329(A) 106 - 279 mg/dL [facility] FIB-Haptoglobin 11(A) 43 - 212 mg/dL [facility] FIB-Apolipoprotein A1 198(A) 94 - 176 mg/dL [facility] FIB-Total Bilirubin 0.9 0.2 - 1.2 mg/dL [facility] FIB-GGT 47 3 - 70 U/L [facility] FIB-ALT 167(A) 9 - 46 U/L [facility] Reference ID [id number] [facility] Footnote SEE NOTE [facility] Comment: The reliability of results is [...] and C.The performance characteristics have been determined by[employer] [facility]. Ithas not been cleared or approved by the U.S. Food and DrugAdministration. Performance characteristics refer to theanalytical performance of the test.[employer], the associated logo, [employer] and all associated [employer] alvarez are theregistered trademarks of [employer]. All third partymarks - (R) and (TM) - are the property of their respectiveowners. (C) [id number] [employer]. Allrights reserved.THIS TEST WAS PERFORMED AT:[facility] [id number] [place] [address]AMRLACANDY SHAH MD,PHD,LAUREN 06/22/2023 9:21 AM EDT 06/22/2023 9:33 AM EDT us Generic External Data Provider LAB BLOOD ORDERAB LES Final Result [facility] [address] [place] [phone] * RANDI Screen,IFA, with Reflex to Titer and Pattern (06/22/2023 9:21 AM EDT) Anti Nuclear Antibody Screen NEGATIVE NEGATIVE [facility] Comment:RANDI IFA is a first l [...] clinicallysuspected inflammatory myopathies.AC-0: NegativeInternational Consensus on RANDI Patterns(https://doi.org/10.1515/yses-3571-4237)For additional information, please refer tohttp://education.LawyerPaid/faq/HEK279(This link is being provided for informational/educational purposes only.)THIS TEST WAS PERFORMED AT:[facility] [address] [address]MEQGGLINO MCGARRY MD RANDI Titer TNP [facility] RANDI Pattern TNP [facility] RANDI TITER 2 (REF LAB) TNP [facility] RANDI Pattern 2 TNP [facility] RANDI TITER 3 [facility] R[facility]I PATTERN 3 [facility] 06/22/2023 9:21 AM EDT 06/22/2023 9:33 AM EDT [facility] External Provider LAB BLO OD ORDERABLES Final Result [facility] [address] [place] [phone] * Actin (Smooth Muscle) Antibody (IgG) (06/22/2023 9:21 AM EDT) Smooth Muscle Antibody <20 <20 U [facility] Comment:Reference Range: <20 U: Negative>or=20 U: [...] with AIH type 1.THIS TEST WAS PERFORMED AT:[facility] [place] [address]SCCKQLWSCOTTIE MCKENNA MD,PHD 06/22/2023 9:21 AM EDT 06/22/2023 9:33 AM EDT Generic External Data Provider LAB BLOOD ORDERAB LES Final Result [facility] [address] [place] [address] [phone] * T-SPOT??.TB (06/22/2023 9:21 AM EDT) T Spot TB Negative Negative [facility] Comment:A negative test resu lt does [...] as aquantitative test. TS PANEL A 0 [facility] TS PANEL B 0 [facility] Negative Control Passed [facility] Positive Control Passed [facility] Comment:For additional infor faviola, please refer tohttp://education.Farecast/faq/IKM536(This link is being provided for informational/educational purposes only.)THIS TEST WAS PERFORMED AT:[facility]/[id number] [place] [address]UGBSIKISCOTTIE MCKENNA MD,PHD 06/22/2023 9:21 AM EDT 06/22/2023 9:33 AM EDT [facility] External Provider LAB BLO OD ORDERABLES Final Result [facility] [address] [place] [address] [phone] * (ABNORMAL) HCV RNA BY PCR, QN RFX GRACE (06/22/2023 9:21 AM EDT) HCV RNA PCR QN [id number]( A) NOT DETECTED IU/mL [facility] HCV RNA PCR QN 6.50(A) NOT DETECTED Log IU/mL [facility] HCV RNA COMMENT SEE NOTE [facility] Comment:This test was perfor med using Real-Time Polymerase ChainReaction.Reportable Range: 15 IU/mL to 100,000,000 IU/mL(1.18 Log IU/mL to 8.00 Log IU/mL).The analytical performance characteristics of this assayhave been determined by [employer]. Themodifications have not been cleared or approved by theFDA. This assay has been validated pursuant to the CLIARegulations and is used for clinical purposes.For more information on this test, go to:http://A vida é feita de [place].Farecast/faq/VFB93h5(This link is being provided for informational/Educational purposes only.)THIS TEST WAS PERFORMED AT:[facility] [place] [address]URTWQLINO MCGARRY MD HCV RNA GENOTYPE,LIPA 1b [facility] Comment:The method used in t his test is RT-PCR and reversehybridization (Line Probe) of the 5' UTR and coreregion of the HCV genome.The analytical performance characteristics of thisassay have been determined by [employer] TechnologiesLa [place], [place]. The modificationshave not been cleared or approved by the FDA. Thisassay has been validated pursuant to the CLIAregulations and is used for clinical purposes.For additional information, please refer tohttp://A vida é feita de [place].LawyerPaid/faq/HCVGenotyping(This link is being provided for informational/educational purposes only.)THIS TEST WAS PERFORMED AT:[facility] [place] [address]HUWWYLP W. MASON,MD,PHD 06/22/2023 9:21 AM EDT 06/22/2023 9:33 AM EDT [facility] External Provider LAB BLO OD ORDERABLES Final Result Performing Organization Address [facility] Co de Phone Number [facility] [address] [place] [address] [phone] * Mitochondrial Antibody with Reflex to Titer (06/22/2023 9:21 AM EDT) Mitochondrial Antibodies NEGATIVE NEGATIVE [facility] Comment:THIS TEST WAS PERFOR MED AT:[facility] [address] [address]SFLMREDIE MCGARRY MD Mitochondrial Ab Titer TNP [facility] 06/22/2023 9:21 AM EDT 06/22/2023 9:33 AM EDT [facility] External Provider LAB BLO OD ORDERABLES Final Result Performing Organization Address [facility] de Phone Number [facility] [address] [place] [phone] * Alpha-Fetoprotein, Tumor Marker (06/22/2023 9:21 AM EDT) Pathologist [facility] Alpha Fetoprotein 4.8 <6.1 ng/mL [facility] Comment:This test was perfor med using the Jesús Coulterchemiluminescent method. Values obtained fromdifferent assay methods cannot be usedinterchangeably. AFP levels, regardless ofvalue, should not be interpreted as absoluteevidence of the presence or absence of disease.THIS TEST WAS PERFORMED AT:[facility] [address] [address]NNCDPEDIE MCGARRY MD 06/22/2023 9:21 AM EDT 06/22/2023 9:33 AM EDT [facility] External Provider LAB BLO OD ORDERABLES Final Result Performing Organization Address [facility]/ZIP Co de Phone Number [facility] [address] [place] [phone] * HIV Ab/Ag (DUSTIN DP) (06/22/2023 9:21 AM EDT) HIV AB/AG Nonreactive Nonreactive [facility] Comment:HIV-1 p24 Ag and/or HIV-1/HIV-2 Ab not detected.A test result that is nonreactive does not exclude thepossibility of exposure to or infection with HIV-1 and/orHIV-2. Nonreactive results in this assay for individualswith prior exposure to HIV-1 and/or HIV-2 may be due toantigen and antibody levels that are below the limit ofdetection of this assay.The [place] [facility] HIV Ag/Ab Combo assay result andsupplemental assay results should be interpreted inconjunction with the patient's clinical presentation,history and other laboratory results. If the results areinconsistent with clinical evidence, additional testing issuggested to confirm the result. 06/22/2023 9:21 AM EDT 06/22/2023 9:33 AM EDT us Generic External Data Provider LAB BLOOD ORDERAB LES Final Result Performing Organization Address [facility] Co de Phone Number [facility] [address] [place] [address] [phone] * (ABNORMAL) Hepatitis Panel, General (06/22/2023 9:21 AM EDT) Hepatitis A IgM Nonreactive Nonreactive [facility] Comment:IgM antibodies to LIM V not detected; does not exclude earlyacute or recovered HAV infection. ~Hepatitis B Surface Antibody REACTIVE Nonreactive [facility] Comment:REACTIVE: > 11.99 mI U/mL Hepatitis B Core Antibody Reactive Nonreactive [facility] Comment:Presumptive evidence of anti-HBc. Hepatitis C Antibody Reactive(A) Nonreactive [facility] Comment:Presumptive evidence of antibodies to HCV. Hepatitis B Surface Ag Negative Negative [facility] 06/22/2023 9:21 AM EDT 06/22/2023 9:33 AM EDT [facility] External Provider LAB BLO OD ORDERABLES Final Result Performing Organization Address City/[facility]/ZIP Co de Phone Number [facility] [address] [place] [address] [phone] * (ABNORMAL) Ferritin (06/22/2023 9:21 AM EDT) Ferritin 253(H) 20 - 250 ng/mL [facility] 06/22/2023 9:21 AM EDT 06/22/2023 9:33 AM EDT Generic External Data Provider LAB BLOOD ORDERAB LES Final Result Performing Organization Address [facility]/ZIP Co de Phone Number [facility] [address] [place] [address] [phone] * (ABNORMAL) Comprehensive Metabolic Panel (06/22/2023 9:21 AM EDT) Sodium 136 135 - 145 mmol/L [facility] Potassium 4.1 3.3 - 5.1 mmol/L [facility] Chloride 104 96 - 108 mmol/L [facility] Carbon Dioxide 23 22 - 29 mmol/L [facility] Anion Gap 13 12 - 20 [facility] Urea Nitrogen (BUN) 26(H) 9 - 16 mg/dL [facility] Creatinine, Serum 0.88 0.5 - 1.4 mg/dL [facility] Estimated Glomerular Filt Rate >60 [facility] Comment:NOTE: For -Am erican individuals, multiply the result by 1.210.Chronic Kidney Disease: Estimated GFR < 60 mL/min/1.35c6Wbqufk Kidney Disease: Estimated GFR < 15 mL/min/1.73m2 Glucose 142(H) 60 - 115 mg/dL [facility] Calcium 9.2 8.4 - 10.2 mg/dL [facility] Bilirubin, Total 1.0 0.0 - 1.0 mg/dL [facility] Aspartate Amino Transferase 114(H) 5 - 37 U/L [facility] Alanine Aminotransferase 196(H) 0 - 40 U/L [facility] Total Protein 7.1 6.5 - 8.0 g/dL [facility] Albumin Level 3.8 3.5 - 5.0 g/dL [facility] Alkaline Phosphatase 99 39 - 117 U/L [facility] 06/22/2023 9:21 AM EDT 06/22/2023 9:33 AM EDT us [facility] External Provider LAB BLO OD ORDERABLES Final Result [facility] [address] [place], [place] [phone] * (ABNORMAL) CBC auto differential (06/22/2023 9:21 AM EDT) White Blood Count 4.3(L) 4.8 - 10.8 X10*3/uL [facility] Red Blood Count 4.73 4.60 - 5.80 X10*6/uL [facility] Hemoglobin 14.9 14.0 - 18.0 g/dl [facility] Hematocrit 42.5 42.0 - 52.0 % [facility] Mean Corpuscular Volume 89.9 80.0 - 98.0 fL [facility] Mean Corpuscular Hemoglobin 31.5 27.0 - 33.0 pg [facility] Mean Corpuscular HGB Conc 35.1 31.0 - 36.0 g/dl [facility] Red Cell Distribution Width 11.8 11.0 - 16.0 % [facility] Platelet Count 116(L) 160 - 400 X10*3/uL [facility] Mean Platelet Volume 10.8 9.4 - 12.4 fL [facility] Neutrophils Percent Auto 61.1 45 - 73 % [facility] Imm Gran Pct Auto 0.2 0.0 - 0.4 % [facility] Lymphocytes Percent Auto 22.4 20 - 40 % [facility] Monocytes Percent Auto 13.5(H) 2 - 11 % [facility] Eosinophils Percent Auto 2.3 0 - 4 % [facility] Basophils Percent Auto 0.5 0 - 2 % [facility] NRBC Pct Auto 0.0 0.0 - 0.2 /100WBC [facility] Neutrophils Absolute Auto 2.6 2.0 - 8.3 x10*3/uL [facility] Imm Gran Abs Auto 0.01 0.00 - 0.03 X10*3/uL [facility] Lymphocytes Absolute Auto 1.0(L) 1.2 - 4.9 X10*3/uL [facility] Monocytes Absolute Auto 0.6 0.1 - 1.2 X10*3/uL [facility] Eosinophils Absolute Auto 0.1 0.0 - 0.4 X10*3/uL [facility] Basophils Absolute Auto 0.0 0.0 - 0.2 X10*3/uL [facility] NRBC Abs Auto 0.000 0.0 - 0.012 X10*3/uL [facility] 06/22/2023 9:21 AM EDT 06/22/2023 9:33 AM EDT us [facility] External Provider LAB BLO OD ORDERABLES Final Result [facility] [address] [place] [address] [phone] documented in this encounter Visit Diagnoses Not on filedocumented in this encounter Care Teams Roving Carrier Relationship Specialty Start Date End Date Randi Cedeno MD [address] [place] [phone] PCP - General Family Medicine 04/22/20 documented as of this encounter
--- OUTSIDE RECORDS SUMMARY | 2025-06-24 10:01 | XMS_ITS | Clinical Summary ---
Author Organization [employer] Address [address] [place] [address] [address]t [place] [address] Care Team Providers Care Newspaper Columnist Name Role Phone Randi Cedeno MD Primary [...] 03/13/2025 Active Blood Glucose Monitoring Suppl (FreeStyle Weedsport Lite) w/Device kit Use to test blood [...] information from this year visit to [facility] eye [facility] (Dr. Castro) Foot examination is [...] and drop BP log at the front line supervisor or send it to us via [email or web address]. Continue losartan HCTZ, order labs. Reminded him [...] the phone number of copayment assistance program: #[phone] , I reminded him to call and follow-up with GI for EGD, if no rx is possible bc access $$$, I will refer him to [facility]. 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 Referred to [facility] GI but he's unable to afford copayment for Vosevi I gave him infor copayment assistance program: #[phone] for him to call and fu with GI on Aug. If no rx is possible bc access $$$, I will refer him to [facility]. He's Hep A/B immune (previous Hep [...] Encounters Date Type Department Care Team Description 06/18/2025 Patient Outreach [facility] [address] [place] [address] Randi Cedeno MD Pre-visit Planning ([facility] unable to reach ) 05/10/2025 Results Follow-Up [address] [address] Randi Cedeno MD POCT Glucose, POCT HGB A1C, Comprehensive Metabolic Panel, Additional followed-up results: 2 05/01/2025 Orders Only [address] [address] Rosy Toure MD 04/24/2025 9:30 AM EDT Clinical Support [address] [address] Garfield Devi RN HTN (hypertension), benign 04/24/2025 Travel 03/27/2025 9:30 AM EDT Clinical Support [address] [address] Garfield Devi RN HTN (hypertension), benign 03/27/2025 Travel from Last 3 Months Immunizations Immunization Administration [...] 9:09 AM EDT Respiratory Rate 16 04/24/2025 9:3 8 AM EDT Oxygen Saturation 97% 04/24/2025 9:3 [...] Description 06/25/2025 9:00 AM EDT Office Visit [facility] [address] [place] [address] Randi Cedeno MD [address] [place] [address] Health Maintenance Due Date Last Done Comments [...] of 2) 03/19/2025 01/22/2025 COVID-19 Vaccine ( season) 2025 01/14/2021, 12/17/2020, 11/16/2020 Influenza Vaccine (#1) 2025 , 06/21/2023, 06/11/2021, Additional history exists Depression Screening 07/09/2025 07/09/2024, 07/09/20 Diabetes: Hemoglobin A1C 11/02/2025 025, 03/13/2025, 07/09/2024, Additional history exists SDOH [...] 2:04 PM EDT IFG (impaired fasting glucose) LIPID PANEL WITH REFLEX TO DIRECT LDL Routine 11/15/2024 7:09 AM EDT Essential hypertension IFG (impaired fasting glucose) HM COLONOSCOPY Routine 12/24/2021 from Last 3 Months or Most Recently Relevant to Health Maintenance Results * Alpha-Fetoprotein, Tumor Marker (05/02/2025 2:04 PM EDT) Alpha Fetoprotein 4.7 <6.1 ng/mL [facility] Comment:This test was perfor med using the Jesús Coulterchemiluminescent method. Values obtained fromdifferent assay methods cannot be usedinterchangeably. AFP levels, regardless ofvalue, should not be interpreted as absoluteevidence of the presence or absence of disease.THIS TEST WAS PERFORMED AT:[facility] [place] [phone] MCGARRY MD Blood Venous blood specimen / Unknown 05/02/2025 2:04 PM EDT 05/02/2025 4:11 PM EDT us Randi Cedeno MD LAB BLOOD ORDERABLES Fin al Result [facility] [address] [place] [phone] * (ABNORMAL) Hemoglobin A1c (05/02/2025 2:04 PM EDT) Hemoglobin A1c 6.5(H) <6.0 % [facility] Comment:Hemoglobin A1C Refer ence Range Adults: 4.8 - 6.0 % Non diabetic: < 6.0 % Goal: < 7.0 %Additional Action Suggested: > 8.0 %Note: Hemoglobin A1c results are invalid for patients with abnormal amounts of HbF. Blood transfusions may impact the HbA1c concentration in the patient sample. Estimated Average Glucose 140 mg/dL [facility] Comment:eAG = Estimated ave rage glucose which is %A1C expressed asaverage glucose, using the formula of the T4Y-WkznhsyEprfsdc Glucose study (ADAG), Diabetes Care, Vol.31,#8,Apr. 2007 Blood Venous blood specimen / Unknown 05/02/2025 2:04 PM EDT 05/02/2025 4:06 PM EDT Randi Cedeno MD LAB BLOOD ORDERABLES Fin al Result Performing Organization Address [facility]/ZIP Co de Phone Number [facility] [address] [place] [phone] * (ABNORMAL) Gamma Glutamyl Transferase (GGT) (05/02/2025 2:04 PM EDT) Gamma Glutamyl Transpeptidase 70(H) 11 - 51 U/L [facility] Blood Venous blood specimen / Unknown 05/02/2025 2:04 PM EDT 05/02/2025 4:11 PM EDT Rnadi Cedeno MD LAB BLOOD ORDERABLES Fin al Result Performing Organization Address [facility]/ZIP Co de Phone Number [facility] [address] [place] [phone] * (ABNORMAL) Comprehensive Metabolic Panel (05/02/2025 2:04 PM EDT) Sodium 135 135 - 145 mmol/L [facility] Potassium 3.8 3.3 - 5.1 mmol/L [facility] Chloride 103 96 - 108 mmol/L [facility] Carbon Dioxide 23 22 - 29 mmol/L [facility] Anion Gap 13 12 - 20 [facility] Urea Nitrogen (BUN) 29(H) 9 - 16 mg/dL [facility] Creatinine, Serum 1.20 0.5 - 1.4 mg/dL [facility] Estimated Glomerular Filt Rate >60 [facility] Comment:Chronic Kidney Disea se: Estimated GFR < 60 mL/min/1.50w2Xygoav Kidney Disease: Estimated GFR < 15 mL/min/1.73m2 Glucose 132(H) 60 - 115 mg/dL [facility] Calcium 8.9 8.4 - 10.2 mg/dL [facility] Bilirubin, Total 0.6 0.0 - 1.0 mg/dL [facility] Aspartate Amino Transferase 169(H) 5 - 37 U/L [facility] Alanine Aminotransferase 300(H) 0 - 40 U/L [facility] Total Protein 7.1 6.5 - 8.0 g/dL [facility] Albumin Level 3.7 3.5 - 5.0 g/dL [facility] Alkaline Phosphatase 121(H) 39 - 117 U/L [facility] Blood Venous blood specimen / Unknown 05/02/2025 2:04 PM EDT 05/02/2025 4:11 PM EDT us Randi Cedeno MD LAB BLOOD ORDERABLES Fin al Result [facility] [address] [place] [address] [phone] * Lipid Panel with Reflex to Direct LDL (11/15/2024 7:09 AM EDT) Triglycerides 81 <150 mg/dL [facility] Comment:Desirable Triglyceri de: less than 150 mg/dLBorderline High Triglyceride 150-199 mg/dLHigh Triglyceride: 200-499 mg/dLVery High Triglyceride: greater than or equal to 5OO mg/dL Cholesterol 136 <200 mg/dL [facility] Comment:Desirable Cholestero l: less than 200 mg/dLBorderline High Cholesterol: 200-239 mg/dLHigh Cholesterol: greater than 239 mg/dL LDL Cholesterol Calculated 73 <100 mg/dL [facility] Comment:Desirable LDL: less than 100 mg/dLNear Optimal/Above Optimal LDL: 110- 129 mg/dLBorderline High LDL: 130-159 mg/dLHigh LDL: 160-189 mg/dLVery High LDL: greater than or equal to 190 mg/dL HDL Cholesterol 47 >40 mg/dL [facility] Comment:Desirable HDL: great er than 40 mg/dL Note: This HDL assay may give artificially low results in patients with liver disease. Blood 11/15/2024 7:09 AM EDT 11/15/2024 7:09 AM EDT Randi Cedeno MD LAB BLOOD ORDERABLES Fin al Result [facility] [address] [place] [address] [phone] * (ABNORMAL) Colonoscopy (12/24/2021) Colonoscopy Abnormal( A) Normal Comment:FH of CRC 12/24/2021 Randi Cedeno MD HEALTH MAINTENANCE Final Result from Last 3 Months or Most Recently Relevant to Health Maintenance Insurance [address] [place] [id number] [facility] MEDICARE ADVANTAGE HMO MEDICARE Care Teams Newspaper Columnist Relationship Specialty Start Date End Date Randi Cedeno MD [address] [place] [phone] PCP - General Family Medicine 04/22/20
[2025-06-24 11:26] LABS: Anion Gap 12 (12-20); Blood Urea Nitrogen 26 mg/dL (9-16); Calcium 8.7 mg/dL (8.4-10.2); Carbon Dioxide 24 mmol/L (22-29); Chloride 104 mmol/L (96-108); Estimated Glomerular Filt Rate > 60; Potassium 4.1 mmol/L (3.3-5.1); Sodium 136 mmol/L (135-145)
[2025-06-24 11:46] LABS: PSA,Total (Free>4and<10) 0.16 ng/mL (0.00-4.00)
== END 2025-06-24 08:56 | disposition home or self-care (01) ==
LOC: HO.HHCL 08:55
PROVIDERS: PCP Internal Medicine; Visit Provider Urology
DX: Z12.5 Encounter for screening for malignant neoplasm of prostate (principal); I10 Essential (primary) hypertension; R35.1 Nocturia; R73.01 Impaired fasting glucose
CPT/HCPCS: 36415; 80048; 82947; 84153

== ENCOUNTER 2025-08-26 10:40 | Outpatient (REF) | payer MEDICARE, SELFPAY ==
--- NOTE | ~2025-08-26 | US_ITS ---
EXAMINATION: US BLADDER HISTORY: R35.1 - Nocturia COMPARISON: Correlation is made with a CT of the pelvis dated 01/09/2024. FINDINGS: Sonographic examination of the urinary bladder was performed before and after voiding. Before voiding, the urinary bladder measured 7.7 x 5.8 x 7.2, for an estimated volume of 171 mL. After voiding, the urinary bladder measured 4.0 x 1.3 x 2.8, for an estimated volume of 7.4 mL. No intrinsic bladder abnormality is identified. Bilateral ureteral jets are identified. The prostate measures 3.5 x 3.4 x 3.9 cm, for an estimated volume of 24.2 mL. US/US bladder IMPRESSION: 1. Unremarkable ultrasound of the urinary bladder. 2. Post void bladder residual of 7.4 mL. 3. Prostate volume of 24.2 mL. Electronically signed by: Madi Estrella MD 08/26/2025 11:10 AM [facility]
--- OUTSIDE RECORDS SUMMARY | 2025-08-26 13:13 | XMS_ITS | Encounter Summary ---
Author Organization [employer] Address [address] [facility] [address] [place] [address] Care Team Providers Care Bench Inspector Name Role Phone Randi Cedeno MD Primary Care Provider + Encounter Details Date Type Department Care Team ([facility] Contact Info) Description 08/24/2022 Orders Only [facility] [address] [place], [place] [phone] Helga Gardiner LPN Social History Tobacco Use [...] Priority Date/Time Associated Diagnosis Comments HIV ANTIBODY/ANTIGEN ([place] DP) Routine 06/22/2023 9:21 AM EDT HCV [...] 9:21 AM EDT) Liver Fibrosis Score 0.84 [facility] Liver Fibrosis Stage F4 [facility] Liver Fibrosis Interpretation SEE NOTE [facility] Comment:severe fibrosisFibro Test Score (f) Metavir Score f>=0 and f<=0.21 : F0 (no fibrosis)f>0.21 and f<=0.27 : F0-F1 (no fibrosis)f>0.27 and f<=0.31 : F1 (minimal fibrosis)f>0.31 and f<=0.48 : F1-F2 (minimal fibrosis)f>0.48 and f<=0.58 : F2 (moderate fibrosis)f>0.58 and f<=0.72 : F3 (advanced fibrosis)f>0.72 and f<=0.74 : F3-F4 (advanced fibrosis)f>0.74 and f<=1.00 : F4 (severe fibrosis) Nec Inflam Act Score 0.88 [facility] Nec Inflam Act Grade A3 [facility] Nec Inflam Act Interpretation SEE NOTE [facility] Comment:severe activityActiT est Score (a) Metavir Score a>=0 and a<=0.17 : A0 (no activity)a>0.17 and a<=0.29 : A0-A1 (no activity)a>0.29 and a<=0.36 : A1 (minimal activity)a>0.36 and a<=0.52 : A1-A2 (minimal activity)a>0.52 and a<=0.60 : A2 (significant activity)a>0.60 and a<=0.62 : A2-A3 (significant activity)a>0.62 and a<=1.00 : A3 (severe activity) QBW-Yaexd-6-Macroglo bulin 329(A) 106 - 279 mg/dL [facility] FIB-Haptoglobin 11(A) 43 - 212 mg/dL [facility] FIB-Apolipoprotein A1 198(A) 94 - 176 mg/dL [facility] FIB-Total Bilirubin 0.9 0.2 - 1.2 mg/dL [facility] FIB-GGT 47 3 - 70 U/L [facility] FIB-ALT 167(A) 9 - 46 U/L [facility] Reference ID [id number] [facility] Footnote SEE NOTE [facility] Comment: The reliability of results is [...] performance characteristics have been determined by[facility]. Ithas not been cleared or approved by the U.S. Food and DrugAdministration. Performance characteristics refer to theanalytical performance of the test.[employer], [employer], the associated logo, Sharon and all associated [employer] alvarez are theregistered trademarks of [employer]. All third partymarks - (R) and (TM) - are the property of their respectiveowners. (C) [id number] [employer]. Allrights reserved.THIS TEST WAS PERFORMED AT:[employer] [id number] [place] [address]ASXMVCANDY SHAH MD,PHD,LAUREN 06/22/2023 9:21 AM EDT 06/22/2023 9:33 AM EDT us Generic External Data Provider LAB BLOOD ORDERAB LES Final Result [facility] [address] [place] [phone] * RANDI Screen,IFA, with Reflex to Titer and Pattern (06/22/2023 9:21 AM EDT) Anti Nuclear Antibody Screen NEGATIVE NEGATIVE [facility] Comment:RANDI IFA is a first l [...] clinicallysuspected inflammatory myopathies.AC-0: NegativeInternational Consensus on RANDI Patterns(https://doi.org/10.1515/wubl-6012-3472)For additional information, please refer tohttp://education.[employer]/faq/LVI366(This link is being provided for informational/educational purposes only.)THIS TEST WAS PERFORMED AT:[employer] [place] [phone] MCGARRY MD RANDI Titer TNP [facility] RANDI Pattern TNP [facility] RANDI Titer 2 TNP [facility] RANDI Pattern 2 TNP [facility] RANDI TITER 3 TNP [facility] RANDI PATTERN 3 TNP [facility] 06/22/2023 9:21 AM EDT 06/22/2023 9:33 AM EDT [facility] External Provider LAB BLO OD ORDERABLES Final Result Performing Organization Address [facility]/ZIP Co de Phone Number [facility] [address] [place] [address] [phone] * Actin (Smooth Muscle) Antibody (IgG) (06/22/2023 9:21 AM EDT) Smooth Muscle Antibody <20 <20 U [facility] Comment:Reference Range: <20 U: Negative>or=20 U: [...] with AIH type 1.THIS TEST WAS PERFORMED AT:[employer] [place] [address]NFUCAJASCOTTIE MCKENNA MD,PHD 06/22/2023 9:21 AM EDT 06/22/2023 9:33 AM EDT Generic External Data Provider LAB BLOOD ORDERAB LES Final Result Performing Organization Address [facility]/ZIP Co de Phone Number [facility] [address] [place] [address] [phone] * T-SPOT??.TB (06/22/2023 9:21 AM EDT) T Spot TB Negative Negative [facility] Comment:A negative test resu lt does [...] as aquantitative test. TS PANEL A 0 [facility] TS PANEL B 0 [facility] Negative Control Passed [facility] Positive Control Passed [facility] Comment:For additional infor mation, please refer tohttp://education.[employer]/faq/WTB092(This link is being provided for informational/educational purposes only.)THIS TEST WAS PERFORMED AT:[employer] [place] [address]JBSQKNMSCOTTIE MCKENNA MD,PHD 06/22/2023 9:21 AM EDT 06/22/2023 9:33 AM EDT us [facility] External Provider LAB BLO OD ORDERABLES Final Result [facility] [address] [place] [phone] * (ABNORMAL) HCV RNA BY PCR, QN RFX GRACE (06/22/2023 9:21 AM EDT) Pathologist [facility] HCV RNA PCR QN [id number]( A) NOT DETECTED IU/mL [facility] HCV RNA PCR QN 6.50(A) NOT DETECTED Log IU/mL [facility] HCV RNA COMMENT SEE NOTE [facility] Comment:This test was perfor med using Real-Time Polymerase ChainReaction.Reportable Range: 15 IU/mL to 100,000,000 IU/mL(1.18 Log IU/mL to 8.00 Log IU/mL).The analytical performance characteristics of this assayhave been determined by [employer]. Themodifications have not been cleared or approved by theFDA. This assay has been validated pursuant to the CLIARegulations and is used for clinical purposes.For more information on this test, go to:http://[employer]/faq/HNU17b3(This link is being provided for informational/Educational purposes only.)THIS TEST WAS PERFORMED AT:[employer] [place] [phone] MCGARRY MD HCV RNA GENOTYPE,LIPA 1b [facility] Comment:The method used in t his test is RT-PCR and reversehybridization (Line Probe) of the 5' UTR and coreregion of the HCV genome.The analytical performance characteristics of thisassay have been determined by [place]. The modificationshave not been cleared or approved by the FDA. Thisassay has been validated pursuant to the CLIAregulations and is used for clinical purposes.For additional information, please refer tohttp://education.[employer]/faq/HCVGenotyping(This link is being provided for informational/educational purposes only.)THIS TEST WAS PERFORMED AT:[employer]/[facility] [place] [address]BGVHXDGSCOTTIE MCKENNA MD,PHD 06/22/2023 9:21 AM EDT 06/22/2023 9:33 AM EDT us [facility] External Provider LAB BLO OD ORDERABLES Final Result [facility] [address] [place] [phone] * Mitochondrial Antibody with Reflex to Titer (06/22/2023 9:21 AM EDT) Pathologist [facility] Mitochondrial Antibodies NEGATIVE NEGATIVE [facility] Comment:THIS TEST WAS PERFOR MED AT:[employer] [address] [phone] MCGARRY MD Mitochondrial Ab Titer TNP [facility] 06/22/2023 9:21 AM EDT 06/22/2023 9:33 AM EDT [facility] External Provider LAB BLO OD ORDERABLES Final Result Performing Organization Address [facility] Co de Phone Number [facility] [address] [place] [phone] * Alpha-Fetoprotein, Tumor Marker (06/22/2023 9:21 AM EDT) Pathologist [facility] Alpha Fetoprotein 4.8 <6.1 ng/mL [facility] Comment:This test was perfor med using the Jesús Coulterchemiluminescent method. Values obtained fromdifferent assay methods cannot be usedinterchangeably. AFP levels, regardless ofvalue, should not be interpreted as absoluteevidence of the presence or absence of disease.THIS TEST WAS PERFORMED AT:[employer] [address] [address]ILBZMLINO MCGARRY MD 06/22/2023 9:21 AM EDT 06/22/2023 9:33 AM EDT [facility] External Provider LAB BLO OD ORDERABLES Final Result Performing Organization Address [facility] Co de Phone Number [facility] [address] [place] [address] [phone] * HIV Ab/Ag (DUSTIN FELICIANO) (06/22/2023 9:21 AM EDT) Pathologist [facility] HIV AB/AG Nonreactive Nonreactive [facility] Comment:HIV-1 p24 Ag and/or HIV-1/HIV-2 Ab not detected.A test result that is nonreactive does not exclude thepossibility of exposure to or infection with HIV-1 and/orHIV-2. Nonreactive results in this assay for individualswith prior exposure to HIV-1 and/or HIV-2 may be due toantigen and antibody levels that are below the limit ofdetection of this assay.The [employer] HIV Ag/Ab Combo assay result andsupplemental assay results should be interpreted inconjunction with the patient's clinical presentation,history and other laboratory results. If the results areinconsistent with clinical evidence, additional testing issuggested to confirm the result. 06/22/2023 9:21 AM EDT 06/22/2023 9:33 AM EDT [facility] External Data Provider LAB BLOOD ORDERAB LES Final Result Performing Organization Address [facility] de Phone Number [facility] [address] [place] [phone] * (ABNORMAL) Hepatitis Panel, General (06/22/2023 9:21 AM EDT) Hepatitis A IgM Nonreactive Nonreactive [facility] Comment:IgM antibodies to LIM V not detected; does not exclude earlyacute or recovered HAV infection. ~Hepatitis B Surface Antibody REACTIVE Nonreactive [facility] Comment:REACTIVE: > 11.99 mI U/mL Hepatitis B Core Antibody Reactive Nonreactive [facility] Comment:Presumptive evidence of anti-HBc. Hepatitis C Antibody Reactive(A) Nonreactive [facility] Comment:Presumptive evidence of antibodies to HCV. Hepatitis B Surface Ag Negative Negative [facility] 06/22/2023 9:21 AM EDT 06/22/2023 9:33 AM EDT [facility] External Provider LAB BLO OD ORDERABLES Final Result Performing Organization Address [facility] Co de Phone Number [facility] [address] [place] [phone] * (ABNORMAL) Ferritin (06/22/2023 9:21 AM EDT) Ferritin 253(H) 20 - 250 ng/mL [facility] 06/22/2023 9:21 AM EDT 06/22/2023 9:33 AM EDT us Generic External Data Provider LAB BLOOD ORDERAB LES Final Result [facility] [address] [place] [phone] [phone] * (ABNORMAL) Comprehensive Metabolic Panel (06/22/2023 9:21 AM EDT) Sodium 136 135 - 145 mmol/L [facility] Potassium 4.1 3.3 - 5.1 mmol/L [facility] Chloride 104 96 - 108 mmol/L [facility] Carbon Dioxide 23 22 - 29 mmol/L [facility] Anion Gap 13 12 - 20 [facility] Urea Nitrogen (BUN) 26(H) 9 - 16 mg/dL [facility] Creatinine, Serum 0.88 0.5 - 1.4 mg/dL [facility] Estimated Glomerular Filt Rate >60 [facility] Comment:NOTE: For -Am erican individuals, multiply the result by 1.210.Chronic Kidney Disease: Estimated GFR < 60 mL/min/1.54t2Gjzwgx Kidney Disease: Estimated GFR < 15 mL/min/1.73m2 Glucose 142(H) 60 - 115 mg/dL [facility] Calcium 9.2 8.4 - 10.2 mg/dL [facility] Bilirubin, Total 1.0 0.0 - 1.0 mg/dL [facility] Aspartate Amino Transferase 114(H) 5 - 37 U/L [facility] Alanine Aminotransferase 196(H) 0 - 40 U/L [facility] Total Protein 7.1 6.5 - 8.0 g/dL [facility] Albumin Level 3.8 3.5 - 5.0 g/dL [facility] Alkaline Phosphatase 99 39 - 117 U/L [facility] 06/22/2023 9:21 AM EDT 06/22/2023 9:33 AM EDT us [facility] External Provider LAB BLO OD ORDERABLES Final Result [facility] [address] [place] [phone] * (ABNORMAL) CBC auto differential (06/22/2023 9:21 AM EDT) White Blood Count 4.3(L) 4.8 - 10.8 X10*3/uL [facility] Red Blood Count 4.73 4.60 - 5.80 X10*6/uL [facility] Hemoglobin 14.9 14.0 - 18.0 g/dl [facility] Hematocrit 42.5 42.0 - 52.0 % [facility] Mean Corpuscular Volume 89.9 80.0 - 98.0 fL [facility] Mean Corpuscular Hemoglobin 31.5 27.0 - 33.0 pg [facility] Mean Corpuscular HGB Conc 35.1 31.0 - 36.0 g/dl [facility] Red Cell Distribution Width 11.8 11.0 - 16.0 % [facility] Platelet Count 116(L) 160 - 400 X10*3/uL [facility] Mean Platelet Volume 10.8 9.4 - 12.4 fL [facility] Neutrophils Percent Auto 61.1 45 - 73 % [facility] Imm Gran Pct Auto 0.2 0.0 - 0.4 % [facility] Lymphocytes Percent Auto 22.4 20 - 40 % [facility] Monocytes Percent Auto 13.5(H) 2 - 11 % [facility] Eosinophils Percent Auto 2.3 0 - 4 % [facility] Basophils Percent Auto 0.5 0 - 2 % [facility] NRBC Pct Auto 0.0 0.0 - 0.2 /100WBC [facility] Neutrophils Absolute Auto 2.6 2.0 - 8.3 x10*3/uL [facility] Imm Gran Abs Auto 0.01 0.00 - 0.03 X10*3/uL [facility] Lymphocytes Absolute Auto 1.0(L) 1.2 - 4.9 X10*3/uL [facility] Monocytes Absolute Auto 0.6 0.1 - 1.2 X10*3/uL [facility] Eosinophils Absolute Auto 0.1 0.0 - 0.4 X10*3/uL [facility] Basophils Absolute Auto 0.0 0.0 - 0.2 X10*3/uL [facility] NRBC Abs Auto 0.000 0.0 - 0.012 X10*3/uL [facility] 06/22/2023 9:21 AM EDT 06/22/2023 9:33 AM EDT [facility] External Provider LAB BLO OD ORDERABLES Final Result [facility] [address] [place] [phone] documented in this encounter Visit Diagnoses Not on filedocumented in this encounter Care Teams Bench Inspector Relationship Specialty Start Date End Date Randi Cedeno MD [address] [place] [phone] PCP - General Family Medicine 04/22/20 documented as of this encounter
--- OUTSIDE RECORDS SUMMARY | 2025-08-26 13:13 | XMS_ITS | Encounter Summary ---
Author Organization [employer] Address [address] [facility] 7[address] [place] [address] Care Team Providers Care Qa Test Lead Name Role Phone Randi Cedeno MD Primary Care Provider + Encounter Details Date Type Department Care Team ([facility] Contact Info) Description 08/26/2025 Orders Only [facility] External Provider, [facility] Social History Tobacco Use Types Packs/Day Years [...] Procedure Name Priority Date/Time Associated Diagnosis Comments US BLADDER Routine 08/26/2025 10:49 AM EST documented in this encounter Results * US BLADDER (08/26/2025 10:49 AM EST) Anatomical Region Laterality Modality Abdomen Ultrasound 08/26/2025 10:4 9 AM EST Narrative 08/26/2025 11:13 AM EST [place] [address] Ultrasound Report Signed Patient: Clyde Luna MR#: [id number] : 1960 Acct:[id number] Age/Sex: 65 / M ADM Date: 08/26/25 Loc: HO.US Attending Dr: Remberto Collins MD Ordering Physician: Remberto Collins MD Date of Service: 08/26/25 Procedure(s): US bladder Accession Number(s): [id number] cc: Remberto Collins MD; Randi Cedeno MD Reason for Exam: R35.1 - Nocturia EXAMINATION: US BLADDER HISTORY: R35.1 - Nocturia COMPARISON: Correlation is made with a CT of the pelvis dated 01/09/2024. FINDINGS: Sonographic examination of the urinary bladder was performed before and after voiding. Before voiding, the urinary bladder measured 7.7 x 5.8 x 7.2, for an estimated volume of 171 mL. After voiding, the urinary bladder measured 4.0 x 1.3 x 2.8, for an estimated volume of 7.4 mL. No intrinsic bladder abnormality is identified. Bilateral ureteral jets are identified. The prostate measures 3.5 x 3.4 x 3.9 cm, for an estimated volume of 24.2 mL. US/US bladder IMPRESSION: 1. Unremarkable ultrasound of the urinary bladder. 2. Post void bladder residual of 7.4 mL. 3. Prostate volume of 24.2 mL. Electronically signed by: Madi Estrella MD 08/26/2025 11:10 AM EST RP Dictated By: Madi Estrella MD Signed By: <Electronically signed by Madi Estrella MD in OV> 08/26/25 1110 DD/ 1049 TD/TT: 08/26/25 1058 Fairing Worker: Procedure Note Donotuseinterpreter, Image - 08/26/2025 [place] [address] Ultrasound Report Signed Patient: Clyde Luna#: [id number] : 8Acct:[id number] Age/Sex: 65 / MADM Date: 08/26/25 Loc: HO.US Attending Dr: Remberto Collins MD Ordering Physician: Remberto Collins MD Date of Service: 08/26/25 Procedure(s): US bladder Accession Number(s): [id number] cc: Remberto Collins MD; Randi Cedeno MD Reason for Exam: R35.1 - Nocturia EXAMINATION: US BLADDER HISTORY: R35.1 - Nocturia COMPARISON: Correlation is made with a CT of the pelvis dated 01/09/2024. FINDINGS: Sonographic examination of the urinary bladder was performed before and after voiding. Before voiding, the urinary bladder measured 7.7 x 5.8 x 7.2, for an estimated volume of 171 mL. After voiding, the urinary bladder measured 4.0 x 1.3 x 2.8, for an estimated volume of 7.4 mL. No intrinsic bladder abnormality is identified. Bilateral ureteral jets are identified. The prostate measures 3.5 x 3.4 x 3.9 cm, for an estimated volume of 24.2 mL. US/US bladder IMPRESSION: 1. Unremarkable ultrasound of the urinary bladder. 2. Post void bladder residual of 7.4 mL. 3. Prostate volume of 24.2 mL. Electronically signed by: Madi Estrella MD 08/26/2025 11:10 AM EST RP Dictated By: Madi Estrella MD Signed By: <Electronically signed by Madi Estrella MD in OV> 08/26/25 1110 DD/ 1049 TD/TT: 08/26/25 1058 Fairing Worker: [facility] External Provider IMG US PROCEDURES Edited Result - Final documented in this encounter Visit Diagnoses Not on filedocumented in this encounter Additional Health Concerns Assessment Noted Time PHQ-9 Depression Total Score: 0 07/09/20 24 1:15 PM EST documented as of this encounter Care Teams Qa Test Lead Relationship Specialty Start Date End Date Randi Cedeno MD [address] [place] [phone] PCP - General Family Medicine 04/22/20 documented as of this encounter
--- OUTSIDE RECORDS SUMMARY | 2025-08-26 13:13 | XMS_ITS | Encounter Summary ---
Author Organization [employer] Address [address] [facility] [address] [place] [address] Care Team Providers Care Boilermaker Ship Name Role Phone Randi Cedeno MD Primary Care Provider + Encounter Details Date Type Department Care Team ([facility] Contact Info) Description 05/01/2025 Orders Only [facility] [address], [place] [phone] Rosy Toure MD [address] [place], [place] [phone] Social History Tobacco Use Types Packs/Day Years [...] documented as of this encounter Care Teams Boilermaker Ship Relationship Specialty Start Date End Date Randi Cedeno MD [address] [place] [phone] PCP - General Family Medicine 04/22/20 documented as of this encounter
--- OUTSIDE RECORDS SUMMARY | 2025-08-26 13:13 | XMS_ITS | Clinical Summary ---
Author Organization [employer] Address [address] [place] [address] 7t [place] [address] Care Team Providers Care Medical Advisor Name Role Phone Randi Cedeno MD Primary [...] IF SYMPTOMS PERSIST OR WORSEN 4 Active FREESTYLE LITE test strip Use to test blood sugar 1x times daily 100 each 12 5 026 Active Lancets misc Use to test blood sugar 1x times daily 100 each 11 5 Active Alcohol Swabs 70 % pads Use to test blood sugar 1x times daily 100 each 3 5 Active Blood Glucose Monitoring Suppl (FreeStyle Helena Lite) w/Device kit Use to test blood sugar 1x times daily 1 kit 5 Active Blood Glucose Monitoring Suppl (FreeStyle Lite) device Inject 1 each under the skin Use as directed. Please use to check blood sugar once daily. 1 each 5 Active Blood Glucose Monitoring Suppl (Accu-Chek Guide Me) w/Device kitIndications :Type 2 diabetes mellitus without complication, without long-term current use of insulin (HCC) USE TO TEST BLOOD SUGAR ONCE A DAY 1 kit 5 Active glucose blood (Accu-Chek Guide Test) test stripIndicatio ns:Type 2 diabetes mellitus without complication, without long-term current use of insulin (HCC) USE TO TEST BLOOD SUGAR ONCE A DAY 100 each 3 5 026 Active Accu-Chek Softclix Lancets lancetsIndicat ions:Type 2 diabetes mellitus without complication, without long-term current use of insulin (HCC) USE TO TEST BLOOD SUGAR ONCE A DAY 100 each 3 5 026 Active losartan-hydro CHLOROthiazide (Hyzaar) 100-25 MG tablet Take 1 tablet by mouth Once per day. 90 tablet 3 5 026 Active tamsulosin (Flomax) 0.4 MG 24 hr capsuleIndicat ions:Lower urinary tract symptoms (LUTS) TAKE 1 CAPSULE(0.4 MG) BY MOUTH AT BEDTIME 90 capsule 2 5 Active tamsulosin (Flomax) 0.4 MG 24 hr capsuleIndicat ions:Lower urinary tract symptoms (LUTS) Take 1 capsule (0.4 mg) by mouth at bedtime. 90 capsule 2 5 025 Discontinued Active Problems Problem Noted Date Diagnosed Date [...] (impaired fasting glucose) 04/01/2023 Assessment & Plan (06/25/2025 3:47 PM EDT): He has hyperglycemia, he is off medications Discussed about lowering calorie intakes, continue with exercise and increase water intake Follow-up in 3 to 4 months I will check A1c. Assessment & Plan (03/13/2025 3:17 PM EDT): Patient has DM, A1c is at goal. Continue off medications I counseled re more frequent low calorie/carb meals. Check fgstk 1x daily Encouraged physical activity as tolerated. FU in 4 months. Will obtain information from this year visit to [facility] eye clinic (Dr. Castro) Foot examination is [...] refer to dietitian diagnosis discussed with pt. Zac henderson 04/01/2023 Essential hypertension 04/01/2023 Assessment & Plan [...] and drop BP log at the front end manager or send it to us via [employer]. Continue losartan HCTZ, order labs. Reminded him [...] of liver (CMS/HCC) 04/01/2023 Assessment & Plan (06/25/2025 3:53 PM EDT): Patient's last year elastography showed liver fibrosis, he has chronic hep C, see above Refer to [facility] for further evaluation Assessment & Plan (03/13/2025 10:34 AM EDT): [...] hepatitis C (CMS/HCC) 04/01/2023 Assessment & Plan (06/25/2025 3:50 PM EDT): Failed IFN and Epclusa, he was unable to afford copayment for Vosevi (seen by [facility] GI on 2023), he has the phone number of copayment assistance program: #[phone] , I reminded him to call and follow-up with GI for EGD, he will keep an eye on potential change on insurance coverage. He has been referred to [facility] for further evaluation, information about referral was given to patient. He's Hep A/B immune (previous Hep B infection) Follow-up with me in 3 months Assessment & Plan (11/09/2024 12:41 PM EST): Failed IFN and Epclusa. Followed by GI but unable to afford copayment for new treatment. He has the phone number of copayment assistance program: #[phone] , I reminded him to call and follow-up with GI for EGD, if no rx is possible bc access $$$, I will refer him to [facility] GI. 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 Referred to [facility] GI but he's unable to afford copayment for Vosevi I gave him infor re copayment assistance program: #[phone] for him to call and fu with GI on Aug. If no rx is possible bc access $$$, I will refer him to [facility] GI. He's Hep A/B immune (previous [...] Encounters Date Type Department Care Team Description 08/26/2025 Orders Only [facility] External Provider, [facility] 08/12/2025 Refill [facility] [address] [place] [phone] Randi Cedeno MD Lower urinary tract symptoms (LUTS) 08/11/2025 Refill [facility] [address] [place] [phone] Randi Cedeno MD Lower urinary tract symptoms (LUTS) 06/25/2025 9:00 AM EDT Office Visit [facility] [address] [place] [phone] Randi Cedeno MD IFG (impaired fasting glucose) (Primary Dx); Chronic hepatitis C without hepatic coma (HCC); Encounter for immunization; Other cirrhosis of liver (HCC) 06/25/2025 Telephone [facility] [address] [place] [phone] Randi Cedeno MD 06/25/2025 Travel 06/24/2025 Telephone [facility] [address] [place] [phone] Randi Cedeno MD Chart Prep 06/24/2025 Orders Only [facility] [address] [place] [phone] Rosy Toure MD 06/18/2025 Patient Outreach [facility] [address] [place], [place] [phone] Randi Cedeno MD Pre-visit Planning ([facility] unable to reach ) from Last 3 Months Immunizations Immunization Administration Dates Next Due Influenza High-dose Quadriva lent Preservative Free 06/21/2023 Influenza injectable quadriv alent preservative free 06/11/2021,06/20/2020 Influenza, High Dose Seasona l, Preservative Free 06/25/2025 Influenza, seasonal, injecta ble, preservative free 07/09/2024 Moderna Covid-19 Vaccine 12+ 01/14/2021,12/18/19 21,11/16/2020 Pneumococcal Conjugate PCV 21 01/22/2025 Zoster, Recombinant 01/22/2025 Social History Tobacco Use Types Packs/Day Years [...] Sign Reading Time Taken Comments Blood Pressure 142/64 06/25/2025 8:52 AM EDT Pulse 60 06/25/2025 8:52 AM EDT Temperature 36.1 C (97 F) 06/25/2025 8:52 AM EDT Respiratory Rate 20 06/25/2025 8:52 AM EDT Oxygen Saturation 97% 04/24/2025 9:38 AM EDT Inhaled Oxygen Concentration - - Weight 84.8 kg (187 lb) 06/25/2025 8:52 AM EDT Height 175.3 cm (5' 9 ) 06/25/2025 8:52 AM EDT Body Mass Index 27.62 06/25/2025 8:52 AM EDT Plan of Treatment Health Maintenance Due Date Last Done Comments CT Colonography 1960 FIT DNA/Cologuard 1960 FIT 1960 FOBT 1960 Sigmoidoscopy 1960 Eye Exam 1968 DTaP/Tdap/Td Vaccines (1 - Tdap) 1977 Diabetes: Urine Protein Screening 1977 Hepatitis A Vaccines (1 of 2 - Risk 2-dose series) 1977 RSV Patients and Patients Aged 60 years or older (1 - Risk 50-74 years 1-dose series) 2008 Zoster Vaccines (2 of 2) 03/19/2025 01/22/2025 COVID-19 Vaccine ( - 2024- season) 2025 01/14/2021, 12/17/2020, 11/16/2020 Depression Screening 07/09/2025 07/09/2024, 07/09/20 24 Diabetes: Hemoglobin A1C 11/02/2025 025, 03/13/2025, 07/09/2024, Additional history exists SDOH Screening 11/09/2025 11/09/2024 Lipid Panel 11/15/2025 11/15/2024, 06/05, 03/10/2020 Diabetes: Foot Exam 03/13/2026 03/13/2025, 03/13/2025, 03/13/2025, Additional history exists Alcohol/Substance Use Screening 06/25/2026 06/25/2025 Tobacco Screening 06/25/2026 06/25/2025 Colonoscopy 12/24/2026 12/24/2021 Colorectal Cancer Screening 12/24/2026 Pneumococcal Vaccine: 50+ Years Completed 01/22/2025 Influenza Vaccine Completed 06/25/2025, , 06/21/2023, Additional history exists HIB Vaccines Aged Out [...] US BLADDER Routine 08/26/2025 10:49 AM EST PSA, TOTAL WITH REFLEX TO PSA, FREE Routine 06/24/2025 9:02 AM EDT BASIC METABOLIC PANEL Routine 06/24/2025 9:02 AM EDT GLUCOSE Routine 06/24/2025 9:02 AM EDT IFG (impaired fasting glucose) HEMOGLOBIN A1C Routine 05/02/2025 2:04 PM EDT IFG (impaired fasting glucose) LIPID PANEL WITH REFLEX TO DIRECT LDL Routine 11/15/2024 7:09 AM EDT Essential hypertension IFG (impaired fasting glucose) HM COLONOSCOPY Routine 12/24/2021 from Last 3 Months or Most Recently Relevant to Health Maintenance Results * US BLADDER (08/26/2025 10:49 AM EST) Anatomical Region Laterality Modality Abdomen Ultrasound 08/26/2025 10:4 9 AM EST Narrative 08/26/2025 11:13 AM EST [address] [address] Ultrasound Report Signed Patient: Clyde Luna MR#: [id number] : 1960 Acct:[id number] Age/Sex: 65 / M ADM Date: 08/26/25 Loc: HO.US Attending Dr: Remberto Collins MD Ordering Physician: Remberto Collins MD Date of Service: 08/26/25 Procedure(s): US bladder Accession Number(s): [id number] cc: Remberto Collins MD; Randi Cedeno MD [...] Madi Estrella MD 08/26/2025 11:10 AM EST Dictated By: Madi Estrella MD Signed By: <Electronically signed by Madi Estrella MD in OV> 08/26/25 1110 DD/ 1049 TD/TT: 08/26/25 1058 An/Ssn 2 4 Operator: Procedure Note Donotuseinterpreter, Image - 12/22/2025 [place] [address] Ultrasound Report Signed Patient: Amandeep Luna#: [id number] : 8Acct:[id number] Age/Sex: 65 / MADM Date: 08/26/25 Loc: HO.US Attending Dr: Remberto Collins MD Ordering Physician: Remberto Collins MD Date of Service: 08/26/25 Procedure(s): US bladder Accession Number(s): [id number] cc: Remberto Collins MD; Randi Cedeno MD [...] 08/26/25 1110 DD/ 1049 TD/TT: 08/26/25 1058 An/Ssn 2 4 Operator: [facility] External Provider IMG US PROCEDURES Edited Result - Final * PSA, Total With Reflex to PSA, Free (06/24/2025 9:02 AM EDT) PSA,Total (Free>4and<10) 0.16 0.00 - 4.00 ng/mL [facility] Comment:A Free PSA was not p erformed: The percentage of Free PSA can be used to enhance the differentiation of prostate cancer from benign prostatic disease in subjects whose PSA levels are between 4.0 and 10.0 ng/mL. For subjects whose PSA levels are below 4.0 or above 10.0 ng/mL, the risk of prostate cancer is determined on the basis of the PSA alone. Therefore the % Free PSA is recommended only for those subjects whose PSA levels are between 4.0 and 10.0 ng/mL.PSA methodology: Luis Alinity i ChemiluminescentMicroparticle Immunoassay (CMIA) 06/24/2025 9:02 AM EDT 06/24/2025 11:01 AM EDT us Generic External Data Provider LAB BLOOD ORDERAB LES Final Result Performing Organization Address [facility]/ZIP Co de Phone Number [facility] [address] [place] [phone] * (ABNORMAL) Glucose, Fasting (06/24/2025 9:02 AM EDT) Glucose Fasting 189(H) 60 - 99 mg/dL [facility] Comment:A fasting glucose of 126 mg/dl or greater on more than oneoccasion is considered diagnostic of diabetes. Blood Venous blood specimen / Unknown 06/24/2025 9:02 AM EDT 06/24/2025 11:01 AM EDT us Randi Cedeno MD LAB BLOOD ORDERABLES Fin al Result Performing Organization Address [facility]/ZIP Co de Phone Number [facility] [address] [place], [place] [phone] * (ABNORMAL) Basic Metabolic Panel (06/24/2025 9:02 AM EDT) Sodium 136 135 - 145 mmol/L [facility] Potassium 4.1 3.3 - 5.1 mmol/L [facility] Chloride 104 96 - 108 mmol/L [facility] Carbon Dioxide 24 22 - 29 mmol/L [facility] Anion Gap 12 12 - 20 [facility] Urea Nitrogen (BUN) 26(H) 9 - 16 mg/dL [facility] Creatinine, Serum 0.95 0.5 - 1.4 mg/dL [facility] Estimated Glomerular Filt Rate >60 [facility] Comment:Chronic Kidney Disea se: Estimated GFR < 60 mL/min/1.83x9Exdcue Kidney Disease: Estimated GFR < 15 mL/min/1.73m2 Glucose 189(H) 60 - 115 mg/dL [facility] Calcium 8.7 8.4 - 10.2 mg/dL [facility] 06/24/2025 9:02 AM EDT 06/24/2025 11:01 AM EDT us Rosy Toure MD LAB BLOOD ORDERABLES Final Res ult [facility] [address] [place] [phone] * (ABNORMAL) Hemoglobin A1c (05/02/2025 2:04 PM EDT) Hemoglobin A1c 6.5(H) <6.0 % [facility] Comment:Hemoglobin A1C Refer ence Range Adults: 4.8 - 6.0 % Non diabetic: < 6.0 % Goal: < 7.0 %Additional Action Suggested: > 8.0 %Note: Hemoglobin A1c results are invalid for patients with abnormal amounts of HbF. Blood transfusions may impact the HbA1c concentration in the patient sample. Estimated Average Glucose 140 mg/dL [facility] Comment:eAG = Estimated ave rage glucose which is %A1C expressed asaverage glucose, using the formula of the L6N-VewwfigWoqniuw Glucose study (ADAG), Diabetes Care, Vol.31,#8,Apr. 2007 Blood Venous blood specimen / Unknown 05/02/2025 2:04 PM EDT 05/02/2025 4:06 PM EDT Randi Cedeno MD LAB BLOOD ORDERABLES Fin al Result Performing Organization Address [facility] Co de Phone Number [facility] [address] [place] [phone] * Lipid Panel with Reflex to Direct LDL (11/15/2024 7:09 AM EDT) Triglycerides 81 <150 mg/dL [facility] Comment:Desirable Triglyceri de: less than 150 mg/dLBorderline High Triglyceride 150-199 mg/dLHigh Triglyceride: 200-499 mg/dLVery High Triglyceride: greater than or equal to 5OO mg/dL Cholesterol 136 <200 mg/dL [facility] Comment:Desirable Cholestero l: less than 200 mg/dLBorderline High Cholesterol: 200-239 mg/dLHigh Cholesterol: greater than 239 mg/dL LDL Cholesterol Calculated 73 <100 mg/dL [facility] Comment:Desirable LDL: less than 100 mg/dLNear Optimal/Above Optimal LDL: 110- 129 mg/dLBorderline High LDL: 130-159 mg/dLHigh LDL: 160-189 mg/dLVery High LDL: greater than or equal to 190 mg/dL HDL Cholesterol 47 >40 mg/dL [facility] Comment:Desirable HDL: great er than 40 mg/dL Note: This HDL assay may give artificially low results in patients with liver disease. Blood 11/15/2024 7:09 AM EDT 11/15/2024 7:09 AM EDT us Randi Cedeno MD LAB BLOOD ORDERABLES Fin al Result Performing Organization Address [facility]/ZIP Co de Phone Number [facility] [address] [place] [phone] * (ABNORMAL) Hm Colonoscopy (12/24/2021) Colonoscopy Abnormal( A) Normal Comment:FH of CRC 12/24/2021 Randi Cedeno MD HEALTH MAINTENANCE Final Result from Last 3 Months or Most Recently Relevant to Health Maintenance Insurance MEDICARE Care Teams Medical Advisor Relationship Specialty Start Date End Date Randi Cedeno MD [address] [place] [phone] PCP - General Family Medicine 04/22/20
--- OUTSIDE RECORDS SUMMARY | 2025-08-26 13:13 | XMS_ITS | Encounter Summary ---
Author Organization [employer] Address [address] [facility] [address] [place] [address] Care Team Providers Care Advanced Manufacturing Engineer Name Role Phone Randi Cedeno MD Primary Care Provider + Reason for Visit * Reason Comments Med Refill Encounter Details Date Type Department Care Team ([facility] st Contact Info) Description 08/12/2025 Refill [facility] [address], [place] [phone] Randi Cedeno MD [address] [place], [place] [phone] Lower urinary tract symptoms (LUTS) Social History Tobacco Use Types Packs/Day Years [...] as of this encounter Visit Diagnoses Diagnosis Lower urinary tract symptoms (LUTS) documented in this encounter Additional Health Concerns Assessment Noted Time PHQ-9 Depression Total Score: 0 07/09/20 24 1:15 PM EST documented as of this encounter Care Teams Advanced Manufacturing Engineer Relationship Specialty Start Date End Date Randi Cedeno MD [address] [place] [phone] PCP - General Family Medicine 04/22/20 documented as of this encounter
== END 2025-08-26 10:41 | disposition home or self-care (01) ==
LOC: HO.US 10:40
PROVIDERS: PCP Internal Medicine; Visit Provider Urology
DX: R35.1 Nocturia (principal)
CPT/HCPCS: 76857

== ENCOUNTER → 2025-08-26 10:42 | Outpatient (BNV) | payer MEDICARE, SELFPAY | PROVIDERS: PCP Internal Medicine; Visit Provider Radiology Diagnostic Radiology | DX: R35.1 Nocturia (principal) | CPT/HCPCS: 76857 ==